=== PATIENT | female | born 1940 | race Caucasian/White ===

== ENCOUNTER → 2016-09-29 | Day surgery (SDC) | payer MEDICARE, BC ==
[2016-09-28 10:39] VITALS: BMI 30.2
[~2016-09-29] MED LIST: SODIUM CHLORIDE 0.9% 1,000 ML IV SCH
[2016-09-29 10:49] VITALS: PULSE 95; TEMP 97.7
[2016-09-29 15:04] VITALS: BP 160/72
--- NOTE | 2016-09-29 16:00 | CE ---
DATE OF SERVICE: PROCEDURE: 1. 12-lead EC-lead ECG shows sinus rhythm with left atrial enlargement and normal MS interval and narrow QRS, normal ST segments. Normal QT interval and no evidence of delta waves, no epsilon waves. 2. Tilt Table Test: Baseline blood pressure was 197/90 mmHg, baseline heart rate 93 beats a minute. The patient was tilted upright at an angle of 70 degrees per protocol. With noninvasive continuous blood pressure monitoring her baseline blood pressure was 169/105 mmHg. With upright position at 70 degrees there was a drop in blood pressure about 20 to 30 mmHg but without any symptoms. Her blood pressure then subsequently remained in the 140s systolic without any symptoms. She was laid supine at the end of the procedure. There was a mild increase in heart rate to 110 beats a minute. IMPRESSION: Possible mild orthostatic hypotension syndrome, but she had no symptoms from change in her blood pressure.
== END ==
LOC: CATHEP 10:00
PROVIDERS: ATTEND Internal Medicine Clinical Cardiac Electrophysiology
DX: R55 Syncope and collapse (principal)
CPT/HCPCS: 93005; 93660

== ENCOUNTER → 2018-11-14 | Outpatient (CLI) | payer MEDICARE, BC ==
--- NOTE | 2018-11-15 08:16 | MM ---
Reason for exam: additional evaluation requested from prior study. History: Patient has history of breast cancer at age 77 and history of other cancer. Lumpectomy of the left breast, 2018. Taking antineoplastic for 1 year beginning at age 77. Physical Findings: Nurse did not find any significant physical abnormalities on exam. MG 3D Diag Mammo W/Cad VEE Bilateral CC and MLO view(s) were taken. Stable benign calcifications. There is chronic nodularity bilaterally. There is no discrete abnormality. No significant new findings when compared with previous films. These results were verbally communicated with the patient and result sheet given to the patient on 11/14/18. ASSESSMENT: Benign, BI-RAD 2 RECOMMENDATION: Follow-up diagnostic mammogram of both breasts in 1 year.
== END | disposition home or self-care (01) ==
LOC: RADMAMWWP 15:09
PROVIDERS: ATTEND Internal Medicine Hematology & Oncology
DX: Z12.31 Encounter for screening mammogram for malignant neoplasm of breast (principal); Z85.3 Personal history of malignant neoplasm of breast
CPT/HCPCS: 77066; G0279; 77062

== ENCOUNTER 2019-07-21 13:23 | Emergency (ER) | payer MEDICARE, BC ==
[2019-07-21 13:47] VITALS: RESP 18
[2019-07-21] MEDS ORDERED: DIPH,PERTUS(ACELL)TETVAC-LF 0.5 ML VIAL IM ONE (14:06)
[2019-07-21] MEDS ORDERED: LIDOCAINE 1% INJ 10MG/ML (20 ML MDV) SQ ONE (14:06)
--- NOTE | 2019-07-21 14:40 | XR ---
EXAMINATION TYPE: XR elbow complete LT DATE OF EXAM: 07/21/2019 COMPARISON: None HISTORY: Pain following fall TECHNIQUE: 2 view left elbow FINDINGS: Radius aligns normally with the humerus. There is mild soft tissue swelling over the radial aspect of the elbow. Anterior fat pad is normal. No elevation of posterior fat pad is evident. No di splaced fractures are evident. Joint space appears preserved. IMPRESSION: 1. No acute osseous abnormality. 2. There may be some soft tissue swelling over the radial aspect of the elbow
--- NOTE | 2019-07-21 15:15 | XR ---
EXAMINATION TYPE: XR knee complete RT DATE OF EXAM: 07/21/2019 COMPARISON: None HISTORY: Pain TECHNIQUE: Three-view right knee FINDINGS: Degenerative changes are present along the medial tibial plateau and distal radial femoral condyle. Medial compartment joint space spurring is present. Some lateral femoral condylar spurring i s present. There is large patellofemoral joint space spurring. No joint effusion is evident. IMPRESSION: 1. Advanced degenerative joint changes right knee. 2. No acute posttraumatic changes
--- NOTE | 2019-07-21 15:21 | ED ---
Upper Extremity HPI - General Chief Complaint: Extremity Injury, Upper Stated Complaint: Fall Time Seen by Provider: 07/21/19 13:50 Source: patient, RN notes reviewed, old records reviewed Mode of arrival: wheelchair Limitations: no limitations - History of Present Illness Initial Comments: Patient is a 79 year old female, presents today for concern for fall yesterday, and hitting left elbow and R knee. She has a laceration over left elbow. She reports full range of motion. Patient reports she had no chest pain or dizziness prior to her fall. She states that she was able to ambulate and reports she is here for evaluation for the laceration. She states that she has no other complaints. - Related Data Home Medications Medication Instructions Recorded Confirmed ARIPiprazole [Abilify] 2 mg PO DAILY 09/28/16 09/28/16 Acetaminophen [Tylenol Arthritis] 650 mg PO BID 09/28/16 09/28/16 Famotidine [Pepcid] 20 mg PO HS 09/28/16 09/29/16 Levothyroxine Sodium [Synthroid] 112 mcg PO DAILY 09/28/16 09/28/16 Lovastatin [Mevacor] 20 mg PO HS 09/28/16 09/28/16 Meclizine [Antivert] 25 mg PO TID PRN 09/28/16 09/29/16 Meloxicam [Mobic] 15 mg PO DAILY PRN 09/28/16 09/29/16 cloZAPine [Clozaril] 200 mg PO 1600 09/28/16 09/28/16 cloZAPine [Clozaril] 350 mg PO HS 09/28/16 09/28/16 levETIRAcetam [Keppra] 200 mg PO TID 09/28/16 09/29/16 Allergies Allergy/AdvReac Type Severity Reaction Status Date / Time No Known Allergies Allergy Verified 07/21/19 13:47 Review of Systems ROS Statement: Those systems with pertinent positive or pertinent negative responses have been documented in the HPI. ROS Other: All systems not noted in ROS Statement are negative. Past Medical History Past Medical History: Cancer, Memory Impairment, Seizure Disorder, Thyroid Disorder Additional Past Medical History / Comment(s): see Dr Hernández H & P, hx. cervical cancer, dizzy spells & falling, breast ca History of Any Multi-Drug Resistant Organisms: None Reported Past Surgical History: Breast Surgery Additional Past Surgical History / Comment(s): surg for breast abscess x2, lum pectomy left Past Anesthesia/Blood Transfusion Reactions: No Reported Reaction Past Psychological History: Anxiety Smoking Status: Never smoker Past Alcohol Use History: None Reported Past Drug Use History: None Reported - Past Family History Mother Family Medical History: No Reported History General Exam - General Exam Comments Initial Comments: 79 year old female, no distress. Limitations: no limitations General appearance: alert, in no apparent distress Head exam: Present: atraumatic, normocephalic, normal inspection Eye exam: Present: normal appearance, PERRL, EOMI. Absent: scleral icterus, conjunctival injection, periorbital swelling ENT exam: Present: normal exam, mucous membranes moist Neck exam: Present: normal inspection. Absent: tenderness, meningismus, lymphadenopathy Respiratory exam: Present: normal lung sounds bilaterally. Absent: respiratory distress, wheezes, rales, rhonchi, stridor Cardiovascular Exam: Present: regular rate, normal rhythm, normal heart sounds. Absent: systolic murmur, diastolic murmur, rubs, gallop, clicks GI/Abdominal exam: Present: soft, normal bowel sounds. Absent: distended, tenderness, guarding, rebound, rigid Extremities exam: Present: full ROM, normal capillary refill. Absent: normal inspection, tenderness, pedal edema, joint swelling, calf tenderness Left Upper Arm exam: Present: normal inspection, full ROM Elbow exam: Present: full ROM, laceration (3cm laceration over olecranon). Absent: normal inspection Forearm Wrist exam: Present: normal inspection, full ROM Hand Wrist exam: Present: normal inspection Neuro motor exam: Present: wrist extension intact, thumb opposition intact, thumb IP flexion intact, thumb adduction intact, fingers 2-5 abduction intact (d) Vascular: Present: normal capillary refill Back exam: Present: normal inspection Neurological exam: Present: alert, oriented X3, CN II-XII intact Psychiatric exam: Present: normal affect, normal mood Skin exam: Present: warm, dry, intact, normal color. Absent: rash Course Vital Signs 07/21/19 07/21/19 13:43 15:10 Temperature 98.7 F 98.5 F Pulse Rate 99 89 Respiratory 18 18 Rate Blood Pressure 132/68 132/80 O2 Sat by Pulse 97 100 Oximetry Procedures - Laceration Laceration #1 Site: upper extremity (elbow) Size (cm): 3 Description: linear Depth: simple, single layer Anesthetic Used: lidocaine 1% Anesthesia Technique: local infiltration Amount (mls): 4 Pre-repair: wound explored, irrigated extensively Type of Sutures: nylon Size of Sutures: 5-0 Number of Sutures: 4 Technique: simple, interrupted Patient Tolerated Procedure: well, no complications Medical Decision Making - Medical Decision Making 79 year old female with knee pain and elbow pain. She had fallen yesterday. She denies chest pain or lightheadedness. Patient has full ROM of knee and elbow. Laceration over elbow was repaired with 4 sutures. TDAP updated. xray of knee and elbow show no fracture. Discussed suture care and close follow up. Discussed return parameters. - Radiology Data Radiology results: report reviewed Advanced degenerative joint changes right knee. No acute post traumatic changes. Elbow X-ray shows no acute osseous abnormality. Soft tissue swelling over radial aspect elbow. Disposition Clinical Impression: Elbow laceration, Fall, Knee contusion Disposition: HOME SELF-CARE Condition: Good Instructions (If sedation given, give patient instructions): Care For Your Stitches (DC), Knee Sprain (DC), Elbow Sprain (ED) Additional Instructions: Please return to the emergency room in 8-10 days to have sutures removed. Please leave wound covered for the first 24-48 hours and then leave open to air after that time. Please use clean soap and water to clean the suture area to prevent scabbing over the top of your sutures. Please watch for any signs of infection which may include but not limited to increased pain, swelling, redness, fever or chills. Please return to the emergency room if any signs of infection do occur. Please return to the emergency room for any other concerns or complications. Is patient prescribed a controlled substance at d/c from ED?: No Referrals: Anthony English MD [Primary Care Provider] - 1-2 days Time of Disposition: 15:20
[2019-07-21 15:34] VITALS: BP 132/80; PULSE 89; TEMP 98.5
== END 2019-07-21 15:29 | disposition home or self-care (01) ==
LOC: EC 13:23
DX: S51.012A Laceration without foreign body of left elbow, initial encounter (principal); S80.01XA Contusion of right knee, initial encounter; Z23 Encounter for immunization; E07.9 Disorder of thyroid, unspecified; G40.909 Epilepsy, unspecified, not intractable, without status epilepticus; Z79.890 Hormone replacement therapy; Z79.899 Other long term (current) drug therapy; Z85.3 Personal history of malignant neoplasm of breast; Z85.41 Personal history of malignant neoplasm of cervix uteri; W18.09XA Striking against other object with subsequent fall, initial encounter
CPT/HCPCS: 73080; 73562; 90715; 99284; 12002; 90471; J2001

== ENCOUNTER → 2020-04-06 | Outpatient (CLI) | payer MEDICARE, BC ==
--- NOTE | 2020-04-06 14:38 | MM ---
Reason for exam: additional evaluation requested from prior study. Last mammogram was performed 1 year and 5 months ago. History: Patient has history of breast cancer at age 77 and history of other cancer. Lumpectomy of the left breast, 2018. Taking antineoplastic for 1 year beginning at age 77. Physical Findings: Nurse did not find any significant physical abnormalities on exam. MG 3D Diag Mammo W/Cad VEE Bilateral CC and MLO view(s) were taken. Prior study comparison: November 14, 2018, bilateral MG 3d diag mammo w/cad VEE. September 21, 2017, mammogram. July 05, 2017, mammogram. December 01, 2016, mammogram. The breast tissue is heterogeneously dense. This may lower the sensitivity of mammography. Previous mammotome biopsy in the left breast. There is chronic nodularity in the right breast subareolar region and anterior medial aspect. Post surgical and post therapy changes left breast. Benign vascular and secretory calcifications on the left. Mole superior left breast. No significant new findings when compared with previous films. These results were verbally communicated with the patient and result sheet given to the patient on 04/06/20. ASSESSMENT: Benign, BI-RAD 2 RECOMMENDATION: Follow-up diagnostic mammogram of both breasts in 1 year.
--- NOTE | 2020-04-06 18:21 | BD ---
EXAMINATION TYPE: Axial Bone Density DATE OF EXAM: 04/06/2020 COMPARISON: NONE CLINICAL HISTORY: Postmenopausal screening Height: 58 Weight: FRAX RISK QUESTIONS: Alcohol (3 or more units per day): no Family History (Parent hip fracture): no Glucocorticoids (More than 3mos): no (Ex: prednisone, prednisolone, methylprednisolone, dexamethasone, and hydrocortisone). History of Fracture in Adulthood: no Secondary Osteoporosis: 1. Type 1 Diabetes: no 2. Hyperthyroidism: no 3. Menopause before 45: yes 4. Malnutrition: no 5. Chronic liver disease: no Rheumatoid Arthritis: no Current Tobacco Use: no RISK FACTORS HISTORY OF: Family History of Osteoporosis: no Active: no Diet low in dairy products/other sources of calcium: no Postmenopausal woman: unsure Lost more than 2 inches in height since high school: yes Frequent falls: pt very unsteady MEDICATIONS: stoke meds, blood pressure meds, cholesterol meds, Thyroid Medications: synthroid How Lon years Additional History: pt has had 2 strokes EXAM MEASUREMENTS: Bone mineral densitometry was performed using the [employer]. Bone mineral density as measured about the Lumbar spine is: ----- L1-L4(G/cm2): 1.462 T Score Values are as follows: ----- L2: 2.7 ----- L3: 3.9 ----- L4: 2.7 ----- L1-L4: 2.4 Bone mineral density : baseline Bone mineral density about the R hip (g/cm2): 0.913 Bone mineral density about the L hip (g/cm2): 0.719 T Score values are as follows: -----R Neck: -0.9 -----L Neck: -2.3 -----R Total: 0.1 -----L Total: -1.1 Bone mineral density : baseline IMPRESSION: Osteopenia (T Score between -2.5 and -1). There is slightly increased risk of fracture and the patient may be considered for treatment. Re-Screen 2-5 years. NOTE: T-SCORE=SD OF THE YOUNG ADULT MEAN.
== END | disposition home or self-care (01) ==
LOC: RADMAMWWP 10:16
PROVIDERS: ATTEND Internal Medicine Hematology & Oncology
DX: Z08 Encounter for follow-up examination after completed treatment for malignant neoplasm (principal); M85.80 Other specified disorders of bone density and structure, unspecified site; Z85.3 Personal history of malignant neoplasm of breast; Z79.890 Hormone replacement therapy
CPT/HCPCS: 77080; 77066; G0279; 77062

== ENCOUNTER 2021-03-16 16:37 | Inpatient (IN) | payer MEDICARE, BC ==
[2021-03-16 17:58] LABS: Basophils % (A) 0 %; Eosinophils % (A) 0 %; HCT 36.8 % (34.0-46.0); HGB 12.4 gm/dL (11.4-16.0); Lymphocytes # (A) 1.1 k/uL (1.0-4.8); Lymphocytes % (A) 24 %; MCH 31.2 pg (25.0-35.0); MCHC 33.8 g/dL (31.0-37.0); MCV 92.3 fL (80.0-100.0); Mean Platelet Volume 9.2; Monocytes # (A) 0.2 k/uL (0-1.0); Monocytes % (A) 4 %; Neutrophils # (A) 3.2 k/uL (1.3-7.7); Neutrophils % (A) 69 %; Platelet Count 141 k/uL (150-450); RBC 3.99 m/uL (3.80-5.40); RDW 13.6 % (11.5-15.5); WBC 4.7 k/uL (3.8-10.6)
--- NOTE | 2021-03-16 18:04 | ED ---
Weakness HPI - General Chief complaint: Weakness Stated complaint: Fluid Retention, Hearing Voices Source: patient, EMS Mode of arrival: EMS - History of Present Illness Initial comments: 81-year-old female past history of seizures, thyroid disorder, schizophrenia who presents emergency room with reported weakness and auditory hallucinations. Family is at bedside and helps provide the history. They state that she is a resident at [facility] where she is independent. She felt extremely weak today and was unable to get up out of bed. She had urinary incontinence. She states she has been hearing voices in her head which are louder than normal. She reports that she has been taking her medications as directed. Has developed some lower extremity edema which is uncommon for her. Family came over and found her lying in bed and called EMS. She does wear life alert however the patient was so forgetful that she forgot to use it. She admits to some mild shortness of breath. No chest pain. Denies headaches or visual changes. No fevers or chills. No abdominal pain. No changes in bowel or bladder habits. No other alleviating, precipitating or modified factors - Related Data Home Medications Medication Instructions Recorded Confirmed ARIPiprazole [Abilify] 2 mg PO DAILY 09/28/16 03/16/21 Levothyroxine Sodium [Synthroid] 112 mcg PO DAILY 09/28/16 03/16/21 Lovastatin [Mevacor] 20 mg PO HS 09/28/16 03/16/21 Meclizine [Antivert] 25 mg PO BID PRN 09/28/16 03/16/21 cloZAPine [Clozaril] 300 mg PO HS 09/28/16 03/16/21 Ascorbic Acid [Vitamin C] 1,000 mg PO DAILY@119903/16/21 03/16/21 Calcium Carbonate [Calcium] 600 mg PO DAILY@119903/16/21 03/16/21 Cholecalciferol [Vitamin D3 (10 20 mcg PO DAILY@119903/16/21 03/16/21 Mcg = 400 Iu)] Fluticasone Nasal [place] [Flonase 1 spray EA NOSTRIL 03/16/21 03/16/21 Nasal [place]] Letrozole 2.5 mg PO 03/16/21 03/16/21 Metoprolol Succinate (ER) [Toprol 25 mg PO DAILY 03/16/21 03/16/21 XL] Multivitamins, Thera [Multivitamin 1 tab PO DAILY 03/16/21 03/16/21 (formulary)] Pantoprazole Sodium [Protonix] 40 mg PO DAILY 03/16/21 03/16/21 Rivastigmine Tartrate 1.5 mg PO BID 03/16/21 03/16/21 [Rivastigmine] Tolterodine ER [Detrol LA] 4 mg PO W/SUPPER 03/16/21 03/16/21 Vitamin E (Dl,Tocopheryl Acet) 400 unit PO DAILY@1200 03/16/21 03/16/21 [Vitamin E (400 Iu = 180 mg)] polyethylene glycoL 3350 [Miralax] 17 gm PO DAILY 03/16/21 03/16/21 rOPINIRole HCL [Requip] 0.25 mg PO W/SUPPER 03/16/21 03/16/21 Allergies Allergy/AdvReac Type Severity Reaction Status Date / Time amoxicillin [From Augmentin] AdvReac Rash/Hives Verified 03/16/21 18:45 capsaicin [From Zostrix] AdvReac Rash/Hives Verified 03/16/21 18:46 clavulanic acid AdvReac Rash/Hives Verified 03/16/21 18:45 [From Augmentin] Review of Systems ROS Statement: Those systems with pertinent positive or pertinent negative responses have been documented in the HPI. ROS Other: All systems not noted in ROS Statement are negative. Past Medical History Past Medical History: Cancer, Memory Impairment, Seizure Disorder, Thyroid Disorder Additional Past Medical History / Comment(s): hx. cervical cancer, dizzy spells & falling, breast ca History of Any Multi-Drug Resistant Organisms: None Reported Past Surgical History: Breast Surgery Additional Past Surgical History / Comment(s): surg for breast abscess x2, lumpectomy left Past Anesthesia/Blood Transfusion Reactions: No Reported Reaction Past Psychological History: Anxiety Smoking Status: Former smoker Past Alcohol Use History: None Reported Past Drug Use History: None Reported - Past Family History Mother Family Medical History: No Reported History General Exam General appearance: alert, in no apparent distress Head exam: Present: atraumatic, normocephalic, normal inspection Eye exam: Present: normal appearance, PERRL, EOMI. Absent: scleral icterus, conjunctival injection, periorbital swelling ENT exam: Present: normal exam, mucous membranes moist Neck exam: Present: normal inspection. Absent: tenderness, meningismus, lymphadenopathy Respiratory exam: Present: normal lung sounds bilaterally. Absent: respiratory distress, wheezes, rales, rhonchi, stridor Cardiovascular Exam: Present: regular rate, normal rhythm, normal heart sounds. Absent: systolic murmur, diastolic murmur, rubs, gallop, clicks GI/Abdominal exam: Present: soft, normal bowel sounds. Absent: distended, tenderness, guarding, rebound, rigid Extremities exam: Present: full ROM, normal capillary refill, pedal edema. Absent: tenderness, joint swelling, calf tenderness Back exam: Present: normal inspection Neurological exam: Present: alert, oriented X3, CN II-XII intact Psychiatric exam: Present: normal affect, normal mood Skin exam: Present: warm, dry, intact, normal color. Absent: rash Course Vital Signs 03/16/21 03/16/21 03/16/21 16:44 17:49 20:22 Temperature 97.8 F Pulse Rate 97 90 97 Respiratory 18 18 20 Rate Blood Pressure 176/98 171/85 174/75 O2 Sat by Pulse 99 98 99 Oximetry 03/16/21 22:14 Temperature Pulse Rate 97 Respiratory 20 Rate Blood Pressure 174/98 O2 Sat by Pulse 99 Oximetry EKG Findings - EKG Comments: EKG Findings:: EKG demonstrates normal sinus rhythm with rate of 89. IA interval 142. QRS is 76. QTC of 462. No acute ST segment elevations or depressions concerning for ischemic changes Medical Decision Making - Medical Decision Making Upon arrival patient's placed into room 11. A thorough history and physical exam was performed. IV is established. Laboratory studies were conducted. Chest x-ray was performed as well as lower extremity Dopplers due to the lower extremity edema. Review of the laboratory studies demonstrate a platelet count of 141. D-dimer 0.7 and troponin is negative. Urinalysis demonstrates 2+ ketones. TSH 2.7. Chest x-ray demonstrates no active cardio pulmonary disease. Venous Doppler of the lower extremity demonstrates no DVT. Patient does have an elevated d-dimer however is 0.7. This would be considered negative when we age-adjusted the patient's d-dimer. Lower extremity Dopplers are negative and the patient's vitals are stable therefore CT will not be performed at this time. I did discuss the results with the patient and her family at bedside. As she is weak and unable to ambulate or care for herself I did recommend admission for physical therapy and occupational therapy evaluation. I will consult psychiatry. I called and spoke with Soraya from [facility] who agreed to admit the patient. She was taken to the floor in stable condition. - Lab Data Result diagrams: 03/17/21 04:35 03/18/21 06:02 Lab Results 03/16/21 03/16/21 03/16/21 Range/Units 17:47 17:47 17:47 WBC 4.7 (3.8-10.6) k/uL RBC 3.99 (3.80-5.40) m/uL Hgb 12.4 (11.4-16.0) gm/dL Hct 36.8 (34.0-46.0) % MCV 92.3 (80.0-100.0) fL MCH 31.2 (25.0-35.0) pg MCHC 33.8 (31.0-37.0) g/dL RDW 13.6 (11.5-15.5) % Plt Count 141 L (150-450) k/uL MPV 9.2 Neutrophils % 69 % Lymphocytes % 24 % Monocytes % 4 % Eosinophils % 0 % Basophils % 0 % Neutrophils # 3.2 (1.3-7.7) k/uL Lymphocytes # 1.1 (1.0-4.8) k/uL Monocytes # 0.2 (0-1.0) k/uL Eosinophils # 0.0 (0-0.7) k/uL Basophils # 0.0 (0-0.2) k/uL PT 9.7 (9.0-12.0) sec INR 0.9 (<1.2) D-Dimer (<0.60) mg/L FEU Sodium 141 (137-145) mmol/L Potassium 3.7 (3.5-5.1) mmol/L Chloride 106 (98-107) mmol/L Carbon Dioxide 23 (22-30) mmol/L Anion Gap 12 mmol/L BUN 11 (7-17) mg/dL Creatinine 0.57 (0.52-1.04) mg/dL Est GFR (CKD-EPI)AfAm >90 (>60 ml/min/1.73 sqM) Est GFR (CKD-EPI)NonAf 87 (>60 ml/min/1.73 sqM) Glucose 88 (74-99) mg/dL Calcium 8.9 (8.4-10.2) mg/dL Total Bilirubin 0.3 (0.2-1.3) mg/dL AST 28 (14-36) U/L ALT 15 (4-34) U/L Alkaline Phosphatase 103 (38-126) U/L Troponin I (0.000-0.034) ng/mL NT-Pro-B Natriuret Pep pg/mL Total Protein 6.5 (6.3-8.2) g/dL Albumin 4.1 (3.5-5.0) g/dL TSH (0.465-4.680) mIU/L Urine Color Urine Appearance (Clear) Urine pH (5.0-8.0) Ur Specific [place] (1.001-1.035) Urine Protein (Negative) Urine Glucose (UA) (Negative) Urine Ketones (Negative) Urine Blood (Negative) Urine Nitrite (Negative) Urine Bilirubin (Negative) Urine Urobilinogen (<2.0) mg/dL Ur Leukocyte Esterase (Negative) Clozapine (200-700) ng/mL Norclozapine (200-700) ng/mL 03/16/21 03/16/21 03/16/21 Range/Units 17:47 17:47 17:47 WBC (3.8-10.6) k/uL RBC (3.80-5.40) m/uL Hgb (11.4-16.0) gm/dL Hct (34.0-46.0) % MCV (80.0-100.0) fL MCH (25.0-35.0) pg MCHC (31.0-37.0) g/dL RDW (11.5-15.5) % Plt Count (150-450) k/uL MPV Neutrophils % % Lymphocytes % % Monocytes % % Eosinophils % % Basophils % % Neutrophils # (1.3-7.7) k/uL Lymphocytes # (1.0-4.8) k/uL Monocytes # (0-1.0) k/uL Eosinophils # (0-0.7) k/uL Basophils # (0-0.2) k/uL PT (9.0-12.0) sec INR (<1.2) D-Dimer (<0.60) mg/L FEU Sodium (137-145) mmol/L Potassium (3.5-5.1) mmol/L Chloride (98-107) mmol/L Carbon Dioxide (22-30) mmol/L Anion Gap mmol/L BUN (7-17) mg/dL Creatinine (0.52-1.04) mg/dL Est GFR (CKD-EPI)AfAm (>60 ml/min/1.73 sqM) Est GFR (CKD-EPI)NonAf (>60 ml/min/1.73 sqM) Glucose (74-99) mg/dL Calcium (8.4-10.2) mg/dL Total Bilirubin (0.2-1.3) mg/dL AST (14-36) U/L ALT (4-34) U/L Alkaline Phosphatase (38-126) U/L Troponin I <0.012 (0.000-0.034) ng/mL NT-Pro-B Natriuret Pep 167 pg/mL Total Protein (6.3-8.2) g/dL Albumin (3.5-5.0) g/dL TSH 2.770 (0.465-4.680) mIU/L Urine Color Urine Appearance (Clear) Urine pH (5.0-8.0) Ur Specific [place] (1.001-1.035) Urine Protein (Negative) Urine Glucose (UA) (Negative) Urine Ketones (Negative) Urine Blood (Negative) Urine Nitrite (Negative) Urine Bilirubin (Negative) Urine Urobilinogen (<2.0) mg/dL Ur Leukocyte Esterase (Negative) Clozapine (200-700) ng/mL Norclozapine (200-700) ng/mL 03/16/21 03/16/21 03/16/21 Range/Units 17:47 18:38 21:54 WBC (3.8-10.6) k/uL RBC (3.80-5.40) m/uL Hgb (11.4-16.0) gm/dL Hct (34.0-46.0) % MCV (80.0-100.0) fL MCH (25.0-35.0) pg MCHC (31.0-37.0) g/dL RDW (11.5-15.5) % Plt Count (150-450) k/uL MPV Neutrophils % % Lymphocytes % % Monocytes % % Eosinophils % % Basophils % % Neutrophils # (1.3-7.7) k/uL Lymphocytes # (1.0-4.8) k/uL Monocytes # (0-1.0) k/uL Eosinophils # (0-0.7) k/uL Basophils # (0-0.2) k/uL PT (9.0-12.0) sec INR (<1.2) D-Dimer 0.70 H (<0.60) mg/L FEU Sodium (137-145) mmol/L Potassium (3.5-5.1) mmol/L Chloride (98-107) mmol/L Carbon Dioxide (22-30) mmol/L Anion Gap mmol/L BUN (7-17) mg/dL Creatinine (0.52-1.04) mg/dL Est GFR (CKD-EPI)AfAm (>60 ml/min/1.73 sqM) Est GFR (CKD-EPI)NonAf (>60 ml/min/1.73 sqM) Glucose (74-99) mg/dL Calcium (8.4-10.2) mg/dL Total Bilirubin (0.2-1.3) mg/dL AST (14-36) U/L ALT (4-34) U/L Alkaline Phosphatase (38-126) U/L Troponin I <0.012 (0.000-0.034) ng/mL NT-Pro-B Natriuret Pep pg/mL Total Protein (6.3-8.2) g/dL Albumin (3.5-5.0) g/dL TSH (0.465-4.680) mIU/L Urine Color Light Yellow Urine Appearance Clear (Clear) Urine pH 7.0 (5.0-8.0) Ur Specific [place] 1.007 (1.001-1.035) Urine Protein Negative (Negative) Urine Glucose (UA) Negative (Negative) Urine Ketones 2+ H (Negative) Urine Blood Negative (Negative) Urine Nitrite Negative (Negative) Urine Bilirubin Negative (Negative) Urine Urobilinogen <2.0 (<2.0) mg/dL Ur Leukocyte Esterase Negative (Negative) Clozapine (200-700) ng/mL Norclozapine (200-700) ng/mL 09/01/21 09/01/21 09/01/21 Range/Units 01:27 04:35 04:35 WBC 5.2 (3.8-10.6) k/uL RBC 3.62 L (3.80-5.40) m/uL Hgb 10.6 L (11.4-16.0) gm/dL Hct 33.4 L (34.0-46.0) % MCV 92.1 (80.0-100.0) fL MCH 29.3 (25.0-35.0) pg MCHC 31.8 (31.0-37.0) g/dL RDW 13.5 (11.5-15.5) % Plt Count 175 (150-450) k/uL MPV 8.8 Neutrophils % 57 % Lymphocytes % 35 % Monocytes % 5 % Eosinophils % 0 % Basophils % 0 % Neutrophils # 3.0 (1.3-7.7) k/uL Lymphocytes # 1.8 (1.0-4.8) k/uL Monocytes # 0.3 (0-1.0) k/uL Eosinophils # 0.0 (0-0.7) k/uL Basophils # 0.0 (0-0.2) k/uL PT (9.0-12.0) sec INR (<1.2) D-Dimer (<0.60) mg/L FEU Sodium 138 (137-145) mmol/L Potassium 3.1 L (3.5-5.1) mmol/L Chloride 104 (98-107) mmol/L Carbon Dioxide 28 (22-30) mmol/L Anion Gap 6 mmol/L BUN 13 (7-17) mg/dL Creatinine 0.78 (0.52-1.04) mg/dL Est GFR (CKD-EPI)AfAm 82 (>60 ml/min/1.73 sqM) Est GFR (CKD-EPI)NonAf 71 (>60 ml/min/1.73 sqM) Glucose 98 (74-99) mg/dL Calcium 8.7 (8.4-10.2) mg/dL Total Bilirubin (0.2-1.3) mg/dL AST (14-36) U/L ALT (4-34) U/L Alkaline Phosphatase (38-126) U/L Troponin I <0.012 (0.000-0.034) ng/mL NT-Pro-B Natriuret Pep pg/mL Total Protein (6.3-8.2) g/dL Albumin (3.5-5.0) g/dL TSH (0.465-4.680) mIU/L Urine Color Urine Appearance (Clear) Urine pH (5.0-8.0) Ur Specific [place] (1.001-1.035) Urine Protein (Negative) Urine Glucose (UA) (Negative) Urine Ketones (Negative) Urine Blood (Negative) Urine Nitrite (Negative) Urine Bilirubin (Negative) Urine Urobilinogen (<2.0) mg/dL Ur Leukocyte Esterase (Negative) Clozapine (200-700) ng/mL Norclozapine (200-700) ng/mL 03/18/21 03/18/21 Range/Units 06:02 06:02 WBC (3.8-10.6) k/uL RBC (3.80-5.40) m/uL Hgb (11.4-16.0) gm/dL Hct (34.0-46.0) % MCV (80.0-100.0) fL MCH (25.0-35.0) pg MCHC (31.0-37.0) g/dL RDW (11.5-15.5) % Plt Count (150-450) k/uL MPV Neutrophils % % Lymphocytes % % Monocytes % % Eosinophils % % Basophils % % Neutrophils # (1.3-7.7) k/uL Lymphocytes # (1.0-4.8) k/uL Monocytes # (0-1.0) k/uL Eosinophils # (0-0.7) k/uL Basophils # (0-0.2) k/uL PT (9.0-12.0) sec INR (<1.2) D-Dimer (<0.60) mg/L FEU Sodium (137-145) mmol/L Potassium 3.9 (3.5-5.1) mmol/L Chloride (98-107) mmol/L Carbon Dioxide (22-30) mmol/L Anion Gap mmol/L BUN (7-17) mg/dL Creatinine (0.52-1.04) mg/dL Est GFR (CKD-EPI)AfAm (>60 ml/min/1.73 sqM) Est GFR (CKD-EPI)NonAf (>60 ml/min/1.73 sqM) Glucose (74-99) mg/dL Calcium (8.4-10.2) mg/dL Total Bilirubin (0.2-1.3) mg/dL AST (14-36) U/L ALT (4-34) U/L Alkaline Phosphatase (38-126) U/L Troponin I (0.000-0.034) ng/mL NT-Pro-B Natriuret Pep pg/mL Total Protein (6.3-8.2) g/dL Albumin (3.5-5.0) g/dL TSH (0.465-4.680) mIU/L Urine Color Urine Appearance (Clear) Urine pH (5.0-8.0) Ur Specific [place] (1.001-1.035) Urine Protein (Negative) Urine Glucose (UA) (Negative) Urine Ketones (Negative) Urine Blood (Negative) Urine Nitrite (Negative) Urine Bilirubin (Negative) Urine Urobilinogen (<2.0) mg/dL Ur Leukocyte Esterase (Negative) Clozapine 676 (200-700) ng/mL Norclozapine 292 (200-700) ng/mL Disposition Clinical Impression: Weakness, Auditory hallucination Disposition: ADMITTED IP TO THIS [facility] Condition: Stable Is patient prescribed a controlled substance at d/c from ED?: No Decision to Admit Reason: Admit from EC Decision Date: 03/16/21 Decision Time: 21:12
[2021-03-16 18:08] LABS: INR 0.9 (<1.2); Prothrombin Time 9.7 sec (9.0-12.0)
[2021-03-16 18:11] LABS: ALT 15 U/L (4-34); AST 28 U/L (14-36); African American GFR (CKD) >90 (>60 ml/min/1.73 sqM); Albumin 4.1 g/dL (3.5-5.0); Alkaline Phosphatase 103 U/L (38-126); Anion Gap 12 mmol/L; Blood Urea Nitrogen 11 mg/dL (7-17); Calcium 8.9 mg/dL (8.4-10.2); Carbon Dioxide 23 mmol/L (22-30); Chloride 106 mmol/L (98-107); Glucose 88 mg/dL (74-99); Non-African American GFR(CKD) 87 (>60 ml/min/1.73 sqM); Potassium 3.7 mmol/L (3.5-5.1); Sodium 141 mmol/L (137-145); Total Bilirubin 0.3 mg/dL (0.2-1.3); Total Protein 6.5 g/dL (6.3-8.2)
[2021-03-16 19:01] LABS: Appearance,Urine Clear (Clear); Bilirubin,Urine Negative (Negative); Blood,Urine Negative (Negative); Color,Urine Light Yellow; Glucose,Urine (UA) Negative (Negative); Ketones,Urine 2+ (Negative); Leukocyte Esterase,Urine Negative (Negative); Nitrite,Urine Negative (Negative); Protein,Urine Negative (Negative); Specific Gravity,Urine 1.007 (1.001-1.035); Urobilinogen,Urine <2.0 mg/dL (<2.0)
--- NOTE | 2021-03-16 19:12 | US ---
EXAMINATION TYPE: US venous doppler duplex LE BI DATE OF EXAM: 03/16/2021 6:04 PM COMPARISON: NONE CLINICAL HISTORY: leg swelling. SIDE PERFORMED: Bilateral TECHNIQUE: The lower extremity deep venous system is examined utilizing real time linear array sonog van with graded compression, doppler sonography and color-flow sonography. VESSELS IMAGED: Common Femoral Vein Deep Femoral Vein Greater Saphenous Vein * Femoral Vein Popliteal Vein Small Saphenous Vein * Proximal Calf Veins (* superficial vessels) Right Leg: Negative for DVT Left Leg: Negative for DVT IMPRESSION: No evidence of deep vein thrombosis in both legs.
--- NOTE | 2021-03-16 19:53 | XR ---
EXAMINATION TYPE: XR chest 2V DATE OF EXAM: 03/16/2021 COMPARISON: NONE HISTORY: Short of breath TECHNIQUE: 2 views FINDINGS: Heart is normal. Lungs are clear of infiltrate. Thoracic aorta is atheromatous. There are n o hilar masses. There are chest leads. Bony thorax is intact. There is minor spurring in the thoracic spine. IMPRESSION: No active cardiopulmonary disease. Normal heart.
[2021-03-16] MEDS ORDERED: NALOXONE 0.4 MG/ML 1 ML VIAL IV PRN (21:12)
[2021-03-17] MEDS: LEVOTHYROXINE 112 MCG TAB PO SCH (05:11)
[2021-03-17 05:18] LABS: Basophils % (A) 0 %; Eosinophils % (A) 0 %; HCT 33.4 % (34.0-46.0); HGB 10.6 gm/dL (11.4-16.0); Lymphocytes # (A) 1.8 k/uL (1.0-4.8); Lymphocytes % (A) 35 %; MCH 29.3 pg (25.0-35.0); MCHC 31.8 g/dL (31.0-37.0); MCV 92.1 fL (80.0-100.0); Mean Platelet Volume 8.8; Monocytes # (A) 0.3 k/uL (0-1.0); Monocytes % (A) 5 %; Neutrophils % (A) 57 %; Platelet Count 175 k/uL (150-450); RBC 3.62 m/uL (3.80-5.40); RDW 13.5 % (11.5-15.5); WBC 5.2 k/uL (3.8-10.6)
[2021-03-17 05:31] LABS: Calcium 8.7 mg/dL (8.4-10.2); Potassium 3.1 mmol/L (3.5-5.1)
[2021-03-17] MEDS ORDERED: Potassium Replacement Protocol 1 EACH MISC MISCELLANE PRN (05:50)
[2021-03-17] MEDS: POTASSIUM CHLORIDE ER 20 MEQ TAB.ER PO SCH ×2 (06:03→09:18)
[2021-03-17] MEDS: METOPROLOL SUCCINATE (ER) 25 MG TAB.ER.24H PO SCH (09:18)
[2021-03-17] MEDS: ARIPiprazole 2 MG TAB PO SCH (09:19)
--- NOTE | 2021-03-17 14:04 | P.CN ---
Psychiatric Consult - . Consult date: 03/17/21 Consult:: 03/17/21 13:01 IDENTIFYING DATA: This patient is a 81-year-old female, currently lives independently in [facility] [place] in an apartment and has 3 kids and is currently retired. REASON FOR REFERRAL: Psychiatry was consulted for "auditory hallucinations and history of schizophrenia". HISTORY OF PRESENT ILLNESS: The patient presented to the hospital on 03/16 for weakness and auditory hallucinations. Patient apparently was unable to get out of bed and had urinary incontinence according to ER report. Patient also was reporting an increase in her auditory hallucinations. Patient's troponins and chest x-ray were negative. Patient's nurse taking care of her states that she is not complaining of auditory hallucinations any longer and has been calm and cooperative. Patient was seen sitting at the bedside on her chair and was alert and able to speak with racebook writer. She states that she was urinating in her bed and didn't want to get the carpet wet. She was denying having any weakness. She claims that she was not able to get up and answer the phone when her children called her. She states that she does have a history of falls at home. She claims that she does have good support from her kids as they come and see her often and claims that her son is her guardian. She came that she has a history of schizophrenia for the past 20 years and has been on clozapine for several years now. She is denying any chest pain or any significant side effects from the medication. She states that she follows up with a nurse practitioner at [facility]. She states that her sleep is fair and her appetite is fair. At this time patient denies any suicidal or homical ideations, intent or plan. Patient denies any auditory, visual hallucinations and denies any paranoia or delusions. Patients admits to using no recreational drugs or cigarettes racebook writer spoke with patient son/godfrey at [phone] who stated his concern about his mother's auditory hallucinations in her medications. She had several questions about the medications and her treatment which were answered. Milieu Technician discussed clozapine and the side effects and risk her azul of the medication and also the need for continued follow up with [facility]. PAST PSYCHIATRIC HISTORY: Patient has a a history of schizophrenia. Patient is currently on Abilify and Clozapine for several years. Patient was following up with a [facility] W[facility]ER at [facility]. She was psychiatrically hospitalized over 20 years ago however does not remember where she was admitted. She claims that she did have 1 overdose suicide attempt on aspirin several years ago. Past Medical History: Cancer, Memory Impairment, Seizure Disorder, Thyroid Disorder Additional Past Medical History / Comment(s): hx. cervical cancer, dizzy spells & falling, breast ca ALLERGIES: as per EMR. CHEMICAL DEPENDENCY HISTORY: as per HPI. FAMILY PSYCHIATRIC/SUBSTANCE USE HISTORY: denies SOCIAL HISTORY: Patient was born and raised in [facility] [facility]. 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 She has 3 kids and currently lives independently and [facility] apartments. MENTAL STATUS EXAM: General Appearance: Patient appears to be elderly, short in stature, stated age is alert, pleasant, and attempts to be cooperative. Patient appears to have fair hygiene and grooming wearing hospital gown with fair eye contact. Behavior: Patient is calmly lying in bed without any agitated behavior. Attempts to be cooperative Speech: Patient's speech is fluent and nonpressured. Mood/Affect: Patient reports their mood is "alright", affect is congruent Suicidality/Homicidality: Patient denies having any suicidal or homicidal ideation intent or plan. Perceptions: Patient denies any visual hallucinations and denies any auditory hallucinations Though content/process: There is no evidence of any delusional thought content and thought process is linear and goal-directed. Memory and concentration: AOX3, grossly intact for the purposes of this session. Can spell "WORLD" backwards Judgment and insight: Fair IMPRESSIONS: Schizophrenia PLAN: -At this time patient DOES NOT meet criteria for inpatient psychiatric admission. -Would recommend the following medication changes/additions: Can continue with current medications including clozapine and Abilify as prescribed. -Patient will need to follow-up with [facility] within 1 week upon discharge. -Communicated plan to patient's nurse -Psychiatry will sign off at this time -Please contact with any questions.
[2021-03-17] MEDS: OXYBUTYNIN XL 5 MG TAB.ER.24 PO SCH (19:02)
[2021-03-17] MEDS: RIVASTIGMINE 1.5 MG PO SCH (21:32)
[2021-03-17] MEDS: polyethylene glycoL 3350 17 GM POWD.PACK PO SCH (21:32)
[2021-03-17] MEDS: ATORVASTATIN 10 MG TAB PO SCH (21:33)
[2021-03-17] MEDS: cloZAPine 100 MG TAB PO SCH (21:33)
[2021-03-17] MEDS: LETROZOLE 2.5 MG TAB PO SCH (21:33)
--- NOTE | 2021-03-17 21:47 | P.HPIM ---
History of Present Illness H&P Date: 03/17/21 Chief Complaint: Auditory hallucinations Patient is a 81-year-old female with a known history of cervical cancer, memory impairment, hypothyroidism, history of breast cancer status post surgery and anxiety and previous history of smoking was sent from [facility] where she is independent, due to complaints of auditory hallucinations. Patient states that she is hearing voices. Otherwise patient is a poor historian. Patient also felt very weak unable to get out of bed. Patient had urinary incontinence. Patient does have history of schizophrenia and has been hearing voices in her head which are louder than normal. Patient also developed bilateral lower extremity edema. Patient has been forgetful. No complaints of chest pain. Patient did have mild shortness of breath. No fever no chills. No nausea vomiting abdominal pain or diarrhea. Denied any recent illnesses. Venous duplex is negative for DVT in both legs. Chest x-ray showed no active cardiopulmonary disease. Normal heart. EKG showed normal sinus rhythm Laboratory data showed sodium 141 potassium 3.7 chloride 106 bicarb is 23 BUN 11 creatinine 0.57 D-dimer 0.7 Blood pressure on admission was elevated at 176/98 pulse 97 respiration 18 and pulse ox 91% on room air. Troponin x3 - proBNP 167 Urinalysis is negative for infection. Review of Systems Complete review of systems could not be obtained from the patient except as per HPI. Past Medical History Past Medical History: Cancer, Memory Impairment, Seizure Disorder, Thyroid Disorder Additional Past Medical History / Comment(s): hx. cervical cancer, dizzy spells & falling, breast ca History of Any Multi-Drug Resistant Organisms: None Reported Past Surgical History: Breast Surgery Additional Past Surgical History / Comment(s): surg for breast abscess x2, lumpectomy left Past Anesthesia/Blood Transfusion Reactions: No Reported Reaction Past Psychological History: Anxiety Smoking Status: Former smoker Past Alcohol Use History: None Reported Past Drug Use History: None Reported - Past Family History Mother Family Medical History: No Reported History Medications and Allergies Home Medications Medication Instructions Recorded Confirmed Type ARIPiprazole [Abilify] 2 mg PO DAILY 09/28/16 03/16/21 History Levothyroxine Sodium [Synthroid] 112 mcg PO DAILY 09/28/16 03/16/21 History Lovastatin [Mevacor] 20 mg PO HS 09/28/16 03/16/21 History Meclizine [Antivert] 25 mg PO BID PRN 09/28/16 03/16/21 History cloZAPine [Clozaril] 300 mg PO HS 09/28/16 03/16/21 History Ascorbic Acid [Vitamin C] 1,000 mg PO DAILY@1200 03/16/21 03/16/21 History Calcium Carbonate [Calcium] 600 mg PO DAILY@1200 03/16/21 03/16/21 History Cholecalciferol [Vitamin D3 (10 20 mcg PO DAILY@119903/16/21 03/16/21 History Mcg = 400 Iu)] Fluticasone Nasal [place] [Flonase 1 spray EA NOSTRIL HS 03/16/21 03/16/21 History Nasal [place]] Letrozole 2.5 mg PO HS 03/16/21 03/16/21 History Metoprolol Succinate (ER) [Toprol 25 mg PO DAILY 03/16/21 03/16/21 History Xl] Multivitamins, Thera [Multivitamin 1 tab PO DAILY 03/16/21 03/16/21 History (formulary)] Pantoprazole Sodium [Protonix] 40 mg PO DAILY 03/16/21 03/16/21 History Rivastigmine Tartrate 1.5 mg PO BID 03/16/21 03/16/21 History [Rivastigmine] Tolterodine ER [Detrol LA] 4 mg PO W/SUPPER 03/16/21 03/16/21 History Vitamin E (Dl,Tocopheryl Acet) 400 unit PO DAILY@119903/16/21 03/16/21 History [Vitamin E (400 Iu = 180 mg)] polyethylene glycoL 3350 [Miralax] 17 gm PO DAILY 03/16/21 03/16/21 History rOPINIRole HCL [Requip] 0.25 mg PO W/SUPPER 03/16/21 03/16/21 History Allergies Allergy/AdvReac Type Severity Reaction Status Date / Time amoxicillin [From Augmentin] AdvReac Rash/Hives Verified 03/16/21 18:45 capsaicin [From Zostrix] AdvReac Rash/Hives Verified 03/16/21 18:46 clavulanic acid AdvReac Rash/Hives Verified 03/16/21 18:45 [From Augmentin] Physical Exam Vitals: Vital Signs Temp Pulse Pulse Resp BP BP Pulse Ox 03/17/21 08:00 83 16 03/17/21 07:00 97.9 F 83 16 125/77 93 L 03/17/21 02:00 98 F 85 16 109/64 96 03/16/21 23:11 92 03/16/21 23:07 97.8 F 92 16 134/57 98 03/16/21 22:14 97 20 174/98 99 03/16/21 20:22 97 20 174/75 99 03/16/21 17:49 90 18 171/85 98 03/16/21 16:44 97.8 F 97 18 176/98 99 Intake and Output 03/16/21 03/17/21 03/17/21 22:59 06:59 14:59 Other: Voiding Method Bedside Commode Bedside Commode Diaper Diaper External Catheter External Catheter # Voids 0 0 Weight 77.111 kg PHYSICAL EXAMINATION: Patient is lying in the bed comfortably, no acute distress, awake alert and oriented x1.. HEENT: Normocephalic. Neck is supple. Pupils reactive. Nostrils clear. Oral cavity is moist. Neck reveals no JVD, carotid bruits, or thyromegaly. CHEST EXAMINATION: Trachea is central. Symmetrical expansion. Lung sewell clear to auscultation and percussion. CARDIAC: Normal S1, S2 with no gallops. No murmurs ABDOMEN: Soft. Bowel sounds normal. No organomegaly. No abdominal bruits. Extremities: 1+ edema. No clubbing or cyanosis Neurologically awake, alert, oriented x1 with well-coordinated movements. No focal deficits noted Skin: No rash or skin lesions. Psychiatric: Coperative. Musculoskeletal: No joint swelling or deformity. Normal range of motion. Results CBC & Chem 7: 03/17/21 04:35 03/17/21 04:35 Labs: Abnormal Lab Results - Last 24 Hours (Table) 03/16/21 03/16/21 03/16/21 Range/Units 17:47 17:47 18:38 RBC (3.80-5.40) m/uL Hgb (11.4-16.0) gm/dL Hct (34.0-46.0) % Plt Count 141 L (150-450) k/uL D-Dimer 0.70 H (<0.60) mg/L FEU Potassium (3.5-5.1) mmol/L Urine Ketones 2+ H (Negative) 03/17/21 03/17/21 Range/Units 04:35 04:35 RBC 3.62 L (3.80-5.40) m/uL Hgb 10.6 L (11.4-16.0) gm/dL Hct 33.4 L (34.0-46.0) % Plt Count (150-450) k/uL D-Dimer (<0.60) mg/L FEU Potassium 3.1 L (3.5-5.1) mmol/L Urine Ketones (Negative) Thrombosis Risk Factor Assmnt - DVT/VTE Prophylaxis DVT/VTE Prophylaxis: Pharmacologic Prophylaxis ordered - Choose All That Apply Each Factor Represents 1 point: Obesity (BMI >25) Each Risk Factor Represents 3 Points: Age 75 years or older Thrombosis Risk Factor Assessment Total Risk Factor Score: 4 Thrombosis Risk Factor Assessment Level: Moderate Risk Assessment and Plan Assessment: Auditory hallucinations Schizophrenia Hypertension Hypothyroidism History of cervical cancer and breast cancer Anxiety Previous history of smoking Obesity BMI 35.5 DVT prophylaxis with heparin subcu Plan: Patient is being continued on clozapine and Abilify as per psychiatry recommendations. Continue with levothyroxine and her home medications and follow-up closely. Family at bedside. Discussed with her family at bedside in detail. Time with Patient: Greater than 30
[2021-03-18] MEDS: HEPARIN SODIUM,PORCINE/PF 5,000 UNIT/0.5 ML SYRINGE SQ SCH ×3 (00:17→17:17)
[2021-03-18] MEDS: LEVOTHYROXINE 112 MCG TAB PO SCH (05:37)
[2021-03-18] MEDS: RIVASTIGMINE 1.5 MG PO SCH ×2 (09:29→17:19)
[2021-03-18] MEDS: METOPROLOL SUCCINATE (ER) 25 MG TAB.ER.24H PO SCH (09:30)
[2021-03-18] MEDS: ARIPiprazole 2 MG TAB PO SCH (09:31)
[2021-03-18] MEDS: polyethylene glycoL 3350 17 GM POWD.PACK PO SCH (09:32)
--- NOTE | 2021-03-18 12:56 | P.DS ---
Providers Date of admission: 03/16/21 21:17 Expected date of discharge: 03/18/21 Attending physician: Ciaran Centeno Consults: 03/16/21 21:16 Consult Physician Urgent Consulting Provider: Charlie Torres Consult Reason/Comments: auditory hallucinations, hx schizophrenia Do you want consulting provider notified?: Already Contacted Primary care physician: Anthony Garcia Amador [facility] Course: Final diagnosis Auditory hallucinations Schizophrenia Hypertension Hypothyroidism History of cervical cancer and breast cancer Anxiety Previous history of smoking Obesity BMI 35.5 DVT prophylaxis Full code Discharge disposition Patient is being discharged in a stable condition with guarded prognosis to [facility] for continued PT/OT therapy. Patient will follow-up with Dr. Yi in the outpatient setting upon discharge. Patient to follow[facility] with [facility] . Total time taken is greater than 35 minutes. Hospital course Patient is a 81-year-old female with a known history of cervical cancer, memory impairment, hypothyroidism, history of breast cancer status post surgery and anxiety and previous history of smoking was sent from [facility] where she is independent, due to complaints of auditory hallucinations. Patient states that she is hearing voices. Otherwise patient is a poor historian. Patient also felt very weak unable to get out of bed. Patient had urinary incontinence. Patient does have history of schizophrenia and has been hearing voices in her head which are louder than normal. Patient also developed bilateral lower extr emity edema. Patient has been forgetful. No complaints of chest pain. Patient did have mild shortness of breath. No fever no chills. No nausea vomiting abdominal pain or diarrhea. Denied any recent illnesses. Venous duplex is negative for DVT in both legs. Chest x-ray showed no active cardiopulmonary disease. Normal heart. EKG showed normal sinus rhythm Laboratory data showed sodium 141 potassium 3.7 chloride 106 bicarb is 23 BUN 11 creatinine 0.57 D-dimer 0.7 Blood pressure on admission was elevated at 176/98 pulse 97 respiration 18 and pulse ox 91% on room air. Troponin x3 - proBNP 167 Urinalysis is negative for infection. 03/18/2021 Patient is seen and evaluated and follow-up with no acute overnight issues noted. Patient had potassium replacement and repeat potassium today is 3.9. Was seen and evaluated by psychiatry recommending continuing current medications and close outpatient follow-up with [facility]. Patient is going to [facility] for continued PT/OT therapy. Patient to continue with vegetarian diet. Currently no reports of chest pain, shortness of breath, or palpitations. Patient is afebrile. No reports of nausea or vomiting and patie nt is tolerating diet. Patient will be going to [facility] on the [facility] today . Guarded prognosis. On exam vital signs are stable. Cardio S1, S2 are muffled. Respiratory system shows diminished breath sounds at the bases with no wheezing or rhonchi noted. Abdomen is soft and nontender. Nervous system shows diffuse weakness. Please refer to medication reconciliation sheet for a list of medications. Patient Condition at Discharge: Stable Plan - Discharge Summary Discharge Rx Participant: No New Discharge Prescriptions: Continue cloZAPine [Clozaril] 300 mg PO HS Levothyroxine Sodium [Synthroid] 112 mcg PO DAILY Meclizine [Antivert] 25 mg PO BID PRN PRN Reason: DIZZINESS Lovastatin [Mevacor] 20 mg PO HS ARIPiprazole [Abilify] 2 mg PO DAILY Vitamin E (Dl,Tocopheryl Acet) [Vitamin E (400 Iu = 180 mg)] 400 unit PO DAILY@1200 Cholecalciferol [Vitamin D3 (10 Mcg = 400 Iu)] 20 mcg PO DAILY@1200 polyethylene glycoL 3350 [Miralax] 17 gm PO DAILY Letrozole 2.5 mg PO HS Ascorbic Acid [Vitamin C] 1,000 mg PO DAILY@1200 rOPINIRole HCL [Requip] 0.25 mg PO W/SUPPER Tolterodine ER [Detrol LA] 4 mg PO W/SUPPER Pantoprazole Sodium [Protonix] 40 mg PO DAILY Multivitamins, Thera [Multivitamin (formulary)] 1 tab PO DAILY Metoprolol Succinate (ER) [Toprol XL] 25 mg PO DAILY Fluticasone Nasal [place] [Flonase Nasal [place]] 1 spray EA NOSTRIL HS Calcium Carbonate [Calcium] 600 mg PO DAILY@1200 Rivastigmine Tartrate [Rivastigmine] 1.5 mg PO BID Discharge Medication List ARIPiprazole [Abilify] 2 mg PO DAILY 09/28/16 [History] Levothyroxine Sodium [Synthroid] 112 mcg PO DAILY 09/28/16 [History] Lovastatin [Mevacor] 20 mg PO HS 09/28/16 [History] Meclizine [Antivert] 25 mg PO BID PRN 09/28/16 [History] cloZAPine [Clozaril] 300 mg PO HS 09/28/16 [History] Ascorbic Acid [Vitamin C] 1,000 mg PO DAILY@1200 03/16/21 [History] Calcium Carbonate [Calcium] 600 mg PO DAILY@1200 03/16/21 [History] Cholecalciferol [Vitamin D3 (10 Mcg = 400 Iu)] 20 mcg PO DAILY@1200 03/16/21 [History] Fluticasone Nasal [place] [Flonase Nasal [place]] 1 spray EA NOSTRIL HS 03/16/21 [History] Letrozole 2.5 mg PO HS 03/16/21 [History] Metoprolol Succinate (ER) [Toprol XL] 25 mg PO DAILY 03/16/21 [History] Multivitamins, Thera [Multivitamin (formulary)] 1 tab PO DAILY 03/16/21 [History] Pantoprazole Sodium [Protonix] 40 mg PO DAILY 03/16/21 [History] Rivastigmine Tartrate [Rivastigmine] 1.5 mg PO BID 03/16/21 [History] Tolterodine ER [Detrol LA] 4 mg PO W/SUPPER 03/16/21 [History] Vitamin E (Dl,Tocopheryl Acet) [Vitamin E (400 Iu = 180 mg)] 400 unit PO DAILY@119903/16/21 [History] polyethylene glycoL 3350 [Miralax] 17 gm PO DAILY 03/16/21 [History] rOPINIRole HCL [Requip] 0.25 mg PO W/SUPPER 03/16/21 [History] Follow up Appointment(s)/Referral(s): Lino Yi MD [STAFF PHYSICIAN] - 1-2 Days [facility], [NON-STAFF] - 1-2 Days Anthony English MD [Primary Care Provider] - 1-2 days Ambulatory/Diagnostic Orders: Basic Metabolic Panel [LAB.AMB] Time Frame: 3 Days, Location: None Selected Activity/Diet/Wound Care/Special Instructions: Patient is going to [facility] activity as tolerated Continue current medications Continue vegetarian diet patient to follow-up outpatient with primary care provider and [facility] Repeat labs in 2-3 days to monitor electrolytes Discharge Disposition: TRANSFER TO SNF/ECF
[2021-03-18] MEDS: OXYBUTYNIN XL 5 MG TAB.ER.24 PO SCH (17:18)
[2021-03-18] MEDS: cloZAPine 100 MG TAB PO SCH (20:13)
[2021-03-18] MEDS: LETROZOLE 2.5 MG TAB PO SCH (20:13)
[2021-03-18] MEDS: ATORVASTATIN 10 MG TAB PO SCH (20:13)
[2021-03-19] MEDS: HEPARIN SODIUM,PORCINE/PF 5,000 UNIT/0.5 ML SYRINGE SQ SCH ×3 (00:46→17:53)
[2021-03-19] MEDS: LEVOTHYROXINE 112 MCG TAB PO SCH (05:47)
[2021-03-19] MEDS: METOPROLOL SUCCINATE (ER) 25 MG TAB.ER.24H PO SCH (08:15)
[2021-03-19] MEDS: polyethylene glycoL 3350 17 GM POWD.PACK PO SCH (08:15)
[2021-03-19] MEDS: ARIPiprazole 2 MG TAB PO SCH (08:16)
[2021-03-19] MEDS: RIVASTIGMINE 1.5 MG PO SCH (08:16)
[2021-03-19 08:51] LABS: Clozapine (Clozaril) 676 ng/mL (200-700); Norclozapine 292 ng/mL (200-700)
[2021-03-19 15:32] VITALS: BP 129/81; PULSE 95; RESP 16; TEMP 96.5
--- NOTE | 2021-03-19 15:53 | P.PN ---
Subjective Progress Note Date: 03/19/21 Patient is a 81-year-old female with a known history of cervical cancer, memory impairment, hypothyroidism, history of breast cancer status post surgery and anxiety and previous history of smoking was sent from [facility] where she is independent, due to complaints of auditory hallucinations. Patient states that she is hearing voices. Otherwise patient is a poor historian. Patient also felt very weak unable to get out of bed. Patient had urinary incontinence. Patient does have history of schizophrenia and has been hearing voices in her head which are louder than normal. Patient also developed bilateral lower extremity edema. Patient has been forgetful. No complaints of chest pain. Gregory presley did have mild shortness of breath. No fever no chills. No nausea vomiting abdominal pain or diarrhea. Denied any recent illnesses. Venous duplex is negative for DVT in both legs. Chest x-ray showed no active cardiopulmonary disease. Normal heart. EKG showed normal sinus rhythm Laboratory data showed sodium 141 potassium 3.7 chloride 106 bicarb is 23 BUN 11 creatinine 0.57 D-dimer 0.7 Blood pressure on admission was elevated at 176/98 pulse 97 respiration 18 and pulse ox 91% on room air. Troponin x3 - proBNP 167 Urinalysis is negative for infection. 03/18/2021 Patient is seen and evaluated and follow-up with no acute overnight issues noted. Patient had potassium replacement and repeat potassium today is 3.9. Was seen and evaluated by psychiatry recommending continuing current medications and close outpatient follow-up with [facility]. Patient is going to [facility] for continued PT/OT therapy. Patient to continue with vegetarian diet. Currently no reports of chest pain, shortness of breath, or palpitations. Patient is afebrile. No reports of nausea or vomiting and patient is tolerating diet. Patient will be going to [facility] today . Guarded prognosis. 03/19/2021 Patient is seen and evaluated in follow-up this morning currently sitting up in the chair after working with physical therapy. Patient continues to state she is weak and was up multiple times requiring assistance to the bedside commode for urination. Patient denies any difficulty in urination or pain with urination. Patient was seen and evaluated by psychiatry and will continue to follow as needed. Social work and case management also following and working on a safe discharge plan as she is unable to return home and care for herself she continues to be weak and is at an increased risk for falls. Review of systems: Constitutional: Reports generalized fatigue, no reports of fever, or chills Cardiovascular: No reports of chest pain or palpitations Respiratory: No reports of shortness of breath or cough GI: No reports of nausea, vomiting, or diarrhea : No reports of dysuria or retention, reports increased urination and frequency Neurovascular: rePorts generalized weakness All medications have been reviewed Active Medications Aripiprazole (Aripiprazole 2 Mg Tab) 2 mg PO DAILY [facility] Last Admin: 03/19/21 08:16 Dose: 2 mg Documented by: Atorvastatin Calcium (Atorvastatin 10 Mg Tab) 10 mg PO [facility] Last Admin: 03/18/21 20:13 Dose: 10 mg Documented by: Clozapine (Clozapine 100 Mg Tab) 300 mg PO [facility] Stop: 03/24/21 23:00 Last Admin: 03/18/21 20:13 Dose: 300 mg Documented by: Heparin Sodium (Porcine) (Heparin Sodium,Porcine/Pf 5,000 Unit/0.5 Ml Syringe) 5,000 unit SQ Q8HR [facility] Last Admin: 03/19/21 08:15 Dose: 5,000 unit Documented by: Letrozole (Letrozole 2.5 Mg Tab) 2.5 mg PO [facility] Last Admin: 03/18/21 20:13 Dose: Not Given Documented by: Levothyroxine Sodium (Levothyroxine 112 Mcg Tab) 112 mcg PO DAILY@0630 [facility] Last Admin: 03/19/21 05:47 Dose: 112 mcg Documented by: Metoprolol Succinate (Metoprolol Succinate (Er) 25 Mg Tab.Er.24h) 25 mg PO DAILY [facility] Last Admin: 03/19/21 08:15 Dose: 25 mg Documented by: Miscellaneous Information (Potassium Replacement Protocol 1 Each Misc) 1 each MISCELLANE DAILY PRN; Protocol PRN Reason: Per Protocol Naloxone HCl (Naloxone 0.4 Mg/Ml 1 Ml Vial) 0.2 mg IV Q2M PRN PRN Reason: Opioid Reversal Rivastigmine 1.5 Mg (Capsule) 1.5 mg PO BID [facility] Last Admin: 03/19/21 08:16 Dose: 1.5 mg Documented by: Oxybutynin Chloride (Oxybutynin Xl 5 Mg Tab.Er.24) 5 mg PO W/SUPPER [facility] Last Admin: 03/18/21 17:18 Dose: 5 mg Documented by: Polyethylene Glycol (Polyethylene Glycol 3350 17 Gm Powd.Pack) 17 gm PO DAILY [facility] Last Admin: 03/19/21 08:15 Dose: 17 gm Documented by: Ropinirole HCl (Ropinirole Hcl 0.25 Mg Tab) 0.25 mg PO W/SUPPER [facility] Last Admin: 03/18/21 17:18 Dose: 0.25 mg Documented by: Objective - Vital Signs Vital signs: Vital Signs Temp 98.4 F 03/19/21 07:00 Pulse 105 H 03/19/21 08:00 Resp 18 03/19/21 14:00 BP 175/92 03/19/21 07:00 Pulse Ox 97 03/19/21 07:00 Intake & Output 03/18/21 03/19/21 03/19/21 18:59 06:59 18:59 Intake Total 120 600 400 Balance 120 600 400 Intake: Oral 120 600 400 Other: Voiding Method Bedside Commode Bedside Commode Bedside Commode Diaper Diaper Diaper Incontinent Incontinent # Voids 1 7 1 - Exam Patient is sitting up in the chair comfortably, no acute distress, awake alert and oriented x1.. HEENT: Normocephalic. Neck is supple. Pupils reactive. Nostrils clear. Oral cavity is moist. Neck reveals no JVD, carotid bruits, or thyromegaly. CHEST EXAMINATION: Trachea is central. Symmetrical expansion. Lung sewell clear to auscultation and percussion. CARDIAC: Normal S1, S2 with no gallops. No murmurs ABDOMEN: Soft. Bowel sounds normal. No organomegaly. No abdominal bruits. Extremities: 1+ edema. No clubbing or cyanosis Neurologically awake, alert, oriented x1 with well-coordinated movements. No focal deficits noted, diffusely weak Skin: No rash or skin lesions. Psychiatric: Cooperative. Musculoskeletal: No joint swelling or deformity. Normal range of motion. - Labs CBC & Chem 7: 03/17/21 04:35 03/18/21 06:02 Assessment and Plan Assessment: Auditory hallucinations Schizophrenia Hypertension Hypothyroidism History of cervical cancer and breast cancer Anxiety Previous history of smoking Obesity BMI 35.5 DVT prophylaxis Full code Plan: Recommend continue with current medications. Case management and social work following closely working on safe discharge plan as she is unable to return home by herself she continues to be weak requiring assistance along with mental health issues. Patient is being closely monitored and working with physical therapy. Patient had urinalysis done on admission which showed 2+ ketones otherwise negative and continues to report frequency but no reports of dysuria noted. Patient states she was up at least 4-5 times throughout the night and unable to sleep secondary to frequent urination. Will repeat labs today. Will repeat labs in continue to monitor closely. Patient will require more than a two night hospitalization stay given her weakness and current unsafe discharge plan. Social work working on a safe discharge plan with possibility of ECF placement. Multiple complex medical issues, prognosis is guarded. Further recommendations to follow on the clinical course of the patient.
[2021-03-19] MEDS: OXYBUTYNIN XL 5 MG TAB.ER.24 PO SCH (17:51)
== END 2021-03-19 18:40 | DRG 885 ==
LOC: EC 16:37 → EEVIPCON 16:37 → 6NMEDSUR 21:17 → OBSVTOIN 03-19 10:59
PROVIDERS: ADMIT Hospitalist; ATTEND Hospitalist
DX: F20.9 Schizophrenia, unspecified (principal); E03.9 Hypothyroidism, unspecified; E66.9 Obesity, unspecified; F41.9 Anxiety disorder, unspecified; G40.909 Epilepsy, unspecified, not intractable, without status epilepticus; I10 Essential (primary) hypertension; E87.6 Hypokalemia; R32 Unspecified urinary incontinence; Z68.35 Body mass index [BMI] 35.0-35.9, adult; Z79.890 Hormone replacement therapy; Z79.899 Other long term (current) drug therapy; Z85.3 Personal history of malignant neoplasm of breast; Z85.41 Personal history of malignant neoplasm of cervix uteri; Z87.891 Personal history of nicotine dependence; Z91.5 Personal history of self-harm; Z98.890 Other specified postprocedural states; Z91.81 History of falling; Z88.1 Allergy status to other antibiotic agents; Z88.0 Allergy status to penicillin
CPT/HCPCS: 36415; 71046; 80048; 80053; 80159; 81003; 83880; 84132; 84443; 84484; 85025; 85379; 85610; 93005; 93970; 99285

== ENCOUNTER 2021-03-31 18:15 | Inpatient (IN) | payer MEDICARE, BC ==
--- NOTE | 2021-03-31 19:06 | ED ---
General Adult HPI - General Chief complaint: Psychiatric Symptoms Stated complaint: Mental Health Time Seen by Provider: 03/31/21 18:20 Source: patient, RN notes reviewed, old records reviewed Mode of arrival: wheelchair Limitations: no limitations - History of Present Illness Initial comments: This is an 81-year-old female presents emergency Department with family family states that she has not been taking her medications for her mental health for about a week. Patient's family states she was still not taking it because she believed God. She didn't need them. Patient also is having increasing hearing voices though they never tell her to do anything violent they are telling her not to take her medications as well. She is not suicidal or homicidal. Patient was recently [facility] the jail and was brought home earlier today and and while she was here she was not doing anything rehabilitation that they had wanted her to. When patient comes home she most of the time refuses to get up and move around and the family thinks that she needs to be back on her medications so she can start walking around the house and taking care of herself like she did recently. Patient denies any chest pain palpitations difficulty breathing or shortness of breath. Patient denies abdominal pain patient denies nausea vomiting diarrhea. Patient denies any recent fever chills or cough. Patient denies any injury or trauma. - Related Data Home Medications Medication Instructions Recorded Confirmed ARIPiprazole [Abilify] 2 mg PO DAILY 09/28/16 03/16/21 Levothyroxine Sodium [Synthroid] 112 mcg PO DAILY 09/28/16 03/16/21 Lovastatin [Mevacor] 20 mg PO HS 09/28/16 03/16/21 Meclizine [Antivert] 25 mg PO BID PRN 09/28/16 03/16/21 cloZAPine [Clozaril] 300 mg PO HS 09/28/16 03/16/21 Ascorbic Acid [Vitamin C] 1,000 mg PO DAILY@119903/16/21 03/16/21 Calcium Carbonate [Calcium] 600 mg PO DAILY@119903/16/21 03/16/21 Cholecalciferol [Vitamin D3 (10 20 mcg PO DAILY@119903/16/21 03/16/21 Mcg = 400 Iu)] Fluticasone Nasal [place] [Flonase 1 spray EA NOSTRIL 03/16/21 03/16/21 Nasal [place]] Letrozole 2.5 mg PO HS 03/16/21 03/16/21 Metoprolol Succinate (ER) [Toprol 25 mg PO DAILY 03/16/21 03/16/21 XL] Multivitamins, Thera [Multivitamin 1 tab PO DAILY 03/16/21 03/16/21 (formulary)] Pantoprazole Sodium [Protonix] 40 mg PO DAILY 03/16/21 03/16/21 Rivastigmine Tartrate 1.5 mg PO BID 03/16/21 03/16/21 [Rivastigmine] Tolterodine ER [Detrol LA] 4 mg PO W/SUPPER 03/16/21 03/16/21 Vitamin E (Dl,Tocopheryl Acet) 400 unit PO DAILY@1200 03/16/21 03/16/21 [Vitamin E (400 Iu = 180 mg)] polyethylene glycoL 3350 [Miralax] 17 gm PO DAILY 03/16/21 03/16/21 rOPINIRole HCL [Requip] 0.25 mg PO W/SUPPER 03/16/21 03/16/21 Allergies Allergy/AdvReac Type Severity Reaction Status Date / Time amoxicillin [From Augmentin] AdvReac Rash/Hives Verified 03/31/21 18:19 capsaicin [From Zostrix] AdvReac Rash/Hives Verified 03/31/21 18:19 clavulanic acid AdvReac Rash/Hives Verified 03/31/21 18:19 [From Augmentin] Review of Systems ROS Statement: Those systems with pertinent positive or pertinent negative responses have been documented in the HPI. ROS Other: All systems not noted in ROS Statement are negative. Past Medical History Past Medical History: Cancer, Memory Impairment, Seizure Disorder, Thyroid Disorder Additional Past Medical History / Comment(s): hx. cervical cancer, dizzy spells & falling, breast ca History of Any Multi-Drug Resistant Organisms: None Reported Past Surgical History: Breast Surgery Additional Past Surgical History / Comment(s): surg for breast abscess x2, lumpectomy left Past Anesthesia/Blood Transfusion Reactions: No Reported Reaction Past Psychological History: Anxiety Smoking Status: Former smoker Past Alcohol Use History: None Reported Past Drug Use History: None Reported - Past Family History Mother Family Medical History: No Reported History General Exam - General Exam Comments Initial Comments: GENERAL: Patient is well-developed and well-nourished. Patient is nontoxic and well- hydrated and is in no acute distress. ENT: Neck is soft and supple. No significant lymphadenopathy is noted. Oropharynx is clear. Moist mucous membranes. Neck has full range of motion without eliciting any pain. EYES: The sclera were anicteric and conjunctiva were pink and moist. Extraocular movements were intact and pupils were equal round and reactive to light. Eyelids were unremarkable. PULMONARY: Unlabored respirations. Good breath sounds bilaterally. No audible rales rhonchi or wheezing was noted. CARDIOVASCULAR: There is a regular rate and rhythm without any murmurs gallops or rubs. ABDOMEN: Soft and nontender with normal bowel sounds. SKIN: Skin is clear with no lesions or rashes and otherwise unremarkable. NEUROLOGIC: Patient is alert and oriented x3. Cranial nerves II through XII are grossly intact. Motor and sensory are also intact. Normal speech, volume and content. Symmetrical smile. MUSCULOSKELETAL: Normal extremities with adequate strength and full range of motion. LYMPHATICS: No significant lymphadenopathy is noted PSYCHIATRIC: Normal psychiatric evaluation. Patient admits that she stopped taking her medications. Patient admits that she's having quite a few voices. Patient does agree that she is not suicidal or homicidal. Patient cannot explain why she does not make an effort to take care of herself or walk around. Limitations: no limitations Course Vital Signs 03/31/21 18:20 Temperature 98.0 F Pulse Rate 104 H Respiratory 20 Rate Blood Pressure 147/74 O2 Sat by Pulse 99 Oximetry Medical Decision Making - Medical Decision Making EKG shows normal sinus rhythm at 100 bpm SC interval 242 QRS is 86 QT interval 362 QTC is 466. No ST segment elevation. Chest x-ray shows no acute abnormality. I spoke with Dr. lopez he agreed to admit the patient to the patient consulted psychiatry Disposition Clinical Impression: Psychosis, Auditory hallucinations, Noncompliance with medication regimen Disposition: ADMITTED IP TO THIS HOSP Referrals: Anthony English MD [Primary Care Provider] - 1-2 days Time of Disposition: 20:27
--- NOTE | 2021-03-31 19:36 | XR ---
EXAMINATION TYPE: XR chest 2V DATE OF EXAM: 03/31/2021 COMPARISON: 03/16/2021 HISTORY: Short of breath altered mental status TECHNIQUE: 2 views FINDINGS: Heart is normal. Lungs are clear of infiltrate. There is no heart failure. There are no hil ar masses. Bony thorax is intact. Thoracic aorta is atheromatous. Costophrenic angles are clear. IMPRESSION: No active cardiopulmonary disease. No change.
[2021-03-31] MEDS ORDERED: SODIUM CHLORIDE 0.9% 1,000 ML IV ONE (20:27)
[2021-03-31 20:28] LABS: Basophils % (A) 0 %; Eosinophils % (A) 1 %; HCT 31.9 % (34.0-46.0); HGB 11.3 gm/dL (11.4-16.0); Lymphocytes # (A) 1.4 k/uL (1.0-4.8); Lymphocytes % (A) 28 %; MCHC 35.4 g/dL (31.0-37.0); MCV 87.7 fL (80.0-100.0); Mean Platelet Volume 8.8; Monocytes # (A) 0.3 k/uL (0-1.0); Monocytes % (A) 6 %; Neutrophils # (A) 3.2 k/uL (1.3-7.7); Neutrophils % (A) 64 %; Platelet Count 174 k/uL (150-450); RBC 3.63 m/uL (3.80-5.40); RDW 13.4 % (11.5-15.5)
[2021-03-31 20:32] LABS: Albumin 3.9 g/dL (3.5-5.0); Calcium 9.5 mg/dL (8.4-10.2); Potassium 3.6 mmol/L (3.5-5.1); Total Bilirubin 0.6 mg/dL (0.2-1.3); Total Protein 6.3 g/dL (6.3-8.2)
[2021-04-01 00:38] LABS: Appearance,Urine Cloudy (Clear); Bacteria,Urine Occasional /hpf; Bilirubin,Urine Negative (Negative); Blood,Urine Negative (Negative); Color,Urine Yellow; Glucose,Urine (UA) Negative (Negative); Ketones,Urine 3+ (Negative); Leukocyte Esterase,Urine Large (Negative); Nitrite,Urine Negative (Negative); PH, Urine 5.5 (5.0-8.0); Protein,Urine Trace (Negative); RBC,Urine 4 /hpf (0-5); Specific Gravity,Urine 1.013 (1.001-1.035); Squamous Epithelial Cell,Urine 1 /hpf (0-4); Urobilinogen,Urine <2.0 mg/dL (<2.0); WBC,Urine 133 /hpf (0-5)
[2021-04-01] MEDS ORDERED: FLUTICASONE 50MCG/SPRAY NASAL 16GM EA NOSTRIL PRN (13:59)
--- NOTE | 2021-04-01 14:06 | P.CN ---
Psychiatric Consult - . Consult date: 04/01/21 Consult:: 04/01/21 14:01 IDENTIFYING DATA: This patient is a , retired, 81-year-old female with significant history of schizophrenia who presents to the hospital with psychosis and noncompliance with her medications. HISTORY OF PRESENT ILLNESS: The patient presented to the hospital on 03/31/2021, brought to the emergency department by her family due to nonadherence with her mental health medications for 1 week and subsequent worsening of her psychiatric symptoms. The patient was recently in this hospital and was evaluated on 03/17/2021 by psychiatry for the auditory hallucinations. At that time, the patient was continued on her psychotropic medications) and Abilify. She was discharged with the recommendation to follow-up with [facility]. Present at the patient's bedside as the patient's son and [id number] Payal. The patient is agreeable to having her family present in the room during the psychiatric interview and to provide collateral information. The patient's family report that the patient has been dealing with mental health issues ever since 1957. They report that the patient has had intermittent episodes of worsening of her psychiatric disorder. In 1997, the patient's second causing her an exacerbation of her mental health symptoms. In 1998, the patient was placed on Clozaril and displayed a significant improvement in symptoms and was well controlled for the past 20 years. The patient's family reports that between March 01 and March 14, the patient stopped taking her medications. They report that initially, the patient was tapered off some of her Clozaril due to elevated clozapine levels. At first, the patient did well but then had a sudden worsening of symptoms. The patient began expressing auditory hallucinations which she believes were from God. She reports that these auditory hallucinations have told her that she was cured and that she no longer needed take any medications. Furthermore, she believes that her hands have caused her to do bad things and that she has a desire to cut off her hands. The patient also endorses visual hallucinations that she describes as quite disturbances. The patient displays significant symptoms of paranoia, believing that staff and others, especially at [facility] were attempting to hurt her and poison her. In regards to mood symptoms, the patient is not endorsing any suicidal or homicidal ideation, intention, and/or plan. She is not reporting any manic symptoms. She denies any grandiosity, pressured speech, racing thoughts, or increased goal-directed behavior. She denies any periods of excessive energy. The patient does endorse some depressive symptoms in the form of excessive guilt and suicidal thoughts but is currently denying any anhedonia, appetite loss, low motivation, low energy, or decreased ability to address her ADLs. She attributes her suicidal ideation to the voices that she has been hearing. PAST PSYCHIATRIC HISTORY: Patient has a history of schizophrenia. The patient is currently on a regimen of clozapine 300 mg at bedtime and Abilify 2 mg in the morning. Patient has not required any psychiatric hospitalization in over 20 years. She is currently open with [facility] and sees Terrie Saldivar. The patient reports one prior attempt at suicide in the past. PAST MEDICAL HISTORY: Past Medical History: Cancer, Memory Impairment, Seizure Disorder, Thyroid Disorder Additional Past Medical History / Comment(s): hx. cervical cancer, dizzy spells & falling, breast ca History of Any Multi-Drug Resistant Organisms: None Reported Past Surgical History: Breast Surgery Additional Past Surgical History / Comment(s): surg for breast abscess x2, lumpectomy left Past Anesthesia/Blood Transfusion Reactions: No Reported Reaction Past Psychological History: Anxiety Smoking Status: Former smoker Past Alcohol Use History: None Reported Past Drug Use History: None Reported ALLERGIES: amoxicillin, capsaicin, clavulanic acid. CHEMICAL DEPENDENCY HISTORY: Patient denies any tobacco, marijuana, alcohol, or illicit drug use. FAMILY PSYCHIATRIC/SUBSTANCE USE HISTORY: Patient does not report any significant family history of mental illness. SOCIAL HISTORY: Patient was born and raised in [place], [place]. The patient is currently . She was twice before, with her first marriage lasting 11 years in her second marriage lasting 20 years. She has 3 children and 5 grandchildren. She previously worked as a stenographer. She currently lives independently in [place] with her family close by. Her son is her guardian. MENTAL STATUS EXAM: General Appearance: Patient appears to be stated age is alert, pleasant, and cooperative. Patient appears to have fair hygiene and grooming wearing hospital gown with fair eye contact. Behavior: Patient is seated upright in her chair with normal psychomotor activity and good eye contact. Speech: Patient's speech is fluent and nonpressured. Spontaneous, with normal rate, tone, and volume. Mood/Affect: Patient reports their mood is "overwhelmed", affect is congruent and tearful at times Suicidality/Homicidality: Patient endorses suicidal ideation but no homicidal ideation, intention, and/or plan. Perceptions: Patient endorses both auditory and visual hallucinations. Though content/process: Delusional thought content is evident. The patient is religiously preoccupied. She also has bizarre delusions that her hands have committed crimes in that she needs to cut them off. Memory and concentration: AOX3, grossly intact for the purposes of this session. Can spell "WORLD" backwards Judgment and insight: Poor Vital Signs Temp 98.1 F 04/01/21 12:34 Pulse 102 H 04/01/21 12:34 Resp 17 04/01/21 12:34 BP 148/73 04/01/21 12:34 Pulse Ox 95 04/01/21 12:34 Intake & Output 03/31/21 04/01/21 04/01/21 18:59 06:59 18:59 Intake Total 1100 Balance 1100 Weight 73.482 kg 73.482 kg Intake: Intake, IV Titration 800 Amount Sodium Chloride 0.9% 1, 800 000 ml @ 75 mls/hr IV . [id number] ONE Rx#:[id number] Oral 300 Other: Voiding Method Bedside Commode Bedside Commode Diaper Diaper # Voids 1 Laboratory Results - Last 24 Hours 03/31/21 03/31/21 03/31/21 20:08 20:08 20:08 WBC 5.0 RBC 3.63 L Hgb 11.3 L Hct 31.9 L MCV 87.7 MCH 31.0 MCHC 35.4 RDW 13.4 Plt Count 174 MPV 8.8 Neutrophils % 64 Lymphocytes % 28 Monocytes % 6 Eosinophils % 1 Basophils % 0 Neutrophils # 3.2 Lymphocytes # 1.4 Monocytes # 0.3 Eosinophils # 0.0 Basophils # 0.0 Sodium 138 Potassium 3.6 Chloride 103 Carbon Dioxide 20 L Anion Gap 15 BUN 20 H Creatinine 0.86 Est GFR (CKD-EPI)AfAm 73 Est GFR (CKD-EPI)NonAf 64 Glucose 72 L Calcium 9.5 Total Bilirubin 0.6 AST 36 ALT 26 Alkaline Phosphatase 106 NT-Pro-B Natriuret Pep 204 Total Protein 6.3 Albumin 3.9 Urine Color Urine Appearance Urine pH Ur Specific [place] Urine Protein Urine Glucose (UA) Urine Ketones Urine Blood Urine Nitrite Urine Bilirubin Urine Urobilinogen Ur Leukocyte Esterase Urine RBC Urine WBC Ur Squamous Epith Cells Urine Bacteria Coronavirus (PCR) 03/31/21 04/01/21 20:59 00:12 WBC RBC Hgb Hct MCV MCH MCHC RDW Plt Count MPV Neutrophils % Lymphocytes % Monocytes % Eosinophils % Basophils % Neutrophils # Lymphocytes # Monocytes # Eosinophils # Basophils # Sodium Potassium Chloride Carbon Dioxide Anion Gap BUN Creatinine Est GFR (CKD-EPI)AfAm Est GFR (CKD-EPI)NonAf Glucose Calcium Total Bilirubin AST ALT Alkaline Phosphatase NT-Pro-B Natriuret Pep Total Protein Albumin Urine Color Yellow Urine Appearance Cloudy H Urine pH 5.5 Ur Specific [place] 1.013 Urine Protein Trace H Urine Glucose (UA) Negative Urine Ketones 3+ H Urine Blood Negative Urine Nitrite Negative Urine Bilirubin Negative Urine Urobilinogen <2.0 Ur Leukocyte Esterase Large H Urine RBC 4 Urine WBC 133 H Ur Squamous Epith Cells 1 Urine Bacteria Occasional H Coronavirus (PCR) Not Detected IMPRESSIONS: Schizophrenia PLAN: -At this time patient DOES meet criteria for inpatient geriatric psychiatric admission. At this time, the patient is endorsing suicidal ideation that is ego dystonic and secondary to her hallucinations and paranoid symptoms. Furthermore, the patient is endorsing denominational preoccupation and religiously themed delusions that are discouraging her from taking her medications and causing noncompliance. The patient also expresses a desire to cut off her hands. -Delirium precautions recommended with patient including - avoiding use of narcotics and [employer] sedatives, limit anticholinergic medications when possible, frequent re-orientation, minimize use of restraints, open window shades during the day and close them at night -We will order B12, folate, syphilis testing -Recommend your medical management for UTI. -Would recommend the following medication changes/additions: We will restart Clozaril 300 mg at bedtime for psychosis and mood stabilization. Recommend gradual titration of this medication. Consider increase to 325 mg tomorrow night for management of psychosis. We will restart Abilify 2 mg daily for psychosis. -EKG reviewed - QTc 466 ms. NSR. -Clozaril levels from 03/24/2021: Clozapine 413 (WNL), Norclozapine 212 (WNL) -The patient will require much direction and encouragement for medication adherence. She is currently agreeable at this time. This provider discussed with the patient that medicine, treatment, and psychiatric evaluation are part of God's answer to prayers and the patient is agreeable to take medications in this context. -Cannot leave AMA at this time. Patient will need a petition and certification if attempting to leave AMA. -Will continue to follow along. -When medically stable, patient is eligible for transfer to a geriatric psych bed when available. 04/01/21 14:04
--- NOTE | 2021-04-01 17:00 | P.HPIM ---
History of Present Illness This is a pleasant 81 years old female with past medical history of Memory Impairment, Seizure Disorder, hypothyroidism Patient is somewhat poor historian and information were obtained with the help of the son and daughter at bedside. Family states that on March 16 was found in her bed with urine all over the place, she was taken to the hospital and on 03/19 she was discharged to [facility] for subacute rehab however there she was progressively getting more confused, agitated and paranoid thinking that they want to get her out and they doesn't wanted her and they were causing her so she stopped taking medication except vitamins. Yesterday she stopped eating and drinking so finally decided to bring her to the emergency room. Currently patient awake and appropriate but somewhat confused. On admission vitals are stable and patient is afebrile. No leukocytosis and dressed of CBC, BMP, liver enzymes are unremarkable. Urine analysis is suspicious for infection EKG showing normal sinus rhythm at 100 bpm with no significant ST changes Chest x-ray: No acute process. In the emergency room she was started on normal sinus at 75 mL/h. Review of Systems CONSTITUTIONAL: No fever, no malaise, no fatigue. HEENT: No recent visual problems or hearing problems. Denied any sore throat. CARDIOVASCULAR: No orthopnea, PND, no palpitations, no syncope. PULMONARY: No shortness of breath, no cough, no hemoptysis. GASTROINTESTINAL: No diarrhea, no nausea, no vomiting, no abdominal pain. Normoactive bowel sounds. NEUROLOGICAL: No headaches, no weakness, no numbness. HEMATOLOGICAL: Denies any bleeding or petechiae. GENITOURINARY: Denies any burning micturition, frequency, or urgency. MUSCULOSKELETAL/RHEUMATOLOGICAL: Denies any joint pain, swelling, or any muscle pain. ENDOCRINE: Denies any polyuria or polydipsia. Past Medical History Past Medical History: Cancer, Memory Impairment, Seizure Disorder, Thyroid Disorder Additional Past Medical History / Comment(s): hx. cervical cancer, dizzy spells & falling, breast ca History of Any Multi-Drug Resistant Organisms: None Reported Past Surgical History: Breast Surgery Additional Past Surgical History / Comment(s): surg for breast abscess x2, lumpectomy left Past Anesthesia/Blood Transfusion Reactions: No Reported Reaction Past Psychological History: Anxiety, Schizophrenia Additional Psychological History / Comment(s): very confused Smoking Status: Never smoker Past Alcohol Use History: None Reported Past Drug Use History: None Reported - Past Family History Mother Family Medical History: No Reported History Medications and Allergies Home Medications Medication Instructions Recorded Confirmed Type ARIPiprazole [Abilify] 2 mg PO DAILY 09/28/16 03/31/21 History Levothyroxine Sodium [Synthroid] 112 mcg PO DAILY 09/28/16 03/31/21 History Lovastatin [Mevacor] 20 mg PO DAILY 09/28/16 03/31/21 History Meclizine [Antivert] 25 mg PO BID PRN 09/28/16 03/31/21 History cloZAPine [Clozaril] 300 mg PO HS 09/28/16 03/31/21 History Ascorbic Acid [Vitamin C] 1,000 mg PO DAILY 03/16/21 03/31/21 History Calcium Carbonate [Calcium] 600 mg PO DAILY 03/16/21 03/31/21 History Cholecalciferol [Vitamin D3 (10 20 mcg PO DAILY 03/16/21 03/31/21 History Mcg = 400 Iu)] Fluticasone Nasal [place] [Flonase 1 spray EA NOSTRIL HS PRN 03/16/21 03/31/21 History Nasal [place]] Letrozole 2.5 mg PO HS 03/16/21 03/31/21 History Metoprolol Succinate (ER) [Toprol 25 mg PO DAILY 03/16/21 03/31/21 History XL] Multivitamins, Thera [Multivitamin 1 tab PO DAILY 03/16/21 03/31/21 History (formulary)] Pantoprazole Sodium [Protonix] 40 mg PO DAILY 03/16/21 03/31/21 History Rivastigmine Tartrate 1.5 mg PO BID-W/MEALS 03/16/21 03/31/21 History [Rivastigmine] Tolterodine ER [Detrol LA] 4 mg PO HS 03/16/21 03/31/21 History Vitamin E (Dl,Tocopheryl Acet) 400 unit PO DAILY 03/16/21 03/31/21 History [Vitamin E (400 Iu = 180 mg)] polyethylene glycoL 3350 [Miralax] 17 gm PO DAILY 03/16/21 03/31/21 History rOPINIRole HCL [Requip] 0.25 mg PO DAILY 03/16/21 03/31/21 History Allergies Allergy/AdvReac Type Severity Reaction Status Date / Time amoxicillin [From Augmentin] AdvReac Rash/Hives Verified 03/31/21 21:01 capsaicin [From Zostrix] AdvReac Rash/Hives Verified 03/31/21 21:01 clavulanic acid AdvReac Rash/Hives Verified 03/31/21 21:01 [From Augmentin] Physical Exam Vitals: Vital Signs Temp Pulse Pulse Resp BP BP Pulse Ox 04/01/21 08:00 98 16 04/01/21 04:55 97.6 F 98 16 138/72 96 03/31/21 22:30 16 03/31/21 22:02 97.3 F L 83 16 136/78 98 03/31/21 18:20 98.0 F 104 H 20 147/74 99 Intake and Output 03/31/21 04/01/21 04/01/21 22:59 06:59 14:59 Intake Total 1100 Balance 1100 Intake: Intake, IV Titration 800 Amount Sodium Chloride 0.9% 1, 800 000 ml @ 75 mls/hr IV . [id number] ONE Rx#:[id number] Oral 300 Other: Voiding Method Bedside Commode Bedside Commode Diaper Diaper # Voids 1 Weight 73.482 kg -GENERAL: The patient is alert and somewhat confused, not in any acute distress. Well developed, well nourished. HEENT: Pupils are round and equally reacting to light. EOMI. No scleral icterus. No conjunctival pallor. Normocephalic, atraumatic. No pharyngeal erythema. No thyromegaly. CARDIOVASCULAR: S1 and S2 present. No murmurs, rubs, or gallops. PULMONARY: Chest is clear to auscultation, no wheezing or crackles. ABDOMEN: Soft, nontender, nondistended, normoactive bowel sounds. No palpable organomegaly. MUSCULOSKELETAL: No joint swelling or deformity. EXTREMITIES: No cyanosis, clubbing, or pedal edema. NEUROLOGICAL: Gross neurological examination did not reveal any focal deficits. SKIN: No rashes. No petechiae Results CBC & Chem 7: 03/31/21 20:08 03/31/21 20:08 Labs: Abnormal Lab Results - Last 24 Hours (Table) 03/31/21 03/31/21 04/01/21 Range/Units 20:08 20:08 00:12 RBC 3.63 L (3.80-5.40) m/uL Hgb 11.3 L (11.4-16.0) gm/dL Hct 31.9 L (34.0-46.0) % Carbon Dioxide 20 L (22-30) mmol/L BUN 20 H (7-17) mg/dL Glucose 72 L (74-99) mg/dL Urine Appearance Cloudy H (Clear) Urine Protein Trace H (Negative) Urine Ketones 3+ H (Negative) Ur Leukocyte Esterase Large H (Negative) Urine WBC 133 H (0-5) /hpf Urine Bacteria Occasional H (None) /hpf Thrombosis Risk Factor Assmnt - Choose All That Apply Any of the Below Risk Factors Present?: Yes Each Factor Represents 1 point: Medical pt on bed rest, Obesity (BMI >25) Other Risk Factors: Yes Each Risk Factor Represents 2 Points: Malignancy Each Risk Factor Represents 3 Points: Age 75 years or older Other congenital or acquired thrombophilia - If yes, enter type in comment: No Thrombosis Risk Factor Assessment Total Risk Factor Score: 7 Thrombosis Risk Factor Assessment Level: High Risk Assessment and Plan Assessment: acute urinary tract infection Metabolic encephalopathy secondary to above Acute psychosis, nonspecified Refusal to take medication History of memory impairment History of seizure disorder Hyperthyroidism Plan: This is a pleasant 81 years old female who presents with psychotic symptoms, and confusion and UTI. Tracts on an follow-up urine culture Psychiatrist to address her illnesses, auditory hallucinations she has an management with psych medication Labs and medication were reviewed.. Continue same treatment. Continue with symptomatic treatment. Resume home medication. Monitor lytes and vitals. DVT and GI prophylaxis. Further recommendationsas per clinical course of the patient DVT prophylaxis: Subcutaneous heparin GI Prophylaxis: Ppi Prognosis is guarded
[2021-04-01] MEDS: OXYBUTYNIN 10 MG TAB.ER.24 PO SCH (20:45)
[2021-04-01] MEDS: cloZAPine 100 MG TAB PO SCH (20:45)
[2021-04-01] MEDS: HEPARIN SODIUM,PORCINE/PF 5,000 UNIT/0.5 ML SYRINGE SQ SCH (20:46)
[2021-04-02] MEDS: LEVOTHYROXINE 112 MCG TAB PO SCH (05:46)
[2021-04-02] MEDS: ASCORBIC ACID 500 MG TAB PO SCH (09:20)
[2021-04-02] MEDS: ARIPiprazole 2 MG TAB PO SCH (09:20)
[2021-04-02] MEDS: CALCIUM CARBONATE 500 MG CHEWABLE PO SCH (09:22)
[2021-04-02] MEDS: ATORVASTATIN 10 MG TAB PO SCH (09:22)
[2021-04-02] MEDS: CHOLECALCIFEROL 10 MCG (400 IU) TABLET PO SCH (09:26)
[2021-04-02] MEDS: HEPARIN SODIUM,PORCINE/PF 5,000 UNIT/0.5 ML SYRINGE SQ SCH ×2 (09:28→20:42)
[2021-04-02] MEDS: METOPROLOL SUCCINATE (ER) 25 MG TAB.ER.24H PO SCH (09:30)
[2021-04-02] MEDS: MULTIVITAMINS, THERA 1 EACH TAB PO SCH (09:31)
[2021-04-02] MEDS: PANTOPRAZOLE 40 MG TABLET PO SCH (09:32)
[2021-04-02] MEDS: polyethylene glycoL 3350 17 GM POWD.PACK PO SCH (09:32)
--- NOTE | 2021-04-02 13:23 | P.PN ---
Progress Note - Text Progress Note Date: 04/02/21 Interval History: Patient was seen today for psychiatric follow up. Patient's nurse claimed that patient has been fairly paranoid and refused to take her medications this morning. Patient was seen sitting in her chair beside her bed and was agreeable to speak with commercial insurance underwriter. She claims that she is feeling paranoid about her care in the hospital and claims that she is feeling "weaker" today compared to yesterday. She states that it may be related to her not eating as she does not trust the food. She claims that she also does not trust the nurses giving her medications and states that "I'd rather take it at another facility". She asked commercial insurance underwriter for a "ride" to go to another hospital. She appears to have fairly poor insight into her need for treatment today. She also endorsed auditory hallucinations however did not explain what they're saying to her. At this time patient denies any suicidal or homical ideations, intent or plan. Patient denies any visual hallucinations. She claims that she slept fairly last night. she is denying any depression today. Mental Status Exam: General Appearance: [Patient appears to be short in stature, suspicious, stated age is alert, directable at times.] Behavior: [Patient is calmly seated without any agitated behavior.] Suspicious and paranoid. Speech: Patient's speech is fluent and nonpressured. Has attended Mood/Affect: Mood is "fine", affect is congruent and constricted. Suicidality/Homicidality: Patient denies having any suicidal or homicidal ideation intent or plan. Perceptions: Patient denies any visual hallucinations and does admit to auditory hallucinations. Though content/process: Patient is endorsing paranoia towards nurses and being poisoned in her food and medications. Focused on going to another hospital. Illogical. Memory and concentration: AOX3, grossly intact for the purposes of this session Judgment and insight: Poor Assessment/Plan: -continue with current assessment -At this time patient DOES meet criteria for inpatient geriatric psychiatric admission. -Delirium precautions recommended with patient including - avoiding use of narcotics and PIPELINE DISPATCH OPERATOR sedatives, limit anticholinergic medications when possible, frequent re-orientation, minimize use of restraints, open window shades during the day and close them at night -your medical management for UTI. -Would recommend the following medication changes/additions: Continue with Clozaril 300 mg at bedtime for psychosis and mood stabilization. Recommend gradual titration of this medication as needed over the weekend if patient is willing to take her meds. continue with Abilify 2 mg daily for psychosis. -The patient will require much direction and encouragement for medication adherence. -Cannot leave AMA at this time. Patient will need a petition and certification if attempting to leave AMA. -Will continue to follow along. -When medically stable, patient is eligible for transfer to a geriatric psych bed when available.
[2021-04-02] MEDS: OXYBUTYNIN 10 MG TAB.ER.24 PO SCH (20:45)
[2021-04-02] MEDS: cloZAPine 100 MG TAB PO SCH (20:45)
[2021-04-03] MEDS: LEVOTHYROXINE 112 MCG TAB PO SCH ×2 (05:33→06:24)
[2021-04-03] MEDS: ARIPiprazole 2 MG TAB PO SCH ×2 (09:41→13:05)
[2021-04-03] MEDS: ASCORBIC ACID 500 MG TAB PO SCH ×2 (09:42→13:07)
[2021-04-03] MEDS: CALCIUM CARBONATE 500 MG CHEWABLE PO SCH ×2 (09:42→13:07)
[2021-04-03] MEDS: ATORVASTATIN 10 MG TAB PO SCH ×2 (09:42→13:07)
[2021-04-03] MEDS: CHOLECALCIFEROL 10 MCG (400 IU) TABLET PO SCH ×2 (09:43→13:07)
[2021-04-03] MEDS: METOPROLOL SUCCINATE (ER) 25 MG TAB.ER.24H PO SCH ×2 (09:44→13:07)
[2021-04-03] MEDS: polyethylene glycoL 3350 17 GM POWD.PACK PO SCH (09:45)
[2021-04-03] MEDS: PANTOPRAZOLE 40 MG TABLET PO SCH ×2 (09:45→13:08)
[2021-04-03] MEDS: MULTIVITAMINS, THERA 1 EACH TAB PO SCH ×2 (09:45→13:08)
[2021-04-03] MEDS: HEPARIN SODIUM,PORCINE/PF 5,000 UNIT/0.5 ML SYRINGE SQ SCH ×2 (09:55→21:02)
[2021-04-03] MEDS: OXYBUTYNIN 10 MG TAB.ER.24 PO SCH ×2 (20:57→21:03)
[2021-04-03] MEDS: cloZAPine 100 MG TAB PO SCH ×2 (20:57→21:03)
--- NOTE | 2021-04-04 00:07 | P.PN ---
Progress Note - Text Progress Note Date: 04/03/21 Follow up psychiatric consult. Patient was evaluated today for f/up. Patient was alert and oriented to place and time. She reports feeling "blessing" but also she states "always thinking I want to ". Pt reports hearing voices talking about her and these voices are bothering her "I don't like anybody talk about me". She couldn't explain more about these voices but denies commands. She denies feeling angry, agitated or other mood swings. Denies any sleep or appetite problems. Pt denies any visual hallucinations. According to nursing staff, the patient is still confused and disorganized and to some degree paranoid. Mental Status Exam: General Appearance: Patient appears to be short in stature, stated age is alert, responding to redirection. Behavior: Patient is calmly seated without any agitated behavior. Suspicious and paranoid. Speech: Patient's speech is fluent and nonpressured. Mood/Affect: Mood is "fine", affect is congruent and constricted. Suicidality/Homicidality: Patient denies having any homicidal ideation intent or plan. She reports "I always thinking I want to " Perceptions: Patient denies any visual hallucinations and does admit to auditory hallucinations. Though content/process: Patient is endorsing paranoia. disorganized Memory and concentration: AOX3, grossly intact for the purposes of this session Judgment and insight: Poor Assessment/Plan: -continue with current assessment -At this time patient DOES meet criteria for inpatient geriatric psychiatric admission. -Delirium precautions recommended with patient including - avoiding use of narcotics and SIGN HANGER SUPERVISOR sedatives, limit anticholinergic medications when possible, frequent re-orientation, minimize use of restraints, open window shades during the day and close them at night -your medical management for UTI. -1:1 observation for safety and suicidal risk. -Continue the following medications: Clozaril 300 mg at bedtime for psychosis and mood stabilization. continue with Abilify 2 mg daily for psychosis. -The patient will require much direction and encouragement for medication adherence. -Cannot leave AMA at this time. Patient will need a petition and certification if attempting to leave AMA. -Will continue to follow along. -When medically stable, patient is eligible for transfer to a geriatric psych bed when available.
[2021-04-04] MEDS: LEVOTHYROXINE 112 MCG TAB PO SCH (05:25)
--- NOTE | 2021-04-04 10:42 | P.PN ---
Subjective Progress Note Date: 04/02/21 81 years old female with past medical history of Memory Impairment, Seizure Disorder, hypothyroidism Patient is somewhat poor historian and information were obtained with the help of the son and daughter at bedside. Family states that on March 16 was found in her bed with urine all over the place, she was taken to the hospital and on 03/19 she was discharged to [facility] for subacute rehab however there she was progressively getting more confused, agitated and paranoid thinking that they want to get her out and they doesn't wanted her and they were causing her so she stopped taking medication except vitamins. Yesterday she stopped eating and drinking so finally decided to bring her to the emergency room. Currently patient awake and appropriate but somewhat confused. Objective - Vital Signs Vital signs: Vital Signs Temp 99 F 04/02/21 13:05 Pulse 116 H 04/02/21 13:05 Resp 14 04/02/21 13:05 BP 157/79 04/02/21 13:05 Pulse Ox 98 04/02/21 13:05 Intake & Output 04/01/21 04/02/21 04/02/21 18:59 06:59 18:59 Intake Total 1300 Balance 1300 Intake: Intake, IV Titration 900 Amount Sodium Chloride 0.9% 1, 900 000 ml @ 75 mls/hr IV . [id number] ONE Rx#:[id number] Oral 400 Other: Voiding Method Bedside Commode Bedside Commode Toilet Diaper Diaper # Voids 5 4 2 - Exam -GENERAL: The patient is alert and somewhat confused, not in any acute distress. Well developed, well nourished. HEENT: Pupils are round and equally reacting to light. EOMI. No scleral icterus. No conjunctival pallor. Normocephalic, atraumatic. No pharyngeal erythema. No thyromegaly. CARDIOVASCULAR: S1 and S2 present. No murmurs, rubs, or gallops. PULMONARY: Chest is clear to auscultation, no wheezing or crackles. ABDOMEN: Soft, nontender, nondistended, normoactive bowel sounds. No palpable organomegaly. MUSCULOSKELETAL: No joint swelling or deformity. EXTREMITIES: No cyanosis, clubbing, or pedal edema. NEUROLOGICAL: Gross neurological examination did not reveal any focal deficits. SKIN: No rashes. No petechiae - Labs CBC & Chem 7: 03/31/21 20:08 03/31/21 20:08 Labs: Microbiology - Last 24 Hours (Table) 04/01/21 00:12 Urine Culture - Preliminary Urine,Voided Group D Enterococcus Assessment and Plan Assessment: acute urinary tract infection Metabolic encephalopathy secondary to above Acute psychosis, nonspecified Refusal to take medication History of memory impairment History of seizure disorder Hyperthyroidism Plan: This is a pleasant 81 years old female who presents with psychotic symptoms, and confusion and UTI. Tracts on an follow-up urine culture Psychiatrist to address her illnesses, auditory hallucinations she has an management with psych medication Labs and medication were reviewed.. Continue same treatment. Continue with symptomatic treatment. Resume home medication. Monitor lytes and vitals. DVT and GI prophylaxis. Further recommendationsas per clinical course of the patient DVT prophylaxis: Subcutaneous heparin GI Prophylaxis: Ppi Prognosis is guarded
--- NOTE | 2021-04-04 10:47 | P.PN ---
Subjective Progress Note Date: 04/03/21 Principal diagnosis: Acute urinary tract infection Metabolic encephalopathy Acute psychosis/schizophrenia 81 years old female with past medical history of Memory Impairment, Seizure Disorder, hypothyroidism Patient is somewhat poor historian and information were obtained with the help of the son and daughter at bedside. Family states that on March 16 was found in her bed with urine all over the place, she was taken to the hospital and on 03/19 she was discharged to [facility] for subacute rehab however there she was progressively getting more confused, agitated and paranoid thinking that they want to get her out and they doesn't wanted her and they were causing her so she stopped taking medication except vitamins. Yesterday she stopped eating and drinking so finally decided to bring her to the emergency room. Currently patient awake and appropriate but somewhat confused. 04/03/2021 Patient is seen and evaluated with family members at bedside; continues to refuse to take medications; vital signs remained stable Final urine culture reveals Enterococcus faecalis 10-49,000 colony count which is pansensitive; patient is currently on IV Rocephin; patient remains afebrile; we will plan to monitor CBC and pro-calcitonin with CRP; repeat urine culture Patient is being followed by psych and is recommended inpatient treatment; await [facility] psych placement Objective - Vital Signs Vital signs: Vital Signs Temp 97.6 F 04/03/21 12:46 Pulse 100 04/03/21 12:46 Resp 18 04/03/21 12:46 BP 127/75 04/03/21 12:46 Pulse Ox 100 04/03/21 12:46 Intake & Output 04/02/21 04/03/21 04/03/21 18:59 06:59 18:59 Intake Total 100 600 Balance 100 600 Intake: Intake, IV Titration 100 Amount cefTRIAXone 1 gm In 100 Sodium Chloride 0.9% 50 ml @ 100 mls/hr IVPB Q24HR [facility] Rx#:[id number] Oral 600 Other: Voiding Method Toilet Toilet Bedside Commode # Voids 2 3 - Exam -GENERAL: The patient is alert and somewhat confused, not in any acute distress. Well developed, well nourished. HEENT: Pupils are round and equally reacting to light. EOMI. No scleral icterus. No conjunctival pallor. Normocephalic, atraumatic. No pharyngeal erythema. No thyromegaly. CARDIOVASCULAR: S1 and S2 present. No murmurs, rubs, or gallops. PULMONARY: Chest is clear to auscultation, no wheezing or crackles. ABDOMEN: Soft, nontender, nondistended, normoactive bowel sounds. No palpable organomegaly. MUSCULOSKELETAL: No joint swelling or deformity. EXTREMITIES: No cyanosis, clubbing, or pedal edema. NEUROLOGICAL: Gross neurological examination did not reveal any focal deficits. SKIN: No rashes. No petechiae - Labs CBC & Chem 7: 03/31/21 20:08 03/31/21 20:08 Labs: Microbiology - Last 24 Hours (Table) 04/01/21 00:12 Urine Culture - Preliminary Urine,Voided Group D Enterococcus Assessment and Plan Assessment: acute urinary tract infection Metabolic encephalopathy secondary to above Acute psychosis, nonspecified Refusal to take medication History of memory impairment History of seizure disorder Hyperthyroidism Plan: This is a pleasant 81 years old female who presents with psychotic symptoms, and confusion and UTI. Tracts on an follow-up urine culture Psychiatrist to address her illnesses, auditory hallucinations she has an management with psych medication Labs and medication were reviewed.. Continue same treatment. Continue with symptomatic treatment. Resume home medication. Monitor lytes and vitals. DVT and GI prophylaxis. Further recommendationsas per clinical course of the patient DVT prophylaxis: Subcutaneous heparin GI Prophylaxis: Ppi Prognosis is guarded
[2021-04-04] MEDS: ARIPiprazole 2 MG TAB PO SCH (12:29)
[2021-04-04] MEDS: ASCORBIC ACID 500 MG TAB PO SCH (12:30)
[2021-04-04] MEDS: METOPROLOL SUCCINATE (ER) 25 MG TAB.ER.24H PO SCH (12:30)
[2021-04-04] MEDS: ATORVASTATIN 10 MG TAB PO SCH (12:30)
[2021-04-04] MEDS: HEPARIN SODIUM,PORCINE/PF 5,000 UNIT/0.5 ML SYRINGE SQ SCH ×2 (12:30→20:03)
[2021-04-04] MEDS: CHOLECALCIFEROL 10 MCG (400 IU) TABLET PO SCH (12:30)
[2021-04-04] MEDS: CALCIUM CARBONATE 500 MG CHEWABLE PO SCH (12:30)
[2021-04-04] MEDS: polyethylene glycoL 3350 17 GM POWD.PACK PO SCH (12:31)
[2021-04-04] MEDS: MULTIVITAMINS, THERA 1 EACH TAB PO SCH (12:31)
[2021-04-04] MEDS: PANTOPRAZOLE 40 MG TABLET PO SCH (12:31)
[2021-04-04] MEDS: cloZAPine 100 MG TAB PO SCH (20:03)
[2021-04-04] MEDS: OXYBUTYNIN 10 MG TAB.ER.24 PO SCH (20:03)
--- NOTE | 2021-04-04 20:23 | P.PN ---
Subjective Progress Note Date: 03/28/21 Principal diagnosis: Acute urinary tract infection Metabolic encephalopathy Acute psychosis/schizophrenia 81 years old female with past medical history of Memory Impairment, Seizure Disorder, hypothyroidism Patient is somewhat poor historian and information were obtained with the help of the son and daughter at bedside. Family states that on March 16 was found in her bed with urine all over the place, she was taken to the hospital and on 03/19 she was discharged to [facility] for subacute rehab however there she was progressively getting more confused, agitated and paranoid thinking that they want to get her out and they doesn't wanted her and they were causing her so she stopped taking medication except vitamins. Yesterday she stopped eating and drinking so finally decided to bring her to the emergency room. Currently patient awake and appropriate but somewhat confused. 04/03/2021 Patient is seen and evaluated with family members at bedside; continues to refuse to take medications; vital signs remained stable Final urine culture reveals Enterococcus faecalis 10-49,000 colony count which is pansensitive; patient is currently on IV Rocephin; patient remains afebrile; we will plan to monitor CBC and pro-calcitonin with CRP; repeat urine culture Patient is being followed by psych and is recommended inpatient treatment; await [facility] psych placement 04/04/2021 Patient is seen and evaluated in room at bedside and discussed with nursing staff; still refusing to take on oral medications Vital signs are reviewed and stable We will continue with current management and await placement to [facility] Objective - Vital Signs Vital signs: Vital Signs Temp 98.2 F 04/04/21 05:00 Pulse 107 H 04/04/21 07:55 Resp 18 04/04/21 05:00 BP 133/83 04/04/21 07:55 Pulse Ox 98 04/04/21 05:00 Intake & Output 04/03/21 04/04/21 04/04/21 18:59 06:59 18:59 Intake Total 640 600 Balance 640 600 Intake: Intake, IV Titration 240 Amount cefTRIAXone 1 gm In 240 Sodium Chloride 0.9% 50 ml @ 100 mls/hr IVPB Q24HR [facility] Rx#:[id number] Oral 400 600 Other: Voiding Method Toilet Toilet Toilet Bedside Commode Bedside Commode Bedside Commode # Voids 2 3 - Exam -GENERAL: The patient is alert and somewhat confused, not in any acute distress. Well developed, well nourished. HEENT: Pupils are round and equally reacting to light. EOMI. No scleral icterus. No conjunctival pallor. Normocephalic, atraumatic. No pharyngeal erythema. No thyromegaly. CARDIOVASCULAR: S1 and S2 present. No murmurs, rubs, or gallops. PULMONARY: Chest is clear to auscultation, no wheezing or crackles. ABDOMEN: Soft, nontender, nondistended, normoactive bowel sounds. No palpable organomegaly. MUSCULOSKELETAL: No joint swelling or deformity. EXTREMITIES: No cyanosis, clubbing, or pedal edema. NEUROLOGICAL: Gross neurological examination did not reveal any focal deficits. SKIN: No rashes. No petechiae - Labs CBC & Chem 7: 03/31/21 20:08 03/31/21 20:08 Labs: Microbiology - Last 24 Hours (Table) 04/01/21 00:12 Urine Culture - Final Urine,Voided Enterococcus faecalis Assessment and Plan Assessment: acute urinary tract infection Metabolic encephalopathy secondary to above Acute psychosis, nonspecified Refusal to take medication History of memory impairment History of seizure disorder Hyperthyroidism Plan: This is a pleasant 81 years old female who presents with psychotic symptoms, and confusion and UTI. Tracts on an follow-up urine culture Psychiatrist to address her illnesses, auditory hallucinations she has an management with psych medication Labs and medication were reviewed.. Continue same treatment. Continue with symptomatic treatment. Resume home medication. Monitor lytes and vitals. DVT and GI prophylaxis. Further recommendationsas per clinical course of the patient DVT prophylaxis: Subcutaneous heparin GI Prophylaxis: Ppi Prognosis is guarded
[2021-04-05] MEDS: LEVOTHYROXINE 112 MCG TAB PO SCH (08:15)
[2021-04-05] MEDS: PANTOPRAZOLE 40 MG TABLET PO SCH (09:44)
[2021-04-05] MEDS: HEPARIN SODIUM,PORCINE/PF 5,000 UNIT/0.5 ML SYRINGE SQ SCH ×2 (09:44→20:54)
[2021-04-05] MEDS: MULTIVITAMINS, THERA 1 EACH TAB PO SCH (09:44)
[2021-04-05] MEDS: CHOLECALCIFEROL 10 MCG (400 IU) TABLET PO SCH (09:44)
[2021-04-05] MEDS: polyethylene glycoL 3350 17 GM POWD.PACK PO SCH (09:44)
[2021-04-05] MEDS: ATORVASTATIN 10 MG TAB PO SCH (09:44)
[2021-04-05] MEDS: ARIPiprazole 2 MG TAB PO SCH (09:44)
[2021-04-05] MEDS: CALCIUM CARBONATE 500 MG CHEWABLE PO SCH (09:44)
[2021-04-05] MEDS: ASCORBIC ACID 500 MG TAB PO SCH (09:44)
[2021-04-05] MEDS: METOPROLOL SUCCINATE (ER) 25 MG TAB.ER.24H PO SCH (09:44)
[2021-04-05 11:34] VITALS: BMI 33.8
--- NOTE | 2021-04-05 14:19 | P.PN ---
Progress Note - Text Progress Note Date: 04/05/21 Interval History: Patient was seen sitting comfortably in her chair about the lunch. Currently, the patient continues to endorse significant psychotic symptoms. She currently believes that her hands are causing others pain. Despite being told otherwise, the patient firmly believes this. She continues to endorse auditory hallucinations which she attributes to messages from "God." The patient states that God is telling her to remain clean in order to be cured. She also informs this provider that this got that is telling her not to take her medications. This provider spent a significant amount of time encouraging medication adherence. She is currently not endorsing any suicidal or homicidal ideation, intention, and/or plan. She is not endorsing any visual hallucinations. Mental Status Exam: General Appearance: Patient appears to be stated age is alert, directable, and cooperative. Behavior: Patient is calmly seated without any agitated behavior. Speech: Patient's speech is fluent and nonpressured. Mood/Affect: Mood is "feeling okay." Affect is calm and slightly anxious. Suicidality/Homicidality: Patient denies having any suicidal or homicidal ideation intent or plan. Perceptions: Patient denies any visual hallucinations but endorses auditory h allucinations. Though content/process: Patient is endorsing significant delusional thought content. Thought process is religiously preoccupied. Memory and concentration: AOX3, grossly intact for the purposes of this session Judgment and insight: Very poor Vital Signs Temp 97.9 F 04/05/21 13:00 Pulse 105 H 04/05/21 13:00 Resp 14 04/05/21 13:00 BP 120/78 04/05/21 13:00 Pulse Ox 97 04/05/21 13:00 Intake & Output 04/04/21 04/05/21 04/05/21 18:59 06:59 18:59 Intake Total 600 Balance 600 Weight 73.482 kg Intake: Oral 600 Other: Voiding Method Toilet Toilet Toilet Bedside Commode Bedside Commode Bedside Commode Diaper Diaper # Voids 3 3 Assessment Schizophrenia Plan: -At this time patient DOES meet criteria for inpatient geriatric psychiatric admission. The patient is actively psychotic and is endorsing significant psychotic symptoms that are detrimental to her health causing her to be nonadherent with her psychotropic medications as well as some of her medical medications. -Delirium precautions recommended with patient including - avoiding use of narcotics and DIESEL BUS MECHANIC sedatives, limit anticholinergic medications when possible, frequent re-orientation, minimize use of restraints, open window shades during the day and close them at night -Recommend your medical management for UTI. -Would recommend the following medication changes/additions: Continue Clozaril 200 mg by mouth at bedtime for psychosis. We will continue to encourage medication adherence. Continue Abilify 2 mg by mouth daily for psychosis. We will continue to encourage medication adherence. -EKG reviewed - QTc 466 ms. NSR. -Clozaril levels from 03/24/2021: Clozapine 413 (WNL), Norclozapine 212 (WNL) -The patient will require much direction and encouragement for medication adherence. She is currently agreeable at this time. -Cannot leave AMA at this time. Patient will need a petition and certification if attempting to leave AMA. -Will continue to follow along. -Discontinue one-to-one sitter. Maintain q15 min wellness checks. Patient does not appear an imminent risk for self harm and has been calm and cooperative on the floor. We will maintain checks to ensure patient safety. -When medically stable, patient is eligible for transfer to a geriatric psych bed when available.
[2021-04-05] MEDS: OXYBUTYNIN 10 MG TAB.ER.24 PO SCH (20:54)
[2021-04-05] MEDS: cloZAPine 100 MG TAB PO SCH (20:54)
[2021-04-06] MEDS: LEVOTHYROXINE 112 MCG TAB PO SCH (05:29)
--- NOTE | 2021-04-06 06:19 | P.PN ---
Subjective Progress Note Date: 04/05/21 Acute urinary tract infection Metabolic encephalopathy Acute psychosis/schizophrenia 81 years old female with past medical history of Memory Impairment, Seizure Disorder, hypothyroidism Patient is somewhat poor historian and information were obtained with the help of the son and daughter at bedside. Family states that on March 16 was found in her bed with urine all over the place, she was taken to the hospital and on 03/19 she was discharged to [facility] for subacute rehab however there she was progressively getting more confused, agitated and paranoid thinking that they want to get her out and they doesn't wanted her and they were causing her so she stopped taking medication except vitamins. Yesterday she stopped eating and drinking so finally decided to bring her to the emergency room. Currently patient awake and appropriate but somewhat confused. 04/03/2021 Patient is seen and evaluated with family members at bedside; continues to refuse to take medications; vital signs remained stable Final urine culture reveals Enterococcus faecalis 10-49,000 colony count which is pansensitive; patient is currently on IV Rocephin; patient remains afebrile; we will plan to monitor CBC and pro-calcitonin with CRP; repeat urine culture Patient is being followed by psych and is recommended inpatient treatment; await [facility] placement 04/04/2021 Patient is seen and evaluated in room at bedside and discussed with nursing staff; still refusing to take on oral medications Vital signs are reviewed and stable We will continue with current management and await placement to [facility] 04/05/2021 Patient is seen in follow up and continues to endorse state of psychosis. Patient has been treated with IV antibiotics for UTI with cultures showing enterococcus faecalis. Will continue for now. Patient continues to be selective with oral medications and refusing medications. Patient has been on abx since admission and denies any pain or burning with urination. Patient continues to no want to eat as well. Psych following the patient recommending inpatient [facility] and social work following and has submitted referrals and awaiting accepting facility. Med cert done and awaiting placement. No reports of chest pain or shortness of breath. Patient is afebrile. Review of systems: Unable to obtain as patient is confused All medications have been reviewed Physical exam: GENERAL: The patient is alert and somewhat confused, not in any acute distress. Well developed, well nourished. HEENT: Pupils are round and equally reacting to light. EOMI. No scleral icterus. No conjunctival pallor. Normocephalic, atraumatic. No pharyngeal erythema. No thyromegaly. CARDIOVASCULAR: S1 and S2 present. No murmurs, rubs, or gallops. PULMONARY: Chest is clear to auscultation, no wheezing or crackles. ABDOMEN: Soft, nontender, nondistended, normoactive bowel sounds. No palpable organomegaly. MUSCULOSKELETAL: No joint swelling or deformity. EXTREMITIES: No cyanosis, clubbing, or pedal edema. NEUROLOGICAL: Gross neurological examination did not reveal any focal deficits. SKIN: No rashes. No petechiae Assessment: acute urinary tract infection Metabolic encephalopathy secondary to above Acute psychosis, nonspecified Refusal to take medication History of memory impairment History of seizure disorder Hyperthyroidism dvt prophylaxis gi prophylaxis Plan: This is a pleasant 81 years old female who presents with psychotic symptoms, and confusion and UTI. urine culture shows enterococcus faecalis and has received abx since admission and will discontinue and continue short course of oral on discharge. Patient continues with hallucinations and is calm and cooperative. Awaiting accepting [facility] for placement. Medical cert done and social work working on accepting facilities. Objective - Vital Signs Vital signs: Vital Signs Temp 97.7 F 04/05/21 04:39 Pulse 101 H 04/05/21 04:39 Resp 18 04/05/21 04:39 BP 114/71 04/05/21 04:39 Pulse Ox 97 04/05/21 04:39 Intake & Output 04/04/21 04/05/21 04/05/21 18:59 06:59 18:59 Intake Total 600 Balance 600 Intake: Oral 600 Other: Voiding Method Toilet Toilet Bedside Commode Bedside Commode Diaper # Voids 3 3 - Labs CBC & Chem 7: 03/31/21 20:08 03/31/21 20:08
[2021-04-06] MEDS: HEPARIN SODIUM,PORCINE/PF 5,000 UNIT/0.5 ML SYRINGE SQ SCH (07:20)
[2021-04-06] MEDS: METOPROLOL SUCCINATE (ER) 25 MG TAB.ER.24H PO SCH (08:13)
[2021-04-06] MEDS: polyethylene glycoL 3350 17 GM POWD.PACK PO SCH (08:14)
[2021-04-06] MEDS: PANTOPRAZOLE 40 MG TABLET PO SCH (08:14)
[2021-04-06] MEDS: CHOLECALCIFEROL 10 MCG (400 IU) TABLET PO SCH (08:14)
[2021-04-06] MEDS: MULTIVITAMINS, THERA 1 EACH TAB PO SCH (08:14)
[2021-04-06] MEDS: ASCORBIC ACID 500 MG TAB PO SCH (08:14)
[2021-04-06] MEDS: CALCIUM CARBONATE 500 MG CHEWABLE PO SCH (08:14)
[2021-04-06] MEDS: ATORVASTATIN 10 MG TAB PO SCH (08:14)
[2021-04-06] MEDS: ARIPiprazole 2 MG TAB PO SCH (08:15)
[2021-04-06 11:11] VITALS: BP 134/80; PULSE 96; RESP 18; TEMP 97.9
--- NOTE | 2021-04-06 13:43 | P.DS ---
Providers Date of admission: 04/01/21 14:34 Expected date of discharge: 04/06/21 Attending physician: Bashir Martinez MD Consults: 03/31/21 20:27 Consult Physician Urgent Consulting Provider: Jose Sanchez Consult Reason/Comments: Noncompliant psychiatric medications, auditory hallucinations, psychosis Do you want consulting provider notified?: Yes Primary care physician: Anthony Garcia Amador [facility] Course: Final diagnosis acute urinary tract infection, present on admission Metabolic encephalopathy secondary to above Acute psychosis, nonspecified Refusal to take medication History of memory impairment History of seizure disorder Hyperthyroidism dvt prophylaxis gi prophylaxis Discharge disposition Patient is being discharged in a stable condition with guarded prognosis to [facility] inpatient geriatric psychiatric unit for further evaluation. Patient will follow-up with Dr. Nolasco in the outpatient setting upon discharge. Patient is to continue with hemodialysis as scheduled. Total time taken is greater than 35 minutes. Hospital course Acute urinary tract infection Metabolic encephalopathy Acute psychosis/schizophrenia 81 years old female with past medical history of Memory Impairment, Seizure Disorder, hypothyroidism Patient is somewhat poor historian and information were obtained with the help of the son and daughter at bedside. Family states that on March 16 was found in her bed with urine all over the place, she was taken to the hospital and on 03/19 she was discharged to [facility] for subacute rehab however there she was progressively getting more confused, agitated and paranoid thinking that they want to get her out and they doesn't wanted her and they were causing her so she stopped taking medication except vitamins. Yesterday she stopped eating and drinking so finally decided to bring her to the emergency room. Currently patient awake and appropriate but somewhat confused. 04/03/2021 Patient is seen and evaluated with family members at bedside; continues to refuse to take medications; vital signs remained stable Final urine culture reveals Enterococcus faecalis 10-49,000 colony count which is pansensitive; patient is currently on IV Rocephin; patient remains afebrile; we will plan to monitor CBC and pro-calcitonin with CRP; repeat urine culture Patient is being followed by psych and is recommended inpatient treatment; await [facility] placement 04/04/2021 Patient is seen and evaluated in room at bedside and discussed with nursing staff; still refusing to take on oral medications Vital signs are reviewed and stable We will continue with current management and await placement to [facility] 04/05/2021 Patient is seen in follow up and continues to endorse state of psychosis. Patient has been treated with IV antibiotics for UTI with cultures showing enterococcus faecalis. Will continue for now. Patient continues to be selective with oral medications and refusing medications. Patient has been on abx since admission and denies any pain or burning with urination. Patient continues to no want to eat as well. Psych following the patient recommending inpatient [facility] and social work following and has submitted referrals and awaiting accepting facility. Med cert done and awaiting placement. No reports of chest pain or shortness of breath. Patient is afebrile. 04/06/2021 Patient is seen and evaluated in follow-up this morning up and using the bathroom with no difficulties. Patient denies any pain or burning with urination denies any urinary frequency. Patient was maintained on IV antibiotics for 5 days and will discontinue antibiotic therapy. Urine culture finalized showing enteroccoccus faecalis and has received 5 days of antibiotic therapy through the IV. Patient has been accepted to [facility] in [place] at the inpatient geriatric psychiatric unit for further evaluation. Psychiatry here following closely recommending continuing with current medications as listed below. Currently no reports of chest pain, shortness of breath, or palpitations. Patient is afebrile. No reports of nausea or vomiting and patient is tolerating diet. Patient will be transferred to [facility] today. Guarded prognosis. GENERAL: The patient is alert and somewhat confused, not in any acute distress. Well developed, well nourished. HEENT: Pupils are round and equally reacting to light. EOMI. No scleral icterus. No conjunctival pallor. Normocephalic, atraumatic. No pharyngeal erythema. No thyromegaly. CARDIOVASCULAR: S1 and S2 present. No murmurs, rubs, or gallops. PULMONARY: Chest is clear to auscultation, no wheezing or crackles. ABDOMEN: Soft, nontender, nondistended, normoactive bowel sounds. No palpable organomegaly. MUSCULOSKELETAL: No joint swelling or deformity. EXTREMITIES: No cyanosis, clubbing, or pedal edema. NEUROLOGICAL: Gross neurological examination did not reveal any focal deficits. SKIN: No rashes. No petechiae Please refer to medication reconciliation sheet for a list of medications. Patient Condition at Discharge: Stable Plan - Discharge Summary Discharge Rx Participant: No New Discharge Prescriptions: Continue cloZAPine [Clozaril] 300 mg PO HS Levothyroxine Sodium [Synthroid] 112 mcg PO DAILY Meclizine [Antivert] 25 mg PO BID PRN PRN Reason: DIZZINESS Lovastatin [Mevacor] 20 mg PO DAILY ARIPiprazole [Abilify] 2 mg PO DAILY Vitamin E (Dl,Tocopheryl Acet) [Vitamin E (400 Iu = 180 mg)] 400 unit PO DAILY Cholecalciferol [Vitamin D3 (10 Mcg = 400 Iu)] 20 mcg PO DAILY polyethylene glycoL 3350 [Miralax] 17 gm PO DAILY Ascorbic Acid [Vitamin C] 1,000 mg PO DAILY rOPINIRole HCL [Requip] 0.25 mg PO DAILY Tolterodine ER [Detrol LA] 4 mg PO HS Pantoprazole Sodium [Protonix] 40 mg PO DAILY Multivitamins, Thera [Multivitamin (formulary)] 1 tab PO DAILY Metoprolol Succinate (ER) [Toprol XL] 25 mg PO DAILY Fluticasone Nasal [place] [Flonase Nasal [place]] 1 spray EA NOSTRIL HS PRN PRN Reason: Allergy Symptoms Calcium Carbonate [Calcium] 600 mg PO DAILY Discontinued Letrozole 2.5 mg PO HS Rivastigmine Tartrate [Rivastigmine] 1.5 mg PO BID-W/MEALS Discharge Medication List ARIPiprazole [Abilify] 2 mg PO DAILY 09/28/16 [History] Levothyroxine Sodium [Synthroid] 112 mcg PO DAILY 09/28/16 [History] Lovastatin [Mevacor] 20 mg PO DAILY 09/28/16 [History] Meclizine [Antivert] 25 mg PO BID PRN 09/28/16 [History] cloZAPine [Clozaril] 300 mg PO HS 09/28/16 [History] Ascorbic Acid [Vitamin C] 1,000 mg PO DAILY 03/16/21 [History] Calcium Carbonate [Calcium] 600 mg PO DAILY 03/16/21 [History] Cholecalciferol [Vitamin D3 (10 Mcg = 400 Iu)] 20 mcg PO DAILY 03/16/21 [History] Fluticasone Nasal [place] [Flonase Nasal [place]] 1 spray EA NOSTRIL HS PRN 03/16/21 [History] Metoprolol Succinate (ER) [Toprol XL] 25 mg PO DAILY 03/16/21 [History] Multivitamins, Thera [Multivitamin (formulary)] 1 tab PO DAILY 03/16/21 [History] Pantoprazole Sodium [Protonix] 40 mg PO DAILY 03/16/21 [History] Tolterodine ER [Detrol LA] 4 mg PO HS 03/16/21 [History] Vitamin E (Dl,Tocopheryl Acet) [Vitamin E (400 Iu = 180 mg)] 400 unit PO DAILY 03/16/21 [History] polyethylene glycoL 3350 [Miralax] 17 gm PO DAILY 03/16/21 [History] rOPINIRole HCL [Requip] 0.25 mg PO DAILY 03/16/21 [History] Follow up Appointment(s)/Referral(s): Anthony English MD [Primary Care Provider] - 1-2 days Ambulatory/Diagnostic Orders: Complete Blood Count w/diff [LAB.AMB] Time Frame: 2 Days, Location: [facility] [place] [facility] le[facility] Activity/Diet/Wound Care/Special Instructions: Patient is going to [facility] in [place] inpatient geriatric psych facility Activity as tolerated Continue regular diet Repeat CBC and BMP in 1-2 days for Clazuril monitoring Continue with ensure compact 3 times a day with meals supplements Follow-up primary care provider on discharge
--- NOTE | 2021-04-06 13:53 | P.PN ---
Progress Note - Text Progress Note Date: 04/06/21 Interval History: Patient was seen sitting comfortably in her chair about the lunch. Patient re ports she is feeling better. She states she took her morning medications. She continues to endorse auditory hallucinations which she describes are commanding in nature. They tell her to "be clean." She also reports she has had suicidal thoughts this morning. She denies any intention or plan. She reports a strong desire to live. She continues to have a bizarre belief that her hands are causing problems for others and expresses a desire to get rid of them but denies any intention to do so. Mental Status Exam: General Appearance: Patient appears to be stated age is alert, directable, and cooperative. Behavior: Patient is calmly seated without any agitated behavior. Speech: Patient's speech is fluent and nonpressured. Mood/Affect: Mood is "Doing better." Affect is calm and bright. Suicidality/Homicidality: Reports suicidal ideation but no homicidal ideation. Perceptions: Patient denies any visual hallucinations but endorses auditory hallucinations. Though content/process: Patient is endorsing significant delusional thought content. Thought process is religiously preoccupied. Memory and concentration: AOX3, grossly intact for the purposes of this session Judgment and insight: Very poor Assessment Schizophrenia Plan: -At this time patient DOES meet criteria for inpatient geriatric psychiatric admission. The patient is actively psychotic and is endorsing significant psychotic symptoms that are detrimental to her health causing her to be nonadherent with her psychotropic medications as well as some of her medical medications. -Clozaril levels from 03/24/2021: Clozapine 413 (WNL), Norclozapine 212 (WNL) -The patient will require much direction and encouragement for medication adherence. She is currently agreeable at this time. -Cannot leave AMA at this time. Patient will need a petition and certification if attempting to leave AMA. -Psychiatry will sign off at this time. Patient to be transferred today.
== END 2021-04-06 18:21 | DRG 689 ==
LOC: EC 18:15 → 5NMEDONC 20:28 → OBSVTOIN 04-01 14:34
PROVIDERS: ADMIT Internal Medicine; ATTEND Internal Medicine
DX: N39.0 Urinary tract infection, site not specified (principal); G93.41 Metabolic encephalopathy; B95.2 Enterococcus as the cause of diseases classified elsewhere; Z20.822 Contact with and (suspected) exposure to COVID-19; E03.9 Hypothyroidism, unspecified; E05.90 Thyrotoxicosis, unspecified without thyrotoxic crisis or storm; F20.9 Schizophrenia, unspecified; F41.9 Anxiety disorder, unspecified; G40.909 Epilepsy, unspecified, not intractable, without status epilepticus; R45.1 Restlessness and agitation; Z53.29 Procedure and treatment not carried out because of patient's decision for other reasons; E66.9 Obesity, unspecified; Z68.33 Body mass index [BMI] 33.0-33.9, adult; Z79.890 Hormone replacement therapy; Z79.899 Other long term (current) drug therapy; Z85.3 Personal history of malignant neoplasm of breast; Z85.41 Personal history of malignant neoplasm of cervix uteri; Z87.891 Personal history of nicotine dependence; Z91.14 Patient's other noncompliance with medication regimen; Z91.19 Patient's noncompliance with other medical treatment and regimen; Z91.5 Personal history of self-harm; Z88.1 Allergy status to other antibiotic agents; Z88.0 Allergy status to penicillin; Z88.8 Allergy status to other drugs, medicaments and biological substances
CPT/HCPCS: 36415; 71046; 80053; 81001; 82075; 82607; 82747; 83880; 85025; 86780; 87077; 87086; 87186; 87635; 93005; 99285

== ENCOUNTER 2021-08-02 05:52 | Emergency (ER) | payer MEDICARE, BC ==
--- NOTE | 2021-08-02 06:27 | XR ---
EXAMINATION TYPE: XR chest 1V portable DATE OF EXAM: 08/02/2021 COMPARISON: 03/31/2021 HISTORY: Chest pain TECHNIQUE: FINDINGS: There is no heart failure no confluent pneumonic infiltrate. Costophrenic angles are clear. There are no hilar masses. There are chest leads. Thoracic aorta is atheromatous. There is no pleura l effusion. IMPRESSION: No active cardiopulmonary disease. No change.
--- NOTE | 2021-08-02 06:29 | XR ---
EXAMINATION TYPE: XR pelvis AP view DATE OF EXAM: 08/02/2021 COMPARISON: NONE HISTORY: Pain Trauma TECHNIQUE: Single view FINDINGS: Pelvic ring is intact. Proximal femurs and hip joints are intact. There is no sign of a fra cture. Sacroiliac joints are intact. IMPRESSION: Negative exam. No fracture seen.
[2021-08-02 06:32] LABS: Basophils % (A) 1 %; Eosinophils % (A) 0 %; HCT 28.3 % (34.0-46.0); HGB 9.2 gm/dL (11.4-16.0); Lymphocytes # (A) 1.6 k/uL (1.0-4.8); Lymphocytes % (A) 33 %; MCH 31.2 pg (25.0-35.0); MCHC 32.4 g/dL (31.0-37.0); MCV 96.3 fL (80.0-100.0); Mean Platelet Volume 9.4; Monocytes # (A) 0.3 k/uL (0-1.0); Monocytes % (A) 6 %; Neutrophils # (A) 2.8 k/uL (1.3-7.7); Neutrophils % (A) 57 %; Platelet Count 154 k/uL (150-450); RBC 2.94 m/uL (3.80-5.40); RDW 15.2 % (11.5-15.5); WBC 4.8 k/uL (3.8-10.6)
[2021-08-02 06:47] LABS: INR 0.9 (<1.2); Partial Thromboplastin Time 22.7 sec (22.0-30.0); Prothrombin Time 9.6 sec (9.0-12.0)
[2021-08-02 06:49] LABS: Albumin 2.7 g/dL (3.5-5.0); Calcium 7.9 mg/dL (8.4-10.2); Magnesium 2.3 mg/dL (1.6-2.3); Total Bilirubin 0.3 mg/dL (0.2-1.3)
--- NOTE | 2021-08-02 06:56 | ED ---
Fall HPI - General Chief Complaint: Fall Stated Complaint: Fall, Dizziness Time Seen by Provider: 08/02/21 06:05 Source: patient, EMS, RN notes reviewed Mode of arrival: EMS - History of Present Illness Initial Comments: This is a pleasant 81-year-old female who arrives via EMS from [facility]. Patient lives in an independent apartment at that facility. Patient to go to [facility] bathroom and was walking back to her room this morning and fell in between her dresser in the bed. Patient was unable to get up. Patient states she was out for about 10-15 minutes. Patient denies any pain or injury. However, she was unable get back up on her own. Patient also fell yesterday. She struck the occipital region of her head. Again there was no loss of consciousness. Patient does not believe she is on any blood thinners. She is denying any confusion. Patient states she has had a stuffy nose for the past few days. She's also had a very mild cough. She denies any fevers. Patient has had no shortness of breath or chest pain. She denies any changes in vision or hearing. No neck pain. No abdominal pain. No nausea or vomiting. No changes in bowel movements or urination. No extremity pain. No rashes or lesions. She denies any preceding symptomology. There were no preceding symptoms of syncope. MD Complaint: fall - Related Data Home Medications Medication Instructions Recorded Confirmed Levothyroxine Sodium [Synthroid] 112 mcg PO DAILY 09/28/16 08/02/21 cloZAPine [Clozaril] 200 mg PO HS@199909/28/16 08/02/21 Metoprolol Succinate (ER) [Toprol 25 mg PO DAILY 03/16/21 08/02/21 XL] Multivitamins, Thera [Multivitamin 1 tab PO DAILY 03/16/21 08/02/21 (formulary)] polyethylene glycoL 3350 [Miralax] 17 gm PO DAILY 03/16/21 08/02/21 rOPINIRole HCL [Requip] 0.25 mg PO DAILY 03/16/21 08/02/21 Acetaminophen Tab [Tylenol] 325 mg PO AC-BID@1200,1800 08/02/21 08/02/21 Docusate [Colace] 100 mg PO DAILY PRN 08/02/21 08/02/21 Omeprazole 20 mg PO DAILY 08/02/21 08/02/21 Oxybutynin Chloride [Ditropan] 10 mg PO HS 08/02/21 08/02/21 Potassium Chloride ER [K-Dur 20] 20 meq PO DAILY@1200 08/02/21 08/02/21 cloZAPine [Clozaril] 100 mg PO DAILY 08/02/21 08/02/21 cloZAPine [Clozaril] 150 mg PO DAILY@1600 08/02/21 08/02/21 Previous Rx's Medication Instructions Recorded Acetaminophen [Tylenol] 500 mg PO Q6H PRN #24 tab 08/02/21 Allergies Allergy/AdvReac Type Severity Reaction Status Date / Time amoxicillin [From Augmentin] Allergy Rash/Hives Verified 08/02/21 09:01 capsaicin [From Zostrix] Allergy Rash/Hives Verified 08/02/21 09:01 clavulanic acid Allergy Rash/Hives Verified 08/02/21 09:01 [From Augmentin] Review of Systems ROS Statement: Those systems with pertinent positive or pertinent negative responses have been documented in the HPI. ROS Other: All systems not noted in ROS Statement are negative. Past Medical History Past Medical History: Cancer, Memory Impairment, Seizure Disorder, Thyroid Disorder Additional Past Medical History / Comment(s): hx. cervical cancer, dizzy spells & falling, breast ca History of Any Multi-Drug Resistant Organisms: None Reported Past Surgical History: Breast Surgery Additional Past Surgical History / Comment(s): surg for breast abscess x2, lumpectomy left Past Anesthesia/Blood Transfusion Reactions: No Reported Reaction Past Psychological History: Anxiety, Schizophrenia Smoking Status: Never smoker Past Alcohol Use History: None Reported Past Drug Use History: None Reported - Past Family History Mother Family Medical History: No Reported History General Exam - General Exam Comments Initial Comments: Deconditioned appearing 82-year-old female in no acute distress. Cranial nerves II through XII are intact. Patient does not appear to be ill or toxic. Capillary refill is 3-4 seconds. Limitations: no limitations General appearance: alert, in no apparent distress Head exam: Present: normocephalic, normal inspection, other (Slight contusion noted to the right occipital area. No break in skin integrity. No step-off. No crepitus. Normocephalic atraumatic otherwise.) Eye exam: Present: normal appearance, PERRL, EOMI. Absent: scleral icterus, conjunctival injection, periorbital swelling Pupils: Present: normal accommodation ENT exam: Present: normal exam, mucous membranes moist Neck exam: Present: normal inspection. Absent: tenderness, meningismus, lymphadenopathy Respiratory exam: Present: normal lung sounds bilaterally. Absent: respiratory distress, wheezes, rales, rhonchi, stridor Cardiovascular Exam: Present: regular rate, normal rhythm, normal heart sounds. Absent: systolic murmur, diastolic murmur, rubs, gallop, clicks GI/Abdominal exam: Present: soft, normal bowel sounds. Absent: distended, tend erness, guarding, rebound, rigid Rectal exam: Present: normal rectal tone, hemorrhoids, other (Brown stool on examination, no gross blood). Absent: bloody stool, fecal impaction, mass, tenderness Extremities exam: Present: normal inspection, full ROM, tenderness, normal capillary refill, other (Patient does have some tenderness to the right anterior knee. There is no break in skin integrity. No crepitus. Range of motion essentially full with some pain. Distal proximal injury. Pedal pulses are intact). Absent: pedal edema, joint swelling, calf tenderness Back exam: Present: normal inspection. Absent: tenderness, CVA tenderness (R), CVA tenderness (L), muscle spasm, paraspinal tenderness, vertebral tenderness Neurological exam: Present: alert, oriented X3, CN II-XII intact. Absent: motor sensory deficit Expanded Patient oriented to: Present: person, place, time Speech: Present: fluid speech Cerebellar function: Finger to Nose: Normal, Heel to [place]: Normal Eye Response: (4) open spontaneously Motor Response: (6) obeys commands Verbal Response: (5) oriented Psychiatric exam: Present: normal affect, normal mood Skin exam: Present: warm, dry, intact, normal color. Absent: rash Course Vital Signs 08/02/21 08/02/21 05:55 07:53 Temperature 97.9 F 97.7 F Pulse Rate 83 85 Respiratory 16 14 Rate Blood Pressure 144/77 162/84 O2 Sat by Pulse 95 97 Oximetry - Reevaluation(s) Reevaluation #1: 08/02/21 07:35 Patient reevaluated and is essentially unchanged. Still complaining of right knee pain. X-rays were negative. Computed tomography scan did not show any acute pathology. In fact, the right knee x-ray did show advanced osteoarthritis with some mild effusion. No fracture. We'll order acetaminophen. Reevaluation #2: 08/02/21 08:17 Patient reevaluated is resting in bed. Rectal examination was performed with female RN supervisor graphite. Medical Decision Making - Medical Decision Making Patient had a mechanical fall 2 days in a row. There were no preceding symptoms. Patient did bump the back of her head. She is not on blood thinners. We'll obtain a computed tomography scan based on [place] CT rules. Patient had a drop in hemoglobin of 2 over the past few months. Current hemoglobin 9.2. Rectal examination performed. - Lab Data Result diagrams: 08/02/21 06:18 08/02/21 06:18 Lab Results 08/02/21 08/02/21 08/02/21 Range/Units 06:15 06:18 06:18 WBC 4.8 (3.8-10.6) k/uL RBC 2.94 L (3.80-5.40) m/uL Hgb 9.2 L (11.4-16.0) gm/dL Hct 28.3 L (34.0-46.0) % MCV 96.3 (80.0-100.0) fL MCH 31.2 (25.0-35.0) pg MCHC 32.4 (31.0-37.0) g/dL RDW 15.2 (11.5-15.5) % Plt Count 154 (150-450) k/uL MPV 9.4 Neutrophils % 57 % Lymphocytes % 33 % Monocytes % 6 % Eosinophils % 0 % Basophils % 1 % Neutrophils # 2.8 (1.3-7.7) k/uL Lymphocytes # 1.6 (1.0-4.8) k/uL Monocytes # 0.3 (0-1.0) k/uL Eosinophils # 0.0 (0-0.7) k/uL Basophils # 0.0 (0-0.2) k/uL PT 9.6 (9.0-12.0) sec INR 0.9 (<1.2) APTT 22.7 (22.0-30.0) sec Sodium (137-145) mmol/L Potassium (3.5-5.1) mmol/L Chloride (98-107) mmol/L Carbon Dioxide (22-30) mmol/L Anion Gap mmol/L BUN (7-17) mg/dL Creatinine (0.52-1.04) mg/dL Est GFR (CKD-EPI)AfAm (>60 ml/min/1.73 sqM) Est GFR (CKD-EPI)NonAf (>60 ml/min/1.73 sqM) Glucose (74-99) mg/dL Calcium (8.4-10.2) mg/dL Magnesium (1.6-2.3) mg/dL Total Bilirubin (0.2-1.3) mg/dL AST (14-36) U/L ALT (4-34) U/L Alkaline Phosphatase (38-126) U/L Troponin I (0.000-0.034) ng/mL Total Protein (6.3-8.2) g/dL Albumin (3.5-5.0) g/dL Urine Color Urine Appearance (Clear) Urine pH (5.0-8.0) Ur Specific [place] (1.001-1.035) Urine Protein (Negative) Urine Glucose (UA) (Negative) Urine Ketones (Negative) Urine Blood (Negative) Urine Nitrite (Negative) Urine Bilirubin (Negative) Urine Urobilinogen (<2.0) mg/dL Ur Leukocyte Esterase (Negative) Stool Occult Blood (Negative) Influenza Type A (PCR) Not Detected (Not Detectd) Influenza Type B (PCR) Not Detected (Not Detectd) RSV (PCR) Not Detected (Not Detectd) SARS-CoV-2 (PCR) Not Detected (Not Detectd) 08/02/21 08/02/21 08/02/21 Range/Units 06:18 06:18 07:53 WBC (3.8-10.6) k/uL RBC (3.80-5.40) m/uL Hgb (11.4-16.0) gm/dL Hct (34.0-46.0) % MCV (80.0-100.0) fL MCH (25.0-35.0) pg MCHC (31.0-37.0) g/dL RDW (11.5-15.5) % Plt Count (150-450) k/uL MPV Neutrophils % % Lymphocytes % % Monocytes % % Eosinophils % % Basophils % % Neutrophils # (1.3-7.7) k/uL Lymphocytes # (1.0-4.8) k/uL Monocytes # (0-1.0) k/uL Eosinophils # (0-0.7) k/uL Basophils # (0-0.2) k/uL PT (9.0-12.0) sec INR (<1.2) APTT (22.0-30.0) sec Sodium 138 (137-145) mmol/L Potassium 4.0 (3.5-5.1) mmol/L Chloride 111 H (98-107) mmol/L Carbon Dioxide 25 (22-30) mmol/L Anion Gap 2 mmol/L BUN 18 H (7-17) mg/dL Creatinine 1.05 H (0.52-1.04) mg/dL Est GFR (CKD-EPI)AfAm 57 (>60 ml/min/1.73 sqM) Est GFR (CKD-EPI)NonAf 50 (>60 ml/min/1.73 sqM) Glucose 88 (74-99) mg/dL Calcium 7.9 L (8.4-10.2) mg/dL Magnesium 2.3 (1.6-2.3) mg/dL Total Bilirubin 0.3 (0.2-1.3) mg/dL AST 18 (14-36) U/L ALT 12 (4-34) U/L Alkaline Phosphatase 68 (38-126) U/L Troponin I <0.012 (0.000-0.034) ng/mL Total Protein 5.0 L (6.3-8.2) g/dL Albumin 2.7 L (3.5-5.0) g/dL Urine Color Light Yellow Urine Appearance Clear (Clear) Urine pH 7.0 (5.0-8.0) Ur Specific [place] 1.008 (1.001-1.035) Urine Protein Negative (Negative) Urine Glucose (UA) Negative (Negative) Urine Ketones Negative (Negative) Urine Blood Negative (Negative) Urine Nitrite Negative (Negative) Urine Bilirubin Negative (Negative) Urine Urobilinogen <2.0 (<2.0) mg/dL Ur Leukocyte Esterase Negative (Negative) Stool Occult Blood (Negative) Influenza Type A (PCR) (Not Detectd) Influenza Type B (PCR) (Not Detectd) RSV (PCR) (Not Detectd) SARS-CoV-2 (PCR) (Not Detectd) 08/02/21 Range/Units 08:22 WBC (3.8-10.6) k/uL RBC (3.80-5.40) m/uL Hgb (11.4-16.0) gm/dL Hct (34.0-46.0) % MCV (80.0-100.0) fL MCH (25.0-35.0) pg MCHC (31.0-37.0) g/dL RDW (11.5-15.5) % Plt Count (150-450) k/uL MPV Neutrophils % % Lymphocytes % % Monocytes % % Eosinophils % % Basophils % % Neutrophils # (1.3-7.7) k/uL Lymphocytes # (1.0-4.8) k/uL Monocytes # (0-1.0) k/uL Eosinophils # (0-0.7) k/uL Basophils # (0-0.2) k/uL PT (9.0-12.0) sec INR (<1.2) APTT (22.0-30.0) sec Sodium (137-145) mmol/L Potassium (3.5-5.1) mmol/L Chloride (98-107) mmol/L Carbon Dioxide (22-30) mmol/L Anion Gap mmol/L BUN (7-17) mg/dL Creatinine (0.52-1.04) mg/dL Est GFR (CKD-EPI)AfAm (>60 ml/min/1.73 sqM) Est GFR (CKD-EPI)NonAf (>60 ml/min/1.73 sqM) Glucose (74-99) mg/dL Calcium (8.4-10.2) mg/dL Magnesium (1.6-2.3) mg/dL Total Bilirubin (0.2-1.3) mg/dL AST (14-36) U/L ALT (4-34) U/L Alkaline Phosphatase (38-126) U/L Troponin I (0.000-0.034) ng/mL Total Protein (6.3-8.2) g/dL Albumin (3.5-5.0) g/dL Urine Color Urine Appearance (Clear) Urine pH (5.0-8.0) Ur Specific [place] (1.001-1.035) Urine Protein (Negative) Urine Glucose (UA) (Negative) Urine Ketones (Negative) Urine Blood (Negative) Urine Nitrite (Negative) Urine Bilirubin (Negative) Urine Urobilinogen (<2.0) mg/dL Ur Leukocyte Esterase (Negative) Stool Occult Blood Negative (Negative) Influenza Type A (PCR) (Not Detectd) Influenza Type B (PCR) (Not Detectd) RSV (PCR) (Not Detectd) SARS-CoV-2 (PCR) (Not Detectd) - EKG Data EKG Comments: EKG done at 6:02 AM and read by the ED attending physician reveals normal sinus rhythm with a rate of 83. Normal intervals. Normal axis. No evidence of acute ST or T-wave changes. Possible left atrial enlargement. Disposition Clinical Impression: Closed head injury, Contusion of right knee, Contusion of occipital region of scalp, Fall, Normocytic anemia Disposition: HOME SELF-CARE Instructions (If sedation given, give patient instructions): Fall Prevention for Older Adults (ED), Head Injury (ED), Anemia (ED), Knee Pain (ED) Additional Instructions: Coronary with the mobility architect manager at [facility] to get the patient into the full care side. Return to the ER anytime if symptoms worsen in the prompt arise. Call and make a follow-up appointment with the regular physician. Hemoglobin will need be monitored. Patient may need further testing as an outpatient. Follow-up with your regular physician as directed. Return to the ER immediately if any symptoms worsen, new symptoms arise, or any other problems develop. The case was discussed in detail with ED attending physician. Presentation, findings, treatment plan discussed in detail. Follow-up with your regular physician as directed. Return to the ER immediately if any symptoms worsen, new symptoms arise, or any other problems develop. Prescriptions: Acetaminophen [Tylenol] 500 mg PO Q6H PRN #24 tab PRN Reason: Pain Is patient prescribed a controlled substance at d/c from ED?: No Referrals: Anthony English MD [Primary Care Provider] - 1-2 days Time of Disposition: 09:23
--- NOTE | 2021-08-02 07:23 | CT ---
EXAMINATION TYPE: CT brain kal acevedo con DATE OF EXAM: 08/02/2021 COMPARISON: NONE HISTORY: Fall, Head Injury with headache and neck pain CT DLP: 1292.8 mGycm. Automated Exposure Control for Dose Reduction was Utilized. TECHNIQUE: CT scan of the head and cervical spine are performed without contrast. FINDINGS: There is no acute intracranial hemorrhage or midline shift identified. Mild/moderate vent ricular and sulcal prominence. Mild low attenuation in the periventricular white matter. The globes a re intact and the visualized sinuses are clear. Patchy soft tissue density consistent with cerumen in the bilateral external auditory canals. There is small to moderate sized high right parietal occipit al lobe acute scalp hematoma. Cervical spine is visualized in its entirety from C1 through upper thoracic levels and demonstrates s atisfactory alignment without evidence of acute fracture or dislocation. Prevertebral soft tissue ap pears within normal limits. The C1-C2 articulation is within normal limits on the coronal images. V ertebral body heights are maintained. Moderate disc space narrowing with moderate to severe spurring C5-C6 level. Moderate disc space narrowing and spurring C6-C7 level. Mild disc space narrowing with m oderate anterior spurring C7-T1 level. Posterior spur disc complexes efface the anterior thecal sac C 4-C5 through C6-C7 levels on sagittal and axial images. Review of axial images shows multilevel facet degenerative changes contributing to multilevel bilateral neural foraminal narrowing for reference i s the C3-C4 level axial image 38. The thyroid gland appears within normal limits. Lung apices show no pneumothorax. Mild calcified change right carotid bulb. IMPRESSION: 1. There is no acute fracture or dislocation evident in the cervical spine. 2. No acute intracranial hemorrhage or midline shift is seen. Small to moderate-size high right parie emma occipital acute scalp hematoma.
--- NOTE | 2021-08-02 07:34 | XR ---
EXAMINATION TYPE: XR knee 4V RT DATE OF EXAM: 08/02/2021 COMPARISON: 07/21/2019 HISTORY: Knee pain after falling TECHNIQUE: 4 view right knee FINDINGS: There is loss of the medial compartment joint space. Medial femoral condylar and tibial dyan teau spurring is present. Mild lateral tibial plateau spurring is present. Deformity is noted along t he medial tibial plateau from advanced degenerative changes. Patellofemoral joint space narrowing is present. Joint effusion is not evident. Superficial soft tissue swelling appears to be present. Follow up exams can be performed 7-10 days from acute trauma for continued pain. IMPRESSION: 1. Advanced degenerative changes right knee especially noted through the medial compartment and davies llofemoral joint space. 2. Soft tissue swelling medial knee. 3. Exam appears stable from comparison.
[2021-08-02] MEDS ORDERED: ACETAMINOPHEN TAB 500 MG TAB PO STA (07:35)
[2021-08-02 08:23] LABS: Appearance,Urine Clear (Clear); Bilirubin,Urine Negative (Negative); Blood,Urine Negative (Negative); Color,Urine Light Yellow; Glucose,Urine (UA) Negative (Negative); Ketones,Urine Negative (Negative); Leukocyte Esterase,Urine Negative (Negative); Nitrite,Urine Negative (Negative); Protein,Urine Negative (Negative); Specific Gravity,Urine 1.008 (1.001-1.035); Urobilinogen,Urine <2.0 mg/dL (<2.0)
[2021-08-02 10:15] VITALS: BP 142/71; PULSE 79; RESP 16; TEMP 97.8
== END 2021-08-02 10:24 | disposition home or self-care (01) ==
LOC: EC 05:52
DX: S09.90XA Unspecified injury of head, initial encounter (principal); S80.01XA Contusion of right knee, initial encounter; S00.03XA Contusion of scalp, initial encounter; D64.9 Anemia, unspecified; E07.9 Disorder of thyroid, unspecified; F41.9 Anxiety disorder, unspecified; F25.9 Schizoaffective disorder, unspecified; Z88.1 Allergy status to other antibiotic agents; Z85.41 Personal history of malignant neoplasm of cervix uteri; Z85.3 Personal history of malignant neoplasm of breast; Z20.822 Contact with and (suspected) exposure to COVID-19; W01.0XXA Fall on same level from slipping, tripping and stumbling without subsequent striking against object, initial encounter
CPT/HCPCS: 36415; 70450; 71045; 72125; 72170; 80053; 81003; 82272; 83735; 84484; 85025; 85610; 85730; 87636; 93005; 99285

== ENCOUNTER 2021-08-07 09:46 | Observation (INO) | payer MEDICARE, BC ==
--- NOTE | 2021-08-07 10:24 | ED ---
General Adult HPI - General Chief complaint: Chest Pain Stated complaint: Chest Pain Time Seen by Provider: 08/07/21 09:49 Source: patient Mode of arrival: ambulatory Limitations: no limitations - History of Present Illness Initial comments: 81-year-old female with past nuchal history of breast cancer, thyroid disorder presents emergency Department with chest pain. States that she was at home and awoke this morning to go to the bathroom. She had sudden onset of chest pain it's band across her chest wall. States it is sharp in nature and only lasted for 30 seconds. She denies any provocative factors. Does not take any medications for her symptoms. Denies associated shortness of breath, nausea or diaphoresis. Denies previous history of cardiac disease. Patient called and EMS for herself. Denies any chest pain upon arrival. No calf pain or swelling. No history of DVT or PE. No recent fevers, chills or cough. No other alleviating, precipitating or modifying factors - Related Data Home Medications Medication Instructions Recorded Confirmed Levothyroxine Sodium [Synthroid] 112 mcg PO DAILY 09/28/16 08/07/21 cloZAPine [Clozaril] 200 mg PO HS@199909/28/16 08/07/21 Metoprolol Succinate (ER) [Toprol 25 mg PO DAILY 03/16/21 08/07/21 XL] Multivitamins, Thera [Multivitamin 1 tab PO DAILY 03/16/21 08/07/21 (formulary)] polyethylene glycoL 3350 [Miralax] 17 gm PO DAILY 03/16/21 08/07/21 rOPINIRole HCL [Requip] 0.25 mg PO DAILY 03/16/21 08/07/21 Acetaminophen Tab [Tylenol] 325 mg PO AC-BID@1200,1800 08/02/21 08/07/21 Docusate [Colace] 100 mg PO DAILY PRN 08/02/21 08/07/21 Omeprazole 20 mg PO DAILY 08/02/21 08/07/21 Oxybutynin Chloride [Ditropan] 10 mg PO HS 08/02/21 08/07/21 Potassium Chloride ER [K-Dur 20] 20 meq PO DAILY@1200 08/02/21 08/07/21 cloZAPine [Clozaril] 100 mg PO AC-BID@1200,1600 08/02/21 08/07/21 Ascorbic Acid [Vitamin C] 1,000 mg PO DAILY 08/07/21 08/07/21 Azithromycin [Zithromax Z-pack (6 See Taper PO DAILY 08/07/21 08/07/21 tabs)] Fexofenadine HCl [Kacie Allergy] 180 mg PO DAILY 08/07/21 08/07/21 Zinc 50 mg PO DAILY 08/07/21 08/07/21 Previous Rx's Medication Instructions Recorded Acetaminophen [Tylenol] 500 mg PO Q6H PRN #24 tab 08/02/21 Allergies Allergy/AdvReac Type Severity Reaction Status Date / Time amoxicillin [From Augmentin] Allergy Rash/Hives Verified 08/07/21 11:58 capsaicin [From Zostrix] Allergy Rash/Hives Verified 08/07/21 11:58 clavulanic acid Allergy Rash/Hives Verified 08/07/21 11:58 [From Augmentin] Review of Systems ROS Statement: Those systems with pertinent positive or pertinent negative responses have been documented in the HPI. ROS Other: All systems not noted in ROS Statement are negative. Past Medical History Past Medical History: Cancer, Memory Impairment, Seizure Disorder, Thyroid Disorder Additional Past Medical History / Comment(s): hx. cervical cancer, dizzy spells & falling, breast ca History of Any Multi-Drug Resistant Organisms: None Reported Past Surgical History: Breast Surgery Additional Past Surgical History / Comment(s): surg for breast abscess x2, lumpectomy left Past Anesthesia/Blood Transfusion Reactions: No Reported Reaction Past Psychological History: Anxiety, Schizophrenia Smoking Status: Never smoker Past Alcohol Use History: None Reported Past Drug Use History: None Reported - Past Family History Mother Family Medical History: No Reported History General Exam Limitations: no limitations Course Vital Signs 08/07/21 08/07/21 08/07/21 09:58 09:59 10:00 Temperature 98 F Pulse Rate 80 89 90 Respiratory 18 Rate Blood Pressure 143/80 153/80 153/80 O2 Sat by Pulse 99 97 97 Oximetry 08/07/21 08/07/21 08/07/21 10:30 11:00 11:30 Temperature Pulse Rate 86 88 Respiratory Rate Blood Pressure 146/79 145/69 162/90 O2 Sat by Pulse 97 99 Oximetry 08/07/21 08/07/21 08/07/21 12:30 13:00 13:30 Temperature Pulse Rate 86 85 83 Respiratory Rate Blood Pressure 154/80 154/79 154/82 O2 Sat by Pulse 97 97 99 Oximetry 08/07/21 14:00 Temperature Pulse Rate 84 Respiratory Rate Blood Pressure 150/79 O2 Sat by Pulse 96 Oximetry EKG Findings - EKG Comments: EKG Findings:: EKG demonstrates normal sinus rhythm with a ventricular rate of 90. DE interval 138. QRS 82. QTC 442. No acute ST segment elevations or depressions concerning for ischemic changes Medical Decision Making - Medical Decision Making Upon arrival patient was placed into room 2. She is pain-free at this time. She is placed on continuous pulse ox and cardiac monitoring. 12-lead EKG was obtained which demonstrates no acute ST segment elevations. Laboratory studies are conducted and the patient went for a chest x-ray. Laboratory studies are reviewed. Hemoglobin 8.9. Troponin is negative. Covid not detected. Chest x- ray demonstrates no acute cardio opponent disease. Patient does have obvious facial ecchymosis for which she states she sustained during a fall 3 days ago. She denies losing consciousness. Because of this identifiable injury she is sent over for a CT of her brain and cervical spine which demonstrates no acute cranial process. Right posterior scalp hematoma. No evidence of cervical spine fracture. I did recommend admission to the hospital in order to trend the lennie ent's troponins reports patient did agree to. Spoke with Dr. davis who agree to admit the patient. She is currently awaiting a bed on the floor - Lab Data Result diagrams: 08/07/21 10:09 08/07/21 10:09 Lab Results 08/07/21 08/07/21 08/07/21 Range/Units 10:09 10:09 10:09 WBC 3.9 (3.8-10.6) k/uL RBC 2.92 L (3.80-5.40) m/uL Hgb 8.9 L (11.4-16.0) gm/dL Hct 27.8 L (34.0-46.0) % MCV 95.0 (80.0-100.0) fL MCH 30.5 (25.0-35.0) pg MCHC 32.0 (31.0-37.0) g/dL RDW 14.6 (11.5-15.5) % Plt Count 143 L (150-450) k/uL MPV 9.5 Neutrophils % 58 % Lymphocytes % 34 % Monocytes % 6 % Eosinophils % 0 % Basophils % 0 % Neutrophils # 2.2 (1.3-7.7) k/uL Lymphocytes # 1.3 (1.0-4.8) k/uL Monocytes # 0.2 (0-1.0) k/uL Eosinophils # 0.0 (0-0.7) k/uL Basophils # 0.0 (0-0.2) k/uL PT 10.0 (9.0-12.0) sec INR 0.9 (<1.2) APTT 24.7 (22.0-30.0) sec Sodium 140 (137-145) mmol/L Potassium 4.1 (3.5-5.1) mmol/L Chloride 110 H (98-107) mmol/L Carbon Dioxide 28 (22-30) mmol/L Anion Gap 2 mmol/L BUN 14 (7-17) mg/dL Creatinine 0.83 (0.52-1.04) mg/dL Est GFR (CKD-EPI)AfAm 76 (>60 ml/min/1.73 sqM) Est GFR (CKD-EPI)NonAf 66 (>60 ml/min/1.73 sqM) Glucose 79 (74-99) mg/dL Calcium 8.4 (8.4-10.2) mg/dL Magnesium 2.2 (1.6-2.3) mg/dL Total Bilirubin 0.4 (0.2-1.3) mg/dL AST 26 (14-36) U/L ALT 17 (4-34) U/L Alkaline Phosphatase 65 (38-126) U/L Troponin I (0.000-0.034) ng/mL NT-Pro-B Natriuret Pep pg/mL Total Protein 5.2 L (6.3-8.2) g/dL Albumin 2.8 L (3.5-5.0) g/dL Lipase 26 (23-300) U/L 08/07/21 08/07/21 Range/Units 10:09 10:09 WBC (3.8-10.6) k/uL RBC (3.80-5.40) m/uL Hgb (11.4-16.0) gm/dL Hct (34.0-46.0) % MCV (80.0-100.0) fL MCH (25.0-35.0) pg MCHC (31.0-37.0) g/dL RDW (11.5-15.5) % Plt Count (150-450) k/uL MPV Neutrophils % % Lymphocytes % % Monocytes % % Eosinophils % % Basophils % % Neutrophils # (1.3-7.7) k/uL Lymphocytes # (1.0-4.8) k/uL Monocytes # (0-1.0) k/uL Eosinophils # (0-0.7) k/uL Basophils # (0-0.2) k/uL PT (9.0-12.0) sec INR (<1.2) APTT (22.0-30.0) sec Sodium (137-145) mmol/L Potassium (3.5-5.1) mmol/L Chloride (98-107) mmol/L Carbon Dioxide (22-30) mmol/L Anion Gap mmol/L BUN (7-17) mg/dL Creatinine (0.52-1.04) mg/dL Est GFR (CKD-EPI)AfAm (>60 ml/min/1.73 sqM) Est GFR (CKD-EPI)NonAf (>60 ml/min/1.73 sqM) Glucose (74-99) mg/dL Calcium (8.4-10.2) mg/dL Magnesium (1.6-2.3) mg/dL Total Bilirubin (0.2-1.3) mg/dL AST (14-36) U/L ALT (4-34) U/L Alkaline Phosphatase (38-126) U/L Troponin I <0.012 (0.000-0.034) ng/mL NT-Pro-B Natriuret Pep 339 pg/mL Total Protein (6.3-8.2) g/dL Albumin (3.5-5.0) g/dL Lipase (23-300) U/L Disposition Clinical Impression: Chest pain Disposition: ADMITTED IP TO THIS [facility] Condition: Stable Is patient prescribed a controlled substance at d/c from ED?: No Decision to Admit Reason: Admit from EC Decision Date: 08/07/21 Decision Time: 13:04
[2021-08-07 10:25] LABS: Basophils % (A) 0 %; Eosinophils % (A) 0 %; HCT 27.8 % (34.0-46.0); HGB 8.9 gm/dL (11.4-16.0); Lymphocytes # (A) 1.3 k/uL (1.0-4.8); Lymphocytes % (A) 34 %; MCH 30.5 pg (25.0-35.0); Mean Platelet Volume 9.5; Monocytes # (A) 0.2 k/uL (0-1.0); Monocytes % (A) 6 %; Neutrophils # (A) 2.2 k/uL (1.3-7.7); Neutrophils % (A) 58 %; Platelet Count 143 k/uL (150-450); RBC 2.92 m/uL (3.80-5.40); RDW 14.6 % (11.5-15.5); WBC 3.9 k/uL (3.8-10.6)
--- NOTE | 2021-08-07 10:28 | XR ---
EXAMINATION TYPE: XR chest 2V DATE OF EXAM: 08/07/2021 10:23 AM COMPARISON:Multiple radiographs, with the most recent on 2021 TECHNIQUE: Frontal and lateral views of the chest. CLINICAL INDICATION:Female, 81 years old with history of Chest Pain; FINDINGS: Lungs/Pleura: There is no evidence of pleural effusion, focal consolidation, or pneumothorax. Pulmonary vascularity: Unremarkable. Heart/mediastinum: Cardiomediastinal silhouette is unremarkable. Musculoskeletal: No acute osseous pathology. IMPRESSION: No acute cardiopulmonary disease/process. Stable exam.
[2021-08-07 10:37] LABS: Albumin 2.8 g/dL (3.5-5.0); Calcium 8.4 mg/dL (8.4-10.2); Magnesium 2.2 mg/dL (1.6-2.3); Potassium 4.1 mmol/L (3.5-5.1); Total Bilirubin 0.4 mg/dL (0.2-1.3); Total Protein 5.2 g/dL (6.3-8.2)
[2021-08-07 10:46] LABS: INR 0.9 (<1.2); Partial Thromboplastin Time 24.7 sec (22.0-30.0)
--- NOTE | 2021-08-07 12:32 | CT ---
EXAMINATION TYPE: CT brain cspine wo con CT DLP: 1278.5 mGycm, Automated exposure control for dose reduction was used. DATE OF EXAM: 08/07/2021 12:05 PM COMPARISON: CT brain 08/02/2021. CLINICAL INDICATION:Female, 81 years old with history of fall, facial range; FALL, FACIAL CONTUSIONS- LEFT SIDE TECHNIQUE: Brain: Multiple axial CT images of the brain were obtained without IV contrast. Cspine: Axial CT images from the skull base to the inferior aspect of T2 we obtained without intraven ous contrast. Coronal and sagittal reformatted images were also reviewed. FINDINGS: Brain: Extra-axial spaces: No abnormal extra-axial fluid collections. Ventricular system: Within normal limits Cerebral parenchyma: No acute intraparenchymal hemorrhage or mass effect. The cho-white junction is well differentiated. Cerebellum: Unremarkable. Mass effect: No evidence of midline shift. Intracranial vasculature: unremarkable Soft tissues: A posterior scalp hematoma measuring up to 7.8 cm x 1.9 cm. Calvarium/osseous structures: No depressed skull fracture. Paranasal sinuses and mastoid air cells: Clear. Visualized orbits: Bilateral aphakia Cervical spine: Fracture: None. Osseous structures: Multilevel degenerative disc disease changes with endplate spurring and disc oste ophyte complex's. Vertebral alignment: Within normal limits. Spinal canal/Neural Foramina: No evidence of significant spinal canal narrowing. No evidence of signi ficant neural foramina narrowing. Neck soft tissues: Prevertebral soft tissues are within normal limits. Other: The airway is patent. The lung apices are clear. IMPRESSION: 1. No acute intracranial process. 2. Right posterior scalp hematoma 3. No evidence of cervical spine fracture. 4. Moderate multilevel degenerative disc disease.
[2021-08-07] MEDS ORDERED: NALOXONE 0.4 MG/ML 1 ML VIAL IV PRN (13:04)
--- NOTE | 2021-08-07 14:34 | P.CRDCN ---
History of Present Illness Consult date: 08/07/21 Consult reason: chest pain History of present illness: 81-year-old lady with history of hypertension comes to Hospital complaining of chest pain. She states that she had a discomfort that went across her chest mild to moderate intensity and at rest. It happened last night. She thought somebody was in her home got up and walked around and saw that there was no one. Some of her symptoms seem to be related to anxiety. At the time of my evaluation she is pain-free. EKG does not reveal ischemic changes 1 set of troponin is negative There is no prior history of coronary artery disease or congestive heart failure Constitutional: Denies chills. Denies fever. Patient had anxiety Eyes: Denies blurred vision. Denies pain. Ears, nose, mouth and throat: Denies headache. Denies sore throat. Cardiovascular: Patient had chest pain Denies shortness of breath. Respiratory: Denies cough. Gastrointestinal: Denies abdominal pain. Denies diarrhea. Denies nausea. Denies vomiting. Musculoskeletal: Denies myalgias. Integumentary: Denies pruritus. Denies rash. Neurological: Denies numbness. Denies weakness. Psychiatric: . Denies depression. Endocrine: Denies fatigue. Denies weight change. Genitourinary: Denies burning, hematuria, frequency of urination. Hematological: No anemia or excess bleeding. General: The patient is awake and alert, in no distress, and does not appear acutely ill. Skin: Skin is warm and dry and no rashes or lesions are noted. Eye: Pupils are equal, round and reactive to light, extra-ocular movements are intact; there is normal conjunctiva bilaterally. Ears, nose, mouth and throat: There are moist mucous membranes and no oral lesions. Neck: The neck is supple, there is no tenderness or JVD. Cardiovascular: There is a regular rate and rhythm. Ejection systolic murmur in the aortic area, rub or gallop is appreciated. Respiratory: Lungs are clear to auscultation, respirations are non-labored, br eath sounds are equal. Gastrointestinal: Soft, non-distended, non-tender abdomen without masses or organomegaly noted. There is no rebound or guarding present. Bowel sounds are unremarkable. Back: There is no tenderness to palpation in the midline. There is no obvious deformity. Musculoskeletal: Normal ROM, no tenderness, There is no pedal edema. There is no calf tenderness or swelling. Extremities: No edema. Vascular: Femoral pulse is normal. Posterior tibial pulses are normal .Dorsalis pedis is palpable. Neurological: CN II-XII intact. There are no obvious motor or sensory deficits. Speech is normal. Psychiatric: Cooperative, appropriate mood & affect, normal judgment. Assessment and plan: Precordial chest pain New-onset atypical probably related to anxiety and musculoskeletal EKG doesn't reveal ischemic changes We will obtain cardiac enzymes and if they are negative discharge her home and arrange for an outpatient echo and stress test Past Medical History Past Medical History: Cancer, Memory Impairment, Seizure Disorder, Thyroid Disorder Additional Past Medical History / Comment(s): hx. cervical cancer, dizzy spells & falling, breast ca History of Any Multi-Drug Resistant Organisms: None Reported Past Surgical History: Breast Surgery Additional Past Surgical History / Comment(s): surg for breast abscess x2, lumpectomy left Past Anesthesia/Blood Transfusion Reactions: No Reported Reaction Past Psychological History: Anxiety, Schizophrenia Smoking Status: Never smoker Past Alcohol Use History: None Reported Past Drug Use History: None Reported - Past Family History Mother Family Medical History: No Reported History Medications and Allergies Home Medications Medication Instructions Recorded Confirmed Type Levothyroxine Sodium [Synthroid] 112 mcg PO DAILY 09/28/16 08/07/21 History cloZAPine [Clozaril] 200 mg PO HS@199909/28/16 08/07/21 History Metoprolol Succinate (ER) [Toprol 25 mg PO DAILY 03/16/21 08/07/21 History XL] Multivitamins, Thera [Multivitamin 1 tab PO DAILY 03/16/21 08/07/21 History (formulary)] polyethylene glycoL 3350 [Miralax] 17 gm PO DAILY 03/16/21 08/07/21 History rOPINIRole HCL [Requip] 0.25 mg PO DAILY 03/16/21 08/07/21 History Acetaminophen Tab [Tylenol] 325 mg PO AC-BID@1200,1800 08/02/21 08/07/21 History Acetaminophen [Tylenol] 500 mg PO Q6H PRN #24 tab 08/02/21 08/07/21 Rx Docusate [Colace] 100 mg PO DAILY PRN 08/02/21 08/07/21 History Omeprazole 20 mg PO DAILY 08/02/21 08/07/21 History Oxybutynin Chloride [Ditropan] 10 mg PO HS 08/02/21 08/07/21 History Potassium Chloride ER [K-Dur 20] 20 meq PO DAILY@1200 08/02/21 08/07/21 History cloZAPine [Clozaril] 100 mg PO AC-BID@1200,1600 08/02/21 08/07/21 History Ascorbic Acid [Vitamin C] 1,000 mg PO DAILY 08/07/21 08/07/21 History Azithromycin [Zithromax Z-pack (6 See Taper PO DAILY 08/07/21 08/07/21 History tabs)] Fexofenadine HCl [Kacie Allergy] 180 mg PO DAILY 08/07/21 08/07/21 History Zinc 50 mg PO DAILY 08/07/21 08/07/21 History Allergies Allergy/AdvReac Type Severity Reaction Status Date / Time amoxicillin [From Augmentin] Allergy Rash/Hives Verified 08/07/21 11:58 capsaicin [From Zostrix] Allergy Rash/Hives Verified 08/07/21 11:58 clavulanic acid Allergy Rash/Hives Verified 08/07/21 11:58 [From Augmentin] Physical Exam Vitals: Vital Signs Temp Pulse Resp BP Pulse Ox 08/07/21 14:00 84 150/79 96 08/07/21 13:30 83 154/82 99 08/07/21 13:00 85 154/79 97 08/07/21 12:30 86 154/80 97 08/07/21 11:30 162/90 08/07/21 11:00 88 145/69 99 08/07/21 10:30 86 146/79 97 08/07/21 10:00 90 153/80 97 08/07/21 09:59 89 153/80 97 08/07/21 09:58 98 F 80 18 143/80 99 Intake and Output 08/06/21 08/07/21 08/07/21 22:59 06:59 14:59 Other: Weight 61.235 kg Results 08/07/21 10:09 08/07/21 10:09 Cardiac Enzymes 08/07/21 08/07/21 Range/Units 10:09 10:09 AST 26 (14-36) U/L Troponin I <0.012 (0.000-0.034) ng/mL Coagulation 08/07/21 Range/Units 10:09 PT 10.0 (9.0-12.0) sec APTT 24.7 (22.0-30.0) sec CBC 08/07/21 Range/Units 10:09 WBC 3.9 (3.8-10.6) k/uL RBC 2.92 L (3.80-5.40) m/uL Hgb 8.9 L (11.4-16.0) gm/dL Hct 27.8 L (34.0-46.0) % Plt Count 143 L (150-450) k/uL Comprehensive Metabolic Panel 08/07/21 Range/Units 10:09 Sodium 140 (137-145) mmol/L Potassium 4.1 (3.5-5.1) mmol/L Chloride 110 H (98-107) mmol/L Carbon Dioxide 28 (22-30) mmol/L BUN 14 (7-17) mg/dL Creatinine 0.83 (0.52-1.04) mg/dL Glucose 79 (74-99) mg/dL Calcium 8.4 (8.4-10.2) mg/dL AST 26 (14-36) U/L ALT 17 (4-34) U/L Alkaline Phosphatase 65 (38-126) U/L Total Protein 5.2 L (6.3-8.2) g/dL Albumin 2.8 L (3.5-5.0) g/dL Current Medications Generic Name Dose Route Start Last Admin Trade Name Freq PRN Reason Stop Dose Admin Naloxone HCl 0.2 mg 08/07/21 13:04 Naloxone 0.4 Mg/Ml 1 Ml Vial IV Q2M PRN Opioid Reversal Intake and Output 08/06/21 08/07/21 08/07/21 22:59 06:59 14:59 Other: Weight 61.235 kg Patient Weight 08/08/21 06:59 Weight 61.235 kg 08/07/21 10:09 08/07/21 10:09
[2021-08-07] MEDS ORDERED: DOCUSATE 100 MG CAP PO PRN (14:51)
[2021-08-07] MEDS: cloZAPine 100 MG TAB PO SCH (16:11)
[2021-08-07] MEDS ORDERED: ONDANSETRON 4 MG/2 ML VIAL IVP PRN (17:52)
[2021-08-07] MEDS ORDERED: LACTULOSE 20 GM/30 ML CUP PO PRN (17:52)
[2021-08-07] MEDS ORDERED: CALCIUM CARBONATE 500 MG CHEWABLE PO PRN (17:52)
[2021-08-07] MEDS ORDERED: MELATONIN 3 MG TABLET PO PRN (17:52)
--- NOTE | 2021-08-07 17:53 | P.HPIM ---
History of Present Illness H&P Date: 08/07/21 Chief Complaint: Chest pain This is a very pleasant 81-year-old patient, follows with visiting physicians Dr. Ferrara. Chronic stable medical conditions include seizure disorder, hypothyroid, anxiety disorder, cognitive impairment. Patient's baseline uses a walker. Lives at [facility]. Patient today after breakfast noticed a pain that went across below both the rib cages. She thinks it may have lasted about 30 seconds. Did not radiate anywhere. No nausea vomiting. No dizziness, lightheadedness no perspiration or shortness of breath. It did not recur. She was concerned about this being cardiac and decided to come in. No precipitating aggravating or relieving factor. Review of systems: GEN.: None EYES: None HEENT: None NECK: None RESPIRATORY: None CARDIOVASCULAR: None GASTROINTESTINAL: None GENITOURINARY: None MUSCULOSKELETAL: None LYMPHATICS: None HEMATOLOGICAL: None PSYCHIATRY: Forgetful NEUROLOGICAL: Does use a walker Past medical history to include: Cognitive impairment, seizure disorder, hypothyroid, cervical cancer, breast cancer anxiety, Social history: Lives at [facility] at [facility]. Does use a walker. No history of smoking and alcohol. Family history: Reviewed, noncontributory to presentation Physical examination: VITAL SIGNS: 98, 80, 18, 143/80, 99% room air GENERAL: BMI 28.2, reclining in bed, awake, comfortable. EYES: Pupils equal. Conjunctiva normal. HEENT: External appearance of nose and ears normal, oral cavity grossly normal. NECK: JVD not raised; masses not palpable. HEART: First and second heart sounds are normal; no edema. LUNGS: Respiratory rate normal; clear to auscultation. ABDOMEN: Soft, nontender, liver spleen not palpable, no masses palpable. PSYCH: Alert and oriented x3; mood and affect normal. Able tonsil simple questions MUSCULOSKELETAL:No Clubbing/cyanosis;muscles-grossly intact. Evidence of OA NEUROLOGICAL: Cranial nerves grossly intact; no facial asymmetry, power and sensation grossly intact. LYMPHATICS: No lymph nodes palpable in the axilla and neck INVESTIGATIONS, reviewed in the clinical context: White count 3.9 hemoglobin 8.9 platelets 143 sodium 140 potassium 4.1 BUN 14 creatinine 0.83 Troponin I less than 0.0122 Coronavirus [PCR]: Not detected EKG tracing personally reviewed by me-normal sinus rhythm. Rate 90 Chest x-ray film personally reviewed by me-some chronic prominent interstitium Assessment and plan: -Patient had pain lasting less than a minute below both the rib cage. This could be musculoskeletal/spasmodic. Doubt cardiac. Patient does consent for the same. We'll do serial cardiac enzymes telemetry. Activity as tolerated. -Mild cognitive impairment -Restless leg syndrome Recur 0.25 mg daily -Chronic urinary stress incontinence Ditropan 10 mg daily at bedtime -GERD Omeprazole 20 mg daily -Essential hypertension Toprol-XL 25 mg a day -Hypothyroid Synthroid) and 12 g daily -Primary osteoarthritis multiple joints bilaterally Tylenol as needed -Chronic schizophrenia Clozaril Patient placed on telemetry. Serial cardiac enzymes. Cardiac consultation. Home medications resumed. Care was discussed with the patient. Past Medical History Past Medical History: Cancer, Memory Impairment, Seizure Disorder, Thyroid Disorder Additional Past Medical History / Comment(s): hx. cervical cancer, dizzy spells & falling, breast ca History of Any Multi-Drug Resistant Organisms: None Reported Past Surgical History: Breast Surgery Additional Past Surgical History / Comment(s): surg for breast abscess x2, lumpectomy left Past Anesthesia/Blood Transfusion Reactions: No Reported Reaction Past Psychological History: Anxiety, Schizophrenia Smoking Status: Never smoker Past Alcohol Use History: None Reported Past Drug Use History: None Reported - Past Family History Mother Family Medical History: No Reported History Medications and Allergies Home Medications Medication Instructions Recorded Confirmed Type Levothyroxine Sodium [Synthroid] 112 mcg PO DAILY 09/28/16 08/07/21 History cloZAPine [Clozaril] 200 mg PO HS@199909/28/16 08/07/21 History Metoprolol Succinate (ER) [Toprol 25 mg PO DAILY 03/16/21 08/07/21 History XL] Multivitamins, Thera [Multivitamin 1 tab PO DAILY 03/16/21 08/07/21 History (formulary)] polyethylene glycoL 3350 [Miralax] 17 gm PO DAILY 03/16/21 08/07/21 History rOPINIRole HCL [Requip] 0.25 mg PO DAILY 03/16/21 08/07/21 History Acetaminophen Tab [Tylenol] 325 mg PO AC-BID@1200,1800 08/02/21 08/07/21 History Acetaminophen [Tylenol] 500 mg PO Q6H PRN #24 tab 08/02/21 08/07/21 Rx Docusate [Colace] 100 mg PO DAILY PRN 08/02/21 08/07/21 History Omeprazole 20 mg PO DAILY 08/02/21 08/07/21 History Oxybutynin Chloride [Ditropan] 10 mg PO HS 08/02/21 08/07/21 History Potassium Chloride ER [K-Dur 20] 20 meq PO DAILY@1200 08/02/21 08/07/21 History cloZAPine [Clozaril] 100 mg PO AC-BID@1200,1600 08/02/21 08/07/21 History Ascorbic Acid [Vitamin C] 1,000 mg PO DAILY 08/07/21 08/07/21 History Azithromycin [Zithromax Z-pack (6 See Taper PO DAILY 08/07/21 08/07/21 History tabs)] Fexofenadine HCl [Kacie Allergy] 180 mg PO DAILY 08/07/21 08/07/21 History Zinc 50 mg PO DAILY 08/07/21 08/07/21 History Allergies Allergy/AdvReac Type Severity Reaction Status Date / Time amoxicillin [From Augmentin] Allergy Rash/Hives Verified 08/07/21 11:58 capsaicin [From Zostrix] Allergy Rash/Hives Verified 08/07/21 11:58 clavulanic acid Allergy Rash/Hives Verified 08/07/21 11:58 [From Augmentin] Physical Exam Vitals: Vital Signs Temp Pulse Pulse Resp BP BP Pulse Ox 08/07/21 15:47 82 18 08/07/21 14:48 97.3 F L 82 18 159/82 99 08/07/21 14:00 84 150/79 96 08/07/21 13:30 83 154/82 99 08/07/21 13:00 85 154/79 97 08/07/21 12:30 86 154/80 97 08/07/21 11:30 162/90 08/07/21 11:00 88 145/69 99 08/07/21 10:30 86 146/79 97 08/07/21 10:00 90 153/80 97 08/07/21 09:59 89 153/80 97 08/07/21 09:58 98 F 80 18 143/80 99 Intake and Output 08/07/21 08/07/21 08/07/21 06:59 14:59 22:59 Other: Voiding Method Toilet Weight 61.235 kg Results CBC & Chem 7: 08/07/21 10:09 08/07/21 10:09 Labs: Abnormal Lab Results - Last 24 Hours (Table) 08/07/21 08/07/21 Range/Units 10:09 10:09 RBC 2.92 L (3.80-5.40) m/uL Hgb 8.9 L (11.4-16.0) gm/dL Hct 27.8 L (34.0-46.0) % Plt Count 143 L (150-450) k/uL Chloride 110 H (98-107) mmol/L Total Protein 5.2 L (6.3-8.2) g/dL Albumin 2.8 L (3.5-5.0) g/dL Thrombosis Risk Factor Assmnt - Choose All That Apply Any of the Below Risk Factors Present?: Yes Each Factor Represents 1 point: Obesity (BMI >25) Other Risk Factors: Yes Each Risk Factor Represents 3 Points: Age 75 years or older Other congenital or acquired thrombophilia - If yes, enter type in comment: No Thrombosis Risk Factor Assessment Total Risk Factor Score: 4 Thrombosis Risk Factor Assessment Level: Moderate Risk
[2021-08-07] MEDS: ACETAMINOPHEN TAB 325 MG TAB PO SCH (18:02)
[2021-08-07] MEDS: ENOXAPARIN 40 MG/0.4 ML SYRINGE SQ SCH (18:02)
[2021-08-07] MEDS ORDERED: cloZAPine 100 MG TAB PO SCH (20:00)
[2021-08-07] MEDS ORDERED: OXYBUTYNIN CHLORIDE 5 MG TAB PO SCH (21:00)
[2021-08-08] MEDS ORDERED: LEVOTHYROXINE 112 MCG TAB PO SCH (06:30)
[2021-08-08] MEDS: ENOXAPARIN 40 MG/0.4 ML SYRINGE SQ SCH (08:43)
[2021-08-08 08:55] VITALS: BP 149/84; PULSE 84; RESP 17; TEMP 98.4
[2021-08-08] MEDS ORDERED: ASCORBIC ACID 500 MG TAB PO SCH (09:00)
[2021-08-08] MEDS ORDERED: PANTOPRAZOLE 40 MG TABLET PO SCH (09:00)
[2021-08-08] MEDS ORDERED: ZINC SULFATE 220 MG CAP PO SCH (09:00)
[2021-08-08] MEDS ORDERED: polyethylene glycoL 3350 17 GM POWD.PACK PO SCH (09:00)
[2021-08-08] MEDS ORDERED: METOPROLOL SUCCINATE (ER) 25 MG TAB.ER.24H PO SCH (09:00)
[2021-08-08] MEDS ORDERED: MULTIVITAMINS, THERA 1 EACH TAB PO SCH (09:00)
[2021-08-08] MEDS ORDERED: LORATADINE 10 MG TAB PO SCH (09:00)
--- NOTE | 2021-08-08 09:14 | P.PN ---
Progress Note - Text Patient is doing well this morning. Does not have further episodes of chest pain difficulty in breathing or dizziness. On exam vital signs are stable there is no jugular venous distention chest is clear to auscultation percussion heart exam reveals first and second heart sounds systolic murmur at the apex abdomen is soft exam extremities did not reveal any edema per for pulses are felt Cardiac enzymes are negative Assessment and plan Chest pain VT ruled out Patient is stable for discharge needs outpatient stress test and echocardiogram
[2021-08-08 11:17] LABS: Basophils # (A) 0.04 X 10*3/uL (0.00-0.10); Basophils % (A) 0.8 %; Eosinophils # (A) 0.02 X 10*3/uL (0.04-0.35); Eosinophils % (A) 0.4 %; HCT 28.7 % (37.2-46.3); HGB 9.1 g/dL (12.0-15.0); Lymphocytes # (A) 2.07 X 10*3/uL (0.90-5.00); Lymphocytes % (A) 42.9 %; MCH 30.5 pg (27.0-32.0); MCHC 31.7 g/dL (32.0-37.0); MCV 96.3 fL (80.0-97.0); Mean Platelet Volume 11.5 fL (9.5-12.2); Monocytes # (A) 0.43 X 10*3/uL (0.20-1.00); Monocytes % (A) 8.9 %; Neutrophils # (A) 2.25 X 10*3/uL (1.80-7.70); Neutrophils % (A) 46.6 %; Platelet Count 150 X 10*3/uL (140-440); RBC 2.98 X 10*6/uL (4.10-5.20); RDW 15.1 % (11.5-14.5); WBC 4.83 X 10*3/uL (4.50-10.00)
[2021-08-08 11:19] LABS: African American GFR (CKD) 93.5 (60.0-200.0); Anion Gap 10.7 mmol/L (10.00-18.00); BUN/Creat Ratio 17.86 Ratio (12.00-20.00); Blood Urea Nitrogen 12.5 mg/dL (9.0-27.0); Calcium 8.4 mg/dL (8.7-10.3); Carbon Dioxide 25.3 mmol/L (20.0-27.5); Non-African American GFR(CKD) 80.7 (60.0-200.0); Potassium 3.9 mmol/L (3.5-5.5)
[2021-08-08] MEDS ORDERED: POTASSIUM CHLORIDE ER 20 MEQ TAB.ER PO SCH (12:00)
[2021-08-08] MEDS: ACETAMINOPHEN TAB 325 MG TAB PO SCH (12:04)
[2021-08-08] MEDS: cloZAPine 100 MG TAB PO SCH (12:04)
--- NOTE | 2021-08-08 14:00 | ECHOF ---
Referral Reason:cp MEASUREMENTS -------- HEIGHT: 127.0 cm WEIGHT: 61.2 kg BP: RVIDd: 3.0 cm (< 3.3) IVSd: 1.2 cm (0.6 - 1.1) LVIDd: 4.2 cm (3.9 - 5.3) LVPWd: 1.2 cm (0.6 - 1.1) IVSs: 1.4 cm LVIDs: 2.4 cm LVPWs: 2.1 cm LA Diam: 3.9 cm (2.7 - 3.8) LAESV Index (A-L): 52.28 ml/m Ao Diam: 2.8 cm (2.0 - 3.7) AV Cusp: 1.0 cm (1.5 - 2.6) LA Diam: 3.3 cm (2.7 - 3.8) MV EXCURSION: 12.408 mm (> 18.000) MV EF SLOPE: 80 mm/s (70 - 150) EPSS: 0.3 cm MV E Brett: 0.60 m/s MV DecT: 293 ms MV A Brett: 1.33 m/s MV E/A Ratio: 0.45 RAP: 5.00 mmHg RVSP: 29.25 mmHg FINDINGS -------- Sinus rhythm. This was a technically good study. The left ventricular size is normal. There is mild concentric left ventricular hypertrophy. Overa ll left ventricular systolic function is low-normal with, an EF between 50 - 55 %. The right ventricle is normal in size. LA is severely dilated >40 ml/m2 The right atrial size is normal. There is mild aortic valve sclerosis. There is mild aortic regurgitation. No mitral regurgitation. The peak and mean MV gradients are 15.13mmHg 4.64mmHg as measured by dopp ler. Oayv-[id number] mitral stenosis. Mild tricuspid regurgitation present. Right ventricular systolic pressure is normal at < 35 mmHg. There is no pulmonic regurgitation present. There is a small, generalized pericardial effusion present. CONCLUSIONS -------- 1. The left ventricular size is normal. 2. There is mild concentric left ventricular hypertrophy. 3. Overall left ventricular systolic function is low-normal with, an EF between 50 - 55 %. 4. The right ventricle is normal in size. 5. LA is severely dilated >40 ml/m2 6. The right atrial size is normal. 7. There is mild aortic valve sclerosis. 8. There is mild aortic regurgitation. 9. No mitral regurgitation. 10. The peak and mean MV gradients are 15.13mmHg 4.64mmHg as measured by doppler. 11. Ymza-gd-cmuspzvs mitral stenosis. 12. Mild tricuspid regurgitation present. 13. There is no pulmonic regurgitation present. 14. There is a small, generalized pericardial effusion present. [employer] DEVELOPER: Malissa Mason RDCS
--- NOTE | 2021-08-08 19:43 | P.DS ---
Providers Date of admission: 08/07/21 13:06 Expected date of discharge: 08/08/21 Attending physician: Roly Olivarez Consults: 08/07/21 13:05 Consult Physician Urgent Consulting Provider: [facility] Consult Reason/Comments: acute chest pain Do you want consulting provider notified?: Yes Primary care physician: [facility] Course: Chief Complaint: Chest pain This is a very pleasant 81-year-old patient, follows with visiting physicians Dr. Ferrara. Chronic stable medical conditions include seizure disorder, hypothyroid, anxiety disorder, cognitive impairment. Patient's baseline uses a walker. Lives at [facility]. Patient today after breakfast noticed a pain that went across below both the rib cages. She thinks it may have lasted about 30 seconds. Did not radiate anywhere. No nausea vomiting. No dizziness, lightheadedness no perspiration or shortness of breath. It did not recur. She was concerned about this being cardiac and decided to come in. No precipitating aggravating or relieving factor. August 08: Pain was felt to be noncardiac. Seen by cardiology. We'll follow the patient outpatient for possible further testing. Patient had no further symptoms. Discussed with the patient. Consultation: Dr. Wharton from cardiology Past medical history to include: Cognitive impairment, seizure disorder, hypothyroid, cervical cancer, breast cancer anxiety, Social history: Lives at [facility]. Does use a walker. No history of smoking and alcohol. Family history: Reviewed, noncontributory to presentation Physical examination: VITAL SIGNS: 98.4, 84, 17, 1 4984, 96% room air GENERAL: BMI 28.2, reclining in bed, awake, comfortable. EYES: Pupils equal. Conjunctiva normal. HEENT: External appearance of nose and ears normal, oral cavity grossly normal. NECK: JVD not raised; masses not palpable. HEART: First and second heart sounds are normal; no edema. LUNGS: Respiratory rate normal; clear to auscultation. ABDOMEN: Soft, nontender, liver spleen not palpable, no masses palpable. PSYCH: Alert and oriented x3; mood and affect normal. Able tonsil simple questions MUSCULOSKELETAL:No Clubbing/cyanosis;muscles-grossly intact. Evidence of OA INVESTIGATIONS, reviewed in the clinical context: 2-D echocardiogram: EF 50-45%. Nlww-sl-fkxdwidk mitral stenosis. White count 3.9 hemoglobin 8.9 platelets 143 sodium 140 potassium 4.1 BUN 14 creatinine 0.83 Troponin I less than 0.0123 Coronavirus [PCR]: Not detected EKG tracing personally reviewed by me-normal sinus rhythm. Rate 90 Chest x-ray film personally reviewed by me-some chronic prominent interstitium Assessment and plan: -Patient had pain lasting less than a minute below both the rib cage. Possible musculoskeletal/spasmodic. Negative troponin. We will follow up with cardiology as outpatient. -Mild to moderate mitral stenosis. Follow outpatient cardiology -Mild cognitive impairment -Restless leg syndrome Recur 0.25 mg daily -Chronic urinary stress incontinence Ditropan 10 mg daily at bedtime -GERD Omeprazole 20 mg daily -Essential hypertension Toprol-XL 25 mg a day -Hypothyroid Synthroid) and 12 g daily -Primary osteoarthritis multiple joints bilaterally Tylenol as needed -Chronic schizophrenia Clozaril Disposition: Independent living Plan - Discharge Summary Discharge Rx Participant: No New Discharge Prescriptions: Continue cloZAPine [Clozaril] 200 mg PO HS@1999 Levothyroxine Sodium [Synthroid] 112 mcg PO DAILY polyethylene glycoL 3350 [Miralax] 17 gm PO DAILY Potassium Chloride ER [K-Dur 20] 20 meq PO DAILY@1200 cloZAPine [Clozaril] 100 mg PO AC-BID@1200,1600 Omeprazole 20 mg PO DAILY Ascorbic Acid [Vitamin C] 1,000 mg PO DAILY Zinc 50 mg PO DAILY rOPINIRole HCL [Requip] 0.25 mg PO DAILY Multivitamins, Thera [Multivitamin (formulary)] 1 tab PO DAILY Metoprolol Succinate (ER) [Toprol XL] 25 mg PO DAILY Docusate [Colace] 100 mg PO DAILY PRN PRN Reason: Constipation Acetaminophen Tab [Tylenol] 325 mg PO AC-BID@1200,1800 Oxybutynin Chloride [Ditropan] 10 mg PO HS Acetaminophen [Tylenol] 500 mg PO Q6H PRN #24 tab PRN Reason: Pain Fexofenadine HCl [Kacie Allergy] 180 mg PO DAILY Discontinued Azithromycin [Zithromax Z-pack (6 tabs)] See Taper PO DAILY Discharge Medication List Levothyroxine Sodium [Synthroid] 112 mcg PO DAILY 09/28/16 [History] cloZAPine [Clozaril] 200 mg PO HS@199909/28/16 [History] Metoprolol Succinate (ER) [Toprol XL] 25 mg PO DAILY 03/16/21 [History] Multivitamins, Thera [Multivitamin (formulary)] 1 tab PO DAILY 03/16/21 [History] polyethylene glycoL 3350 [Miralax] 17 gm PO DAILY 03/16/21 [History] rOPINIRole HCL [Requip] 0.25 mg PO DAILY 03/16/21 [History] Acetaminophen Tab [Tylenol] 325 mg PO AC-BID@1200,1800 08/02/21 [History] Acetaminophen [Tylenol] 500 mg PO Q6H PRN #24 tab 08/02/21 [Rx] Docusate [Colace] 100 mg PO DAILY PRN 08/02/21 [History] Omeprazole 20 mg PO DAILY 08/02/21 [History] Oxybutynin Chloride [Ditropan] 10 mg PO HS 08/02/21 [History] Potassium Chloride ER [K-Dur 20] 20 meq PO DAILY@1200 08/02/21 [History] cloZAPine [Clozaril] 100 mg PO AC-BID@1200,1600 08/02/21 [History] Ascorbic Acid [Vitamin C] 1,000 mg PO DAILY 08/07/21 [History] Fexofenadine HCl [Kacie Allergy] 180 mg PO DAILY 08/07/21 [History] Zinc 50 mg PO DAILY 08/07/21 [History] Follow up Appointment(s)/Referral(s): Ashish Ferrara MD [Primary Care Provider] - 1-2 days [place] Yusuf MD [STAFF PHYSICIAN] - 1 Week (office will call you to set up appointment. )
== END 2021-08-08 13:05 | disposition home or self-care (01) ==
LOC: EC 09:46 → SUPCPDRO 09:46 → 6NMEDSUR 13:06
PROVIDERS: ADMIT Hospitalist; ATTEND Hospitalist
DX: R07.89 Other chest pain (principal); I05.0 Rheumatic mitral stenosis; G31.84 Mild cognitive impairment of uncertain or unknown etiology; F41.9 Anxiety disorder, unspecified; G40.909 Epilepsy, unspecified, not intractable, without status epilepticus; M50.30 Other cervical disc degeneration, unspecified cervical region; S00.83XA Contusion of other part of head, initial encounter; S00.03XA Contusion of scalp, initial encounter; W19.XXXA Unspecified fall, initial encounter; F20.9 Schizophrenia, unspecified; R07.2 Precordial pain; E03.9 Hypothyroidism, unspecified; G25.81 Restless legs syndrome; N39.3 Stress incontinence (female) (male); K21.9 Gastro-esophageal reflux disease without esophagitis; I10 Essential (primary) hypertension; M15.9 Polyosteoarthritis, unspecified; E66.9 Obesity, unspecified; Z68.28 Body mass index [BMI] 28.0-28.9, adult; Z20.822 Contact with and (suspected) exposure to COVID-19; Z79.890 Hormone replacement therapy; Z79.899 Other long term (current) drug therapy; Z88.0 Allergy status to penicillin; Z88.8 Allergy status to other drugs, medicaments and biological substances; Z91.81 History of falling; Z85.41 Personal history of malignant neoplasm of cervix uteri; Z85.3 Personal history of malignant neoplasm of breast; Z98.890 Other specified postprocedural states
CPT/HCPCS: 96372 ×2; 99285; 36415; 93005; 93306; 83880; 80053; 80048; 83690; 83735; 84484; 85025 ×2; 85610; 85730; 87635; 71046; 72125; 70450; G0378 ×2; J1650 ×2; S0136 ×2

== ENCOUNTER → 2021-10-06 | Outpatient (CLI) | payer MEDICARE, BC ==
--- NOTE | 2021-10-13 20:53 | HM ---
HOLTER MONITOR REPORT DATE OF SERVICE: October 06, 2021. INDICATION: Cardiac arrhythmia. The patient was monitored for 24 hours. The baseline rhythm appeared to be sinus with a minimum heart rate of 85, max 76 and average of 115 beats per minute. Ventricular ectopic events noted in less than 1% of the total beats count. Supraventricular ectopic events noted in less than 1% of the total beats count. No evidence of significant sinus pause or sinus arrest. No diary was attached to the study. CONCLUSION: 1. Sinus rhythm as a baseline mechanism. 2. Rare ventricular ectopic events. 3. Supraventricular ectopic events. 4. No significant sinus pause or sinus arrest. 5. No diary was attached to the study. MMODL / IJN: [id number] /
== END | disposition home or self-care (01) ==
LOC: RADECHMAIN 08:01
PROVIDERS: ATTEND Family Medicine
DX: I49.3 Ventricular premature depolarization (principal); I10 Essential (primary) hypertension
CPT/HCPCS: 93225; 93226

== ENCOUNTER 2022-06-19 10:42 | Emergency (ER) | payer MEDICARE, BC ==
[2022-06-19 11:07] VITALS: RESP 18; TEMP 97.9
--- NOTE | 2022-06-19 11:29 | ED ---
General Adult HPI - General Chief complaint: Dizziness Stated complaint: Dizziness Time Seen by Provider: 06/19/22 11:00 Source: EMS Mode of arrival: EMS Limitations: no limitations - History of Present Illness Initial comments: Dictation was produced using [employer] dictation software. please excuse any grammatical, word or spelling errors. Chief Complaint: 82-year-old female presents emergency department for episode of dizziness History of Present Illness: 82-year-old female with multiple comorbidities. She has history of memory impairment, seizure disorder and thyroid disease. She does have extensive history of dizziness and vertigo. She is prescribed Antivert. Patient was seen on the toilet when all of a sudden she expressing bout of dizziness. She was so dizzy that she was able to stand up. She pressed on her alert necklace and staff evaluated her and sent her to the emergency room. Family at the bedside believe that patient was seen here prematurely and she did not have enough time for the medications to work treat her dizziness. Patient states that since being in the ER she feels back to normal laying down. Patient has no other complaints. The ROS documented in this emergency department record has been reviewed and confirmed by me. Those systems with pertinent positive or negative responses have been documented in the HPI. All other systems are other negative and/or noncontributory. PHYSICAL EXAM: General Impression: Alert and oriented x3, not in acute distress HEENT: Normocephalic atraumatic, extra-ocular movements intact, pupils equal and reactive to light bilaterally, mucous membranes moist. Cardiovascular: Heart regular rate and rhythm Chest: Able to complete full sentences, no retractions, no tachypnea Abdomen: abdomen soft, non-tender, non-distended, no organomegaly Musculoskeletal: Pulses present and equal in all extremities, no peripheral edema Motor: no focal deficits noted Neurological: CN II-XII grossly intact, no focal motor or sensory deficits noted Skin: Intact with no visualized rashes Psych: Normal affect and mood ED course: 82-year-old female with past medical history of vertigo presents emergency department for bout of dizziness today. Vital signs upon arrival are within acceptable limits. EKG is unremarkable. Physical examination is benign. Nursing notes and chart review was performed Laboratory evaluation obtained. CBC metabolic panel, urinalysis and for panel viral PCR is negative. Patient observed in emergency department for 4 hours. Patient able to ambulate to the bathroom with no couple occasions. Reevaluate bedside at 2:45 PM 5 to be stable medical condition. Patient will be discharged. My EKG interpretation: Ventricular rate 74, sinus rhythm,. Interval 141, Q's 80, QTc 412. No VA prolongation, no QTC prolongation, no ST or T-wave changes noted. Overall, this EKG is unremarkable Critical Care: no Critical Care time: n/a - Related Data Home Medications Medication Instructions Recorded Confirmed Levothyroxine Sodium [Synthroid] 112 mcg PO DAILY 09/28/16 08/07/21 cloZAPine [Clozaril] 200 mg PO HS@199909/28/16 08/07/21 Metoprolol Succinate (ER) [Toprol 25 mg PO DAILY 03/16/21 08/07/21 XL] Multivitamins, Thera [Multivitamin 1 tab PO DAILY 03/16/21 08/07/21 (formulary)] polyethylene glycoL 3350 [Miralax] 17 gm PO DAILY 03/16/21 08/07/21 rOPINIRole HCL [Requip] 0.25 mg PO DAILY 03/16/21 08/07/21 Acetaminophen Tab [Tylenol] 325 mg PO AC-BID@1200,1800 08/02/21 08/07/21 Docusate [Colace] 100 mg PO DAILY PRN 08/02/21 08/07/21 Omeprazole 20 mg PO DAILY 08/02/21 08/07/21 Oxybutynin Chloride [Ditropan] 10 mg PO HS 08/02/21 08/07/21 Potassium Chloride ER [K-Dur 20] 20 meq PO DAILY@1200 08/02/21 08/07/21 cloZAPine [Clozaril] 100 mg PO AC-BID@1200,1600 08/02/21 08/07/21 Ascorbic Acid [Vitamin C] 1,000 mg PO DAILY 08/07/21 08/07/21 Fexofenadine HCl [Kacie Allergy] 180 mg PO DAILY 08/07/21 08/07/21 Zinc 50 mg PO DAILY 08/07/21 08/07/21 Previous Rx's Medication Instructions Recorded Acetaminophen [Tylenol] 500 mg PO Q6H PRN #24 tab 08/02/21 Allergies Allergy/AdvReac Type Severity Reaction Status Date / Time amoxicillin [From Augmentin] Allergy Rash/Hives Verified 08/07/21 11:58 capsaicin [From Zostrix] Allergy Rash/Hives Verified 08/07/21 11:58 clavulanic acid Allergy Rash/Hives Verified 08/07/21 11:58 [From Augmentin] Review of Systems ROS Statement: Those systems with pertinent positive or pertinent negative responses have been documented in the HPI. ROS Other: All systems not noted in ROS Statement are negative. Past Medical History Past Medical History: Cancer, Memory Impairment, Seizure Disorder, Thyroid Disorder Additional Past Medical History / Comment(s): hx. cervical cancer, dizzy spells & falling, breast ca History of Any Multi-Drug Resistant Organisms: None Reported Past Surgical History: Breast Surgery Additional Past Surgical History / Comment(s): surg for breast abscess x2, lumpectomy left Past Anesthesia/Blood Transfusion Reactions: No Reported Reaction Past Psychological History: Anxiety, Schizophrenia Smoking Status: Never smoker Past Alcohol Use History: None Reported Past Drug Use History: None Reported - Past Family History Mother Family Medical History: No Reported History General Exam Limitations: no limitations Course Vital Signs 06/19/22 06/19/22 11:01 13:14 Temperature 97.9 F Pulse Rate 76 80 Respiratory 18 18 Rate Blood Pressure 154/77 O2 Sat by Pulse 97 96 Oximetry Medical Decision Making - Lab Data Result diagrams: 06/19/22 13:13 06/19/22 13:13 Lab Results 06/19/22 06/19/22 06/19/22 Range/Units 13:13 13:13 13:13 WBC 3.1 L (3.8-10.6) k/uL RBC 3.80 (3.80-5.40) m/uL Hgb 11.4 (11.4-16.0) gm/dL Hct 33.1 L (34.0-46.0) % MCV 87.2 (80.0-100.0) fL MCH 30.2 (25.0-35.0) pg MCHC 34.6 (31.0-37.0) g/dL RDW 13.1 (11.5-15.5) % Plt Count 152 (150-450) k/uL MPV 8.7 Neutrophils % 51 % Lymphocytes % 40 % Monocytes % 6 % Eosinophils % 0 % Basophils % 1 % Neutrophils # 1.6 (1.3-7.7) k/uL Lymphocytes # 1.3 (1.0-4.8) k/uL Monocytes # 0.2 (0-1.0) k/uL Eosinophils # 0.0 (0-0.7) k/uL Basophils # 0.0 (0-0.2) k/uL Sodium 136 L (137-145) mmol/L Potassium 3.8 (3.5-5.1) mmol/L Chloride 100 (98-107) mmol/L Carbon Dioxide 30 (22-30) mmol/L Anion Gap 6 mmol/L BUN 15 (7-17) mg/dL Creatinine 0.66 (0.52-1.04) mg/dL Est GFR (CKD-EPI)AfAm >90 (>60 ml/min/1.73 sqM) Est GFR (CKD-EPI)NonAf 82 (>60 ml/min/1.73 sqM) Glucose 84 (74-99) mg/dL Calcium 8.8 (8.4-10.2) mg/dL Magnesium 2.2 (1.6-2.3) mg/dL Urine Color Urine Appearance (Clear) Urine pH (5.0-8.0) Ur Specific [place] (1.001-1.035) Urine Protein (Negative) Urine Glucose (UA) (Negative) Urine Ketones (Negative) Urine Blood (Negative) Urine Nitrite (Negative) Urine Bilirubin (Negative) Urine Urobilinogen (<2.0) mg/dL Ur Leukocyte Esterase (Negative) Influenza Type A (PCR) Not Detected (Not Detectd) Influenza Type B (PCR) Not Detected (Not Detectd) RSV (PCR) Not Detected (Not Detectd) SARS-CoV-2 (PCR) Not Detected (Not Detectd) 06/19/22 Range/Units 14:16 WBC (3.8-10.6) k/uL RBC (3.80-5.40) m/uL Hgb (11.4-16.0) gm/dL Hct (34.0-46.0) % MCV (80.0-100.0) fL MCH (25.0-35.0) pg MCHC (31.0-37.0) g/dL RDW (11.5-15.5) % Plt Count (150-450) k/uL MPV Neutrophils % % Lymphocytes % % Monocytes % % Eosinophils % % Basophils % % Neutrophils # (1.3-7.7) k/uL Lymphocytes # (1.0-4.8) k/uL Monocytes # (0-1.0) k/uL Eosinophils # (0-0.7) k/uL Basophils # (0-0.2) k/uL Sodium (137-145) mmol/L Potassium (3.5-5.1) mmol/L Chloride (98-107) mmol/L Carbon Dioxide (22-30) mmol/L Anion Gap mmol/L BUN (7-17) mg/dL Creatinine (0.52-1.04) mg/dL Est GFR (CKD-EPI)AfAm (>60 ml/min/1.73 sqM) Est GFR (CKD-EPI)NonAf (>60 ml/min/1.73 sqM) Glucose (74-99) mg/dL Calcium (8.4-10.2) mg/dL Magnesium (1.6-2.3) mg/dL Urine Color Colorless Urine Appearance Clear (Clear) Urine pH 7.5 (5.0-8.0) Ur Specific [place] 1.002 (1.001-1.035) Urine Protein Negative (Negative) Urine Glucose (UA) Negative (Negative) Urine Ketones Negative (Negative) Urine Blood Negative (Negative) Urine Nitrite Negative (Negative) Urine Bilirubin Negative (Negative) Urine Urobilinogen <2.0 (<2.0) mg/dL Ur Leukocyte Esterase Negative (Negative) Influenza Type A (PCR) (Not Detectd) Influenza Type B (PCR) (Not Detectd) RSV (PCR) (Not Detectd) SARS-CoV-2 (PCR) (Not Detectd) Disposition Clinical Impression: Dizziness Disposition: HOME SELF-CARE Condition: Good Instructions (If sedation given, give patient instructions): Dizziness (ED) Is patient prescribed a controlled substance at d/c from ED?: No Referrals: Ashish Ferrara MD [Primary Care Provider] - 1-2 days Time of Disposition: 14:47
[2022-06-19 13:30] LABS: Basophils % (A) 1 %; Eosinophils % (A) 0 %; HCT 33.1 % (34.0-46.0); HGB 11.4 gm/dL (11.4-16.0); Lymphocytes # (A) 1.3 k/uL (1.0-4.8); Lymphocytes % (A) 40 %; MCH 30.2 pg (25.0-35.0); MCHC 34.6 g/dL (31.0-37.0); MCV 87.2 fL (80.0-100.0); Mean Platelet Volume 8.7; Monocytes # (A) 0.2 k/uL (0-1.0); Monocytes % (A) 6 %; Neutrophils # (A) 1.6 k/uL (1.3-7.7); Neutrophils % (A) 51 %; Platelet Count 152 k/uL (150-450); RDW 13.1 % (11.5-15.5); WBC 3.1 k/uL (3.8-10.6)
[2022-06-19 13:47] LABS: African American GFR (CKD) >90 (>60 ml/min/1.73 sqM); Anion Gap 6 mmol/L; Blood Urea Nitrogen 15 mg/dL (7-17); Calcium 8.8 mg/dL (8.4-10.2); Carbon Dioxide 30 mmol/L (22-30); Chloride 100 mmol/L (98-107); Glucose 84 mg/dL (74-99); Magnesium 2.2 mg/dL (1.6-2.3); Non-African American GFR(CKD) 82 (>60 ml/min/1.73 sqM); Potassium 3.8 mmol/L (3.5-5.1); Sodium 136 mmol/L (137-145)
[2022-06-19 14:24] LABS: Appearance,Urine Clear (Clear); Bilirubin,Urine Negative (Negative); Blood,Urine Negative (Negative); Color,Urine Colorless; Glucose,Urine (UA) Negative (Negative); Ketones,Urine Negative (Negative); Leukocyte Esterase,Urine Negative (Negative); Nitrite,Urine Negative (Negative); PH, Urine 7.5 (5.0-8.0); Protein,Urine Negative (Negative); Specific Gravity,Urine 1.002 (1.001-1.035); Urobilinogen,Urine <2.0 mg/dL (<2.0)
[2022-06-19 15:00] VITALS: BP 147/84; PULSE 82
== END 2022-06-19 15:00 | disposition home or self-care (01) ==
LOC: EC 10:42
DX: R42 Dizziness and giddiness (principal); E07.9 Disorder of thyroid, unspecified; F41.9 Anxiety disorder, unspecified; Z20.822 Contact with and (suspected) exposure to COVID-19; Z79.890 Hormone replacement therapy; Z79.899 Other long term (current) drug therapy; Z88.0 Allergy status to penicillin; Z88.1 Allergy status to other antibiotic agents; Z88.6 Allergy status to analgesic agent
CPT/HCPCS: 36415; 80048; 81003; 83735; 85025; 87636; 93005; 99284

== ENCOUNTER 2022-06-23 04:36 | Observation (INO) | payer MEDICARE, BC ==
--- NOTE | 2022-06-23 04:46 | ED ---
Chest Pain HPI - General Stated Complaint: Chest Pain Time Seen by Provider: 06/23/22 04:40 Source: RN notes reviewed, old records reviewed Mode of arrival: EMS Limitations: no limitations - History of Present Illness Initial Comments: This is an 82-year-old female to the emergency department for evaluation weakness weakness and chest pain. Recent hospital admission some dizziness type symptoms. Patient's chest pain is persistent here in the ER. This is pain that woke her up from sleep but still persists here in the ER although it did resolve prior to arrival and now is again resolved Complaint: chest pain -: hour(s) Onset: during rest, awoke with symptoms Pain Location: left chest Pain Radiation: none Severity: moderate Severity scale (1-10): 7 Quality: sharp Consistency: constant Improves With: nothing Worsens With: exertion Context: recent illness Anginal Symptoms: nausea, vomiting Other Symptoms: cough Treatments Prior to Arrival: none - Related Data Home Medications Medication Instructions Recorded Confirmed Levothyroxine Sodium [Synthroid] 112 mcg PO DAILY 09/28/16 08/07/21 cloZAPine [Clozaril] 200 mg PO HS@199909/28/16 08/07/21 Metoprolol Succinate (ER) [Toprol 25 mg PO DAILY 03/16/21 08/07/21 XL] Multivitamins, Thera [Multivitamin 1 tab PO DAILY 03/16/21 08/07/21 (formulary)] polyethylene glycoL 3350 [Miralax] 17 gm PO DAILY 03/16/21 08/07/21 rOPINIRole HCL [Requip] 0.25 mg PO DAILY 03/16/21 08/07/21 Acetaminophen Tab [Tylenol] 325 mg PO AC-BID@1200,1800 08/02/21 08/07/21 Docusate [Colace] 100 mg PO DAILY PRN 08/02/21 08/07/21 Omeprazole 20 mg PO DAILY 08/02/21 08/07/21 Oxybutynin Chloride [Ditropan] 10 mg PO HS 08/02/21 08/07/21 Potassium Chloride ER [K-Dur 20] 20 meq PO DAILY@1200 08/02/21 08/07/21 cloZAPine [Clozaril] 100 mg PO AC-BID@1200,1600 08/02/21 08/07/21 Ascorbic Acid [Vitamin C] 1,000 mg PO DAILY 08/07/21 08/07/21 Fexofenadine HCl [Kacie Allergy] 180 mg PO DAILY 08/07/21 08/07/21 Zinc 50 mg PO DAILY 08/07/21 08/07/21 Previous Rx's Medication Instructions Recorded Acetaminophen [Tylenol] 500 mg PO Q6H PRN #24 tab 08/02/21 Allergies Allergy/AdvReac Type Severity Reaction Status Date / Time amoxicillin [From Augmentin] Allergy Rash/Hives Verified 08/07/21 11:58 capsaicin [From Zostrix] Allergy Rash/Hives Verified 08/07/21 11:58 clavulanic acid Allergy Rash/Hives Verified 08/07/21 11:58 [From Augmentin] Review of Systems ROS Statement: Those systems with pertinent positive or pertinent negative responses have been documented in the HPI. ROS Other: All systems not noted in ROS Statement are negative. EKG Findings - EKG Comments: EKG Findings:: EKG shows sinus rhythm 82 ND 142 QRS 90 QTC 404 Past Medical History Past Medical History: Cancer, Memory Impairment, Seizure Disorder, Thyroid Disorder Additional Past Medical History / Comment(s): hx. cervical cancer, dizzy spells & falling, breast ca History of Any Multi-Drug Resistant Organisms: None Reported Past Surgical History: Breast Surgery Additional Past Surgical History / Comment(s): surg for breast abscess x2, lumpectomy left Past Anesthesia/Blood Transfusion Reactions: No Reported Reaction Past Psychological History: Anxiety, Schizophrenia Smoking Status: Never smoker Past Alcohol Use History: None Reported Past Drug Use History: None Reported - Past Family History Mother Family Medical History: No Reported History General Exam General appearance: alert, in no apparent distress Head exam: Present: atraumatic, normocephalic, normal inspection Eye exam: Present: normal appearance, PERRL, EOMI. Absent: scleral icterus, conjunctival injection, periorbital swelling ENT exam: Present: normal exam, mucous membranes moist Neck exam: Present: normal inspection. Absent: tenderness, meningismus, lymphadenopathy Respiratory exam: Present: normal lung sounds bilaterally. Absent: respiratory distress, wheezes, rales, rhonchi, stridor Cardiovascular Exam: Present: regular rate, normal rhythm, normal heart sounds. Absent: systolic murmur, diastolic murmur, rubs, gallop, clicks GI/Abdominal exam: Present: soft, normal bowel sounds. Absent: distended, tenderness, guarding, rebound, rigid Extremities exam: Present: normal inspection, full ROM, normal capillary refill. Absent: tenderness, pedal edema, joint swelling, calf tenderness Back exam: Present: normal inspection Neurological exam: Present: alert, oriented X3, CN II-XII intact Psychiatric exam: Present: normal affect, normal mood Skin exam: Present: warm, dry, intact, normal color. Absent: rash Course Vital Signs 06/23/22 04:44 Temperature 97.8 F Pulse Rate 78 Respiratory 18 Rate Blood Pressure 174/86 O2 Sat by Pulse 99 Oximetry - Reevaluation(s) Reevaluation #1: 06/23/22 06:31 Medical records reviewed Reevaluation #2: 06/23/22 06:31 Patient still chest pain here in the ER Reevaluation #3: 06/23/22 06:31 Patient informed results and questions answered Chest Pain MDM - MDM 82 female DF for evaluation of chest pain [place] of the chest pain observation Disposition Clinical Impression: Chest pain, Dizziness, Weakness Disposition: ADMITTED IP TO THIS HOSP Condition: Fair Is patient prescribed a controlled substance at d/c from ED?: No Referrals: Ashish Ferrara MD [Primary Care Provider] - 1-2 days
[2022-06-23 05:03] VITALS: TEMP 97.8
[2022-06-23 05:49] LABS: Basophils % (A) 0 %; Eosinophils % (A) 0 %; HCT 31.2 % (34.0-46.0); HGB 10.6 gm/dL (11.4-16.0); Lymphocytes # (A) 1.4 k/uL (1.0-4.8); Lymphocytes % (A) 47 %; MCH 29.8 pg (25.0-35.0); MCHC 34.1 g/dL (31.0-37.0); MCV 87.5 fL (80.0-100.0); Mean Platelet Volume 9.1; Monocytes # (A) 0.2 k/uL (0-1.0); Monocytes % (A) 6 %; Neutrophils # (A) 1.3 k/uL (1.3-7.7); Neutrophils % (A) 44 %; Platelet Count 141 k/uL (150-450); RBC 3.56 m/uL (3.80-5.40); RDW 13.2 % (11.5-15.5)
--- NOTE | 2022-06-23 05:57 | XR ---
EXAMINATION TYPE: XR chest 2V DATE OF EXAM: 06/23/2022 COMPARISON: NONE HISTORY: Chest pain TECHNIQUE: 2 view FINDINGS: Heart is normal. Lungs are clear. Diaphragm is normal. Bony thorax is intact IMPRESSION: No active cardiopulmonary disease.. Atheromatous aorta. No change.
[2022-06-23 06:09] LABS: Partial Thromboplastin Time 25.8 sec (22.0-30.0); Prothrombin Time 10.4 sec (9.0-12.0)
[2022-06-23 06:32] LABS: ALT 32 U/L (4-34); AST 33 U/L (14-36); African American GFR (CKD) >90 (>60 ml/min/1.73 sqM); Albumin 3.7 g/dL (3.5-5.0); Alkaline Phosphatase 109 U/L (38-126); Calcium 8.4 mg/dL (8.4-10.2); Carbon Dioxide 29 mmol/L (22-30); Glucose 94 mg/dL (74-99); Lipase 64 U/L (23-300); Magnesium 2.4 mg/dL (1.6-2.3); Non-African American GFR(CKD) 79 (>60 ml/min/1.73 sqM); Potassium 3.6 mmol/L (3.5-5.1); Sodium 140 mmol/L (137-145)
[2022-06-23 06:34] LABS: Anion Gap 6 mmol/L; Blood Urea Nitrogen 15 mg/dL (7-17); Chloride 105 mmol/L (98-107); Total Bilirubin 0.4 mg/dL (0.2-1.3)
[2022-06-23 08:38] VITALS: RESP 19
[2022-06-23] MEDS ORDERED: NALOXONE 0.4 MG/ML 1 ML VIAL IV PRN (08:48)
[2022-06-23] MEDS ORDERED: ASPIRIN 81 MG PO STA (08:49)
[2022-06-23] MEDS ORDERED: METOPROLOL SUCCINATE (ER) 25 MG TAB.ER.24H PO SCH (09:30)
[2022-06-23] MEDS ORDERED: ACETAMINOPHEN TAB 500 MG TAB PO PRN (10:03)
[2022-06-23] MEDS ORDERED: LEVOTHYROXINE 112 MCG TAB PO SCH (10:15)
[2022-06-23] MEDS ORDERED: MULTIVITAMINS, THERA 1 EACH TAB PO SCH (10:15)
[2022-06-23] MEDS ORDERED: PANTOPRAZOLE 40 MG TABLET PO SCH (10:15)
[2022-06-23 11:18] VITALS: PULSE 90
[2022-06-23 11:53] VITALS: BP 163/82
[2022-06-23] MEDS ORDERED: BENZONATATE 100 MG CAP PO PRN (11:56)
[2022-06-23] MEDS ORDERED: NAPROXEN 250 MG TAB PO PRN (11:56)
[2022-06-23] MEDS ORDERED: MECLIZINE 12.5 MG TAB PO PRN (11:56)
[2022-06-23] MEDS ORDERED: ASCORBIC ACID 500 MG TAB PO SCH (12:00)
[2022-06-23] MEDS ORDERED: ZINC SULFATE 220 MG CAP PO SCH (12:00)
[2022-06-23] MEDS ORDERED: ACETAMINOPHEN TAB 325 MG TAB PO SCH (12:00)
[2022-06-23] MEDS ORDERED: cloZAPine 100 MG TAB PO SCH ×2 (12:00→20:00)
--- NOTE | 2022-06-23 13:55 | P.HPIM ---
History of Present Illness H&P Date: 06/23/22 Chief Complaint: Chest pain This is a pleasant 82-year-old patient, follows with visiting physicians Dr. Ferrara. Chronic stable medical conditions include seizure disorder, h ypothyroid, anxiety disorder, schizophrenia, cognitive impairment. Patient's baseline uses a walker. Lives at [facility]. Patient is brought to the ER. Accompanied currently by her son and daughter. Normally uses a walker to get about. Patient this morning noticed a sharp chest pain that lasted about 1-2 minutes. No radiation. No shortness of breath. No dizziness no lightheadedness. The pain was not from longer duration. Son was at the bedside says that patient's overly obsessive. She does clean the bathroom. Spends about 20-30 minutes cleaning the bathroom. Sometimes she'll get flushed with that. Patient is also obsessed that her arms and hurt people. If somebody touches her arms also get hurt. She is obsessive cleaning her food and water she thinks is contaminated some diarrhea and throwing away. Sometimes seen with medications. She does follow with psychiatry as outpatient and is on Clozaril. Appetite is fair. No change in bowel pattern. Review of systems: GEN.: None EYES: None HEENT: None NECK: None RESPIRATORY: None CARDIOVASCULAR: None GASTROINTESTINAL: None GENITOURINARY: None MUSCULOSKELETAL: Some joint pain LYMPHATICS: None HEMATOLOGICAL: None PSYCHIATRY: Forgetful, as above NEUROLOGICAL: Does use a walker Past medical history to include: Cognitive impairment, seizure disorder, hypothyroid, cervical cancer, breast cancer anxiety, schizophrenia Social history: [facility]. use a walker. No history of smoking and alcohol. Family history: Reviewed, noncontributory to presentation Physical examination: VITAL SIGNS: 97.8, 86, 19, 160/82, 88% room air GENERAL: BMI 25.1, reclining bed, awake, bit anxious EYES: Pupils equal. Conjunctiva normal. HEENT: External appearance of nose and ears normal, oral cavity grossly normal. NECK: JVD not raised; masses not palpable. HEART: First and second heart sounds are normal; no edema. LUNGS: Respiratory rate normal; clear to auscultation. ABDOMEN: Soft, nontender, liver spleen not palpable, no masses palpable. PSYCH: Alert and oriented x3; mood and affect anxious. MUSCULOSKELETAL:No Clubbing/cyanosis;muscles-grossly intact. Evidence of OA NEUROLOGICAL: Cranial nerves grossly intact; no facial asymmetry, power and sensation grossly intact. LYMPHATICS: No lymph nodes palpable in the axilla and neck INVESTIGATIONS, reviewed in the clinical context: WBC 3 hemoglobin 10.6 platelets 141 potassium 3.6 creatinine 0.71 Troponin I 3 negative EKG tracing personally reviewed by me-normal sinus rhythm Chest x-ray film personally reviewed by me-possibly chronic changes 2-D echocardiogram [July 2021]: EF 50-45%. [id number] mitral stenosis. Assessment and plan: -Anterior chest wall pain lasting 1-2 minutes sharp in nature. This does not appear to be cardiac. Likely musculoskeletal. -Mild to moderate mitral stenosis. -Mild cognitive impairment, from late onset Alzheimer's dementia -Restless leg syndrome Recur 0.25 mg daily -Chronic urinary stress incontinence -GERD Omeprazole 20 mg daily -Essential hypertension Toprol-XL 25 mg a day, Cozaar -Hypothyroid Synthroid) 112 g daily -Primary osteoarthritis multiple joints bilaterally Tylenol as needed -Chronic schizophrenia Clozaril. Consult psychiatry see if any medications to be adjusted Abilify Care was discussed at length with the patient's son and daughter the bedside. Home medications resumed. Will consult psychiatry see if any medications to be adjusted. Patient otherwise seems to be doing fairly well. Past Medical History Past Medical History: Cancer, Memory Impairment, Seizure Disorder, Thyroid Disorder Additional Past Medical History / Comment(s): hx. cervical cancer, dizzy spells & falling, breast ca History of Any Multi-Drug Resistant Organisms: None Reported Past Surgical History: Breast Surgery Additional Past Surgical History / Comment(s): surg for breast abscess x2, lumpectomy left Past Anesthesia/Blood Transfusion Reactions: No Reported Reaction Past Psychological History: Anxiety, Schizophrenia Smoking Status: Never smoker Past Alcohol Use History: None Reported Past Drug Use History: None Reported - Past Family History Mother Family Medical History: No Reported History Medications and Allergies Home Medications Medication Instructions Recorded Confirmed Type Levothyroxine Sodium [Synthroid] 112 mcg PO DAILY 09/28/16 06/23/22 History cloZAPine [Clozaril] 200 mg PO HS 09/28/16 06/23/22 History Metoprolol Succinate (ER) [Toprol 25 mg PO DAILY 03/16/21 06/23/22 History XL] polyethylene glycoL 3350 [Miralax] 17 gm PO DAILY 03/16/21 06/23/22 History Omeprazole 20 mg PO DAILY 08/02/21 06/23/22 History Fexofenadine HCl [Kacie Allergy] 180 mg PO DAILY 08/07/21 06/23/22 History ARIPiprazole [Abilify] 5 mg PO DAILY 06/23/22 06/23/22 History Ascorbic Acid [Vitamin C] 500 mg PO DAILY@1200 06/23/22 06/23/22 History Benzonatate [Tessalon Perles] 200 mg PO TID PRN 06/23/22 06/23/22 History Ferrous Gluconate 324 mg PO DAILY@1630 06/23/22 06/23/22 History Fluticasone Nasal [place] [Flonase 1 - 2 spray EA NOSTRIL DAILY PRN 06/23/22 06/23/22 History Nasal [place]] Losartan [Cozaar] 25 mg PO HS 06/23/22 06/23/22 History Meclizine [Antivert] 12.5 mg PO BID PRN 06/23/22 06/23/22 History Multivitamins, Thera [Multivitamin 1 tab PO DAILY 06/23/22 06/23/22 History (formulary)] Naproxen Sodium [Aleve] 220 mg PO DAILY@1200 PRN 06/23/22 06/23/22 History Pramipexole [Mirapex] 0.125 mg PO DAILY 06/23/22 06/23/22 History Trospium Chloride [Sanctura XR] 60 mg PO HS 06/23/22 06/23/22 History Turmeric Root Extract [Turmeric] 500 mg PO DAILY@1630 06/23/22 06/23/22 History Zinc Sulfate 50 mg PO DAILY@1200 06/23/22 06/23/22 History cloZAPine [Clozaril] 50 mg PO BID-W/MEALS 06/23/22 06/23/22 History guaiFENesin [Mucinex] 1,200 mg PO BID 06/23/22 06/23/22 History Allergies Allergy/AdvReac Type Severity Reaction Status Date / Time amoxicillin [From Augmentin] Allergy Rash/Hives Verified 06/23/22 10:00 capsaicin [From Zostrix] Allergy Rash/Hives Verified 06/23/22 10:00 clavulanic acid Allergy Rash/Hives Verified 06/23/22 10:00 [From Augmentin] Physical Exam Vitals: Vital Signs Temp Pulse Resp BP Pulse Ox 06/23/22 11:52 163/82 06/23/22 11:16 90 19 188/98 06/23/22 09:07 89 19 189/108 98 06/23/22 08:37 97.8 F 86 19 200/109 100 06/23/22 04:44 97.8 F 78 18 174/86 99 Intake and Output 06/22/22 06/23/22 06/23/22 22:59 06:59 14:59 Other: Weight 54.431 kg Results CBC & Chem 7: 06/23/22 05:03 06/23/22 05:03 Labs: Abnormal Lab Results - Last 24 Hours (Table) 06/23/22 06/23/22 Range/Units 05:03 05:03 WBC 3.0 L (3.8-10.6) k/uL RBC 3.56 L (3.80-5.40) m/uL Hgb 10.6 L (11.4-16.0) gm/dL Hct 31.2 L (34.0-46.0) % Plt Count 141 L (150-450) k/uL Magnesium 2.4 H (1.6-2.3) mg/dL Total Protein 6.0 L (6.3-8.2) g/dL
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
--- NOTE | 2022-06-23 14:22 | P.DS ---
Providers Date of admission: 06/23/22 08:48 Expected date of discharge: 06/23/22 Attending physician: Roly Olivarez Consults: 06/23/22 12:08 Consult Physician Routine Consulting Provider: Jose Sanchez Consult Reason/Comments: delusions Do you want consulting provider notified?: Yes Primary care physician: Ashish [facility] Course: Chief Complaint: Chest pain This is a pleasant 82-year-old patient, follows with visiting physicians Dr. Ferrara. Chronic stable medical conditions include seizure disorder, hypothyroid, anxiety disorder, schizophrenia, cognitive impairment. Patient's baseline uses a walker. Lives at [facility]. Patient is brought to the ER. Accompanied currently by her son and daughter. Normally uses a walker to get about. Patient this morning noticed a sharp chest pain that lasted about 1-2 minutes. No radiation. No shortness of breath. No dizziness no lightheadedness. The pain was not from longer duration. Son was at the bedside says that patient's overly obsessive. She does clean the bathroom. Spends about 20-30 minutes cleaning the bathroom. Sometimes she'll get flushed with that. Patient is also obsessed that her arms and hurt people. If somebody touches her arms also get hurt. She is obsessive cleaning her food and water she thinks is contaminated some diarrhea and throwing away. Sometimes seen with medications. She does follow with psychiatry as outpatient and is on Clozaril. Appetite is fair. No change in bowel pattern. Patient is seen by Dr. Torres from psychiatry. He discussed that patient has chronic schizophrenia. Patient stable for her condition. No change in medications. He also spoke to the patient's son. Patient return to her assisted living. Clear I spoke in detail to the patient's son. And daughter Past medical history to include: Cognitive impairment, seizure disorder, hypothyroid, cervical cancer, breast cancer anxiety, schizophrenia Social history: Lives at [facility]. use a walker. No history of smoking and alcohol. Family history: Reviewed, noncontributory to presentation Physical examination: VITAL SIGNS: 97.8, 86, 19, 160/82, 88% room air GENERAL: BMI 25.1, reclining bed, awake, bit anxious EYES: Pupils equal. Conjunctiva normal. HEENT: External appearance of nose and ears normal, oral cavity grossly normal. NECK: JVD not raised; masses not palpable. HEART: First and second heart sounds are normal; no edema. LUNGS: Respiratory rate normal; clear to auscultation. ABDOMEN: Soft, nontender, liver spleen not palpable, no masses palpable. PSYCH: Alert and oriented x3; mood and affect anxious. MUSCULOSKELETAL:No Clubbing/cyanosis;muscles-grossly intact. Evidence of OA NEUROLOGICAL: Cranial nerves grossly intact; no facial asymmetry, power and sensation grossly intact. LYMPHATICS: No lymph nodes palpable in the axilla and neck INVESTIGATIONS, reviewed in the clinical context: WBC 3 hemoglobin 10.6 platelets 141 potassium 3.6 creatinine 0.71 Troponin I 3 negative EKG tracing personally reviewed by me-normal sinus rhythm Chest x-ray film personally reviewed by me-possibly chronic changes 2-D echocardiogram [July 2021]: EF 50-45%. [id number] mitral stenosis. Assessment and plan: -Anterior chest wall pain lasting 1-2 minutes sharp in nature. This does not appear to be cardiac. Likely musculoskeletal. -Mild to moderate mitral stenosis. -Mild cognitive impairment, from late onset Alzheimer's dementia -Restless leg syndrome Recur 0.25 mg daily -Chronic urinary stress incontinence -GERD Omeprazole 20 mg daily -Essential hypertension Toprol-XL 25 mg a day, Cozaar -Hypothyroid Synthroid) 112 g daily -Primary osteoarthritis multiple joints bilaterally Tylenol as needed -Chronic schizophrenia Clozaril. Abilify. Seen by Dr. Torres from psychiatry. No change in medications. Stable. Disposition: [facility], assisted living Plan - Discharge Summary New Discharge Prescriptions: Continue cloZAPine [Clozaril] 200 mg PO HS Levothyroxine Sodium [Synthroid] 112 mcg PO DAILY polyethylene glycoL 3350 [Miralax] 17 gm PO DAILY Omeprazole 20 mg PO DAILY Benzonatate [Tessalon Perles] 200 mg PO TID PRN PRN Reason: Cough Ascorbic Acid [Vitamin C] 500 mg PO DAILY@1200 Naproxen Sodium [Aleve] 220 mg PO DAILY@1200 PRN PRN Reason: Pain Metoprolol Succinate (ER) [Toprol XL] 25 mg PO DAILY ARIPiprazole [Abilify] 5 mg PO DAILY cloZAPine [Clozaril] 50 mg PO BID-W/MEALS Ferrous Gluconate 324 mg PO DAILY@1630 Fluticasone Nasal [place] [Flonase Nasal [place]] 1 - 2 spray EA NOSTRIL DAILY PRN PRN Reason: allergies guaiFENesin [Mucinex] 1,200 mg PO BID Losartan [Cozaar] 25 mg PO HS Pramipexole [Mirapex] 0.125 mg PO DAILY Trospium Chloride [Sanctura XR] 60 mg PO HS Multivitamins, Thera [Multivitamin (formulary)] 1 tab PO DAILY Zinc Sulfate 50 mg PO DAILY@1200 Discontinued Meclizine [Antivert] 12.5 mg PO BID PRN PRN Reason: dizziness Fexofenadine HCl [Kacie Allergy] 180 mg PO DAILY No Action Turmeric Root Extract [Turmeric] 500 mg PO DAILY@1630 Discharge Medication List Levothyroxine Sodium [Synthroid] 112 mcg PO DAILY 09/28/16 [History] cloZAPine [Clozaril] 200 mg PO HS 09/28/16 [History] Metoprolol Succinate (ER) [Toprol XL] 25 mg PO DAILY 03/16/21 [History] polyethylene glycoL 3350 [Miralax] 17 gm PO DAILY 03/16/21 [History] Omeprazole 20 mg PO DAILY 08/02/21 [History] ARIPiprazole [Abilify] 5 mg PO DAILY 06/23/22 [History] Ascorbic Acid [Vitamin C] 500 mg PO DAILY@1200 06/23/22 [History] Benzonatate [Tessalon Perles] 200 mg PO TID PRN 06/23/22 [History] Ferrous Gluconate 324 mg PO DAILY@1630 06/23/22 [History] Fluticasone Nasal [place] [Flonase Nasal [place]] 1 - 2 spray EA NOSTRIL DAILY PRN 06/23/22 [History] Losartan [Cozaar] 25 mg PO HS 06/23/22 [History] Multivitamins, Thera [Multivitamin (formulary)] 1 tab PO DAILY 06/23/22 [History] Naproxen Sodium [Aleve] 220 mg PO DAILY@1200 PRN 06/23/22 [History] Pramipexole [Mirapex] 0.125 mg PO DAILY 06/23/22 [History] Trospium Chloride [Sanctura XR] 60 mg PO HS 06/23/22 [History] Turmeric Root Extract [Turmeric] 500 mg PO DAILY@1630 06/23/22 [History] Zinc Sulfate 50 mg PO DAILY@1200 06/23/22 [History] cloZAPine [Clozaril] 50 mg PO BID-W/MEALS 06/23/22 [History] guaiFENesin [Mucinex] 1,200 mg PO BID 06/23/22 [History] Follow up Appointment(s)/Referral(s): Ashish Ferrara MD [Primary Care Provider] - 1-2 days
[2022-06-23] MEDS ORDERED: FERROUS SULFATE 325 MG TAB PO SCH (16:30)
[2022-06-23] MEDS ORDERED: NON FORMULARY DRUG (Turmeric Root Extract [Turmeric] 500 MG Tablet) PO SCH (16:30)
[2022-06-23] MEDS ORDERED: cloZAPine 25 MG TAB PO SCH (17:30)
[2022-06-23] MEDS ORDERED: LOSARTAN 25 MG TAB PO SCH (21:00)
[2022-06-23] MEDS ORDERED: TROSPIUM CHLORIDE 20 MG TABLET PO SCH (21:00)
[2022-06-23] MEDS ORDERED: guaiFENesin 600 MG TABLET.ER PO SCH (21:00)
[2022-06-23] MEDS ORDERED: OXYBUTYNIN CHLORIDE 5 MG TAB PO SCH (21:00)
[2022-06-24] MEDS ORDERED: METOPROLOL SUCCINATE (ER) 25 MG TAB.ER.24H PO SCH (09:00)
[2022-06-24] MEDS ORDERED: polyethylene glycoL 3350 17 GM POWD.PACK PO SCH (09:00)
[2022-06-24] MEDS ORDERED: PRAMIPEXOLE 0.125 MG TAB PO SCH (09:00)
[2022-06-24] MEDS ORDERED: ARIPiprazole 5 MG TAB PO SCH (09:00)
[2022-06-24] MEDS ORDERED: ASCORBIC ACID 500 MG TAB PO SCH (09:00)
[2022-06-24] MEDS ORDERED: LORATADINE 10 MG TAB PO SCH (09:00)
[2022-06-24] MEDS ORDERED: MULTIVITAMINS, THERA 1 EACH TAB PO SCH (09:00)
[2022-06-24 14:27] LABS: Clozapine (Clozaril) 510 ng/mL (200-700); Norclozapine 209 ng/mL (200-700)
== END 2022-06-23 14:26 | disposition home or self-care (01) ==
LOC: EC 04:36 → 6NMEDSUR 08:48
PROVIDERS: ADMIT Hospitalist; ATTEND Hospitalist
DX: R07.89 Other chest pain (principal); F20.9 Schizophrenia, unspecified; I05.0 Rheumatic mitral stenosis; G30.1 Alzheimer's disease with late onset; F02.84 Dementia in other diseases classified elsewhere, unspecified severity, with anxiety; G40.909 Epilepsy, unspecified, not intractable, without status epilepticus; R42 Dizziness and giddiness; F41.9 Anxiety disorder, unspecified; E03.9 Hypothyroidism, unspecified; G25.81 Restless legs syndrome; N39.3 Stress incontinence (female) (male); K21.9 Gastro-esophageal reflux disease without esophagitis; I10 Essential (primary) hypertension; M15.9 Polyosteoarthritis, unspecified; Z79.890 Hormone replacement therapy; Z79.899 Other long term (current) drug therapy; Z88.0 Allergy status to penicillin; Z88.8 Allergy status to other drugs, medicaments and biological substances; Z85.41 Personal history of malignant neoplasm of cervix uteri; Z85.3 Personal history of malignant neoplasm of breast; Z91.81 History of falling; Z91.51 Personal history of suicidal behavior; Z98.890 Other specified postprocedural states
CPT/HCPCS: 99285; 36415; 93005; 85379; 80159; 83880; 80053; 83690; 83735; 84484; 85025; 85610; 85730; 71046; G0378; S0136

== ENCOUNTER → 2023-09-06 | Outpatient (CLI) | payer MEDICARE, BC ==
--- NOTE | 2023-09-07 20:47 | MM ---
Reason for Exam: Screening (asymptomatic). Last mammogram was performed 3 year(s) and 5 month(s) ago. Patient History: Menarche at age 13. First Full-Term at age 16. Postmenopausal. Breast cancer, left, age 77. Other cancer. 2018, Lumpectomy on the Left side. Prior Study Comparison: 09/21/2017 Screening Mammogram, Unknown. 11/14/2018 Bilateral [facility]ogram, [facility]. 04/06/2020 Bilateral Diagnostic Mammogram, [facility]. Tissue Density: The breast tissue is extremely dense which could obscure a lesion on mammography. Findings: Analyzed By CAD. Increasing breast density and decreasing size compatible with patient's interval weight loss. There are benign bilateral vascular calcifications. Microclip left breast from prior biopsy. Postsurgical changes left breast. There is no suspicious group of microcalcifications or new suspicious mass in either breast. Overall Assessment: Benign, BI-RAD 2 Management: Screening Mammogram of both breasts in 1 year. . Patient should continue monthly self-breast exams. A clinical breast exam by your physician is recommended on an annual basis. This exam should not preclude additional follow-up of suspicious palpable abnormalities. Electronically signed and approved by: Parish Mai M.D. Radiologist
== END | disposition home or self-care (01) ==
LOC: RADMAMWWP 13:21
PROVIDERS: ATTEND Family Medicine
DX: Z12.31 Encounter for screening mammogram for malignant neoplasm of breast (principal); C50.512 Malignant neoplasm of lower-outer quadrant of left female breast; Z78.0 Asymptomatic menopausal state
CPT/HCPCS: 77063; 77067

== ENCOUNTER 2023-11-14 05:52 | Emergency (ER) | payer MEDICARE, BC ==
--- NOTE | 2023-11-14 06:31 | ED ---
Fall HPI - General Chief Complaint: Fall Stated Complaint: Fall Time Seen by Provider: 11/14/23 06:07 Source: patient, RN notes reviewed Mode of arrival: wheelchair Limitations: no limitations - History of Present Illness Initial Comments: 83-year-old female presents emergency department chief complaint of a fall. Patient states that she got up quickly and fell. Patient states she did strike her head she complains of some neck pain and was placed in a c-collar. Patient states that she does have frequent falls is not a usual she denies any chest pa in shortness of breath she does complain of bilateral knee pain. - Related Data Home Medications Medication Instructions Recorded Confirmed Levothyroxine Sodium [Synthroid] 112 mcg PO DAILY 09/28/16 06/23/22 cloZAPine [Clozaril] 200 mg PO HS 09/28/16 06/23/22 Metoprolol Succinate (ER) [Toprol 25 mg PO DAILY 03/16/21 06/23/22 XL] polyethylene glycoL 3350 [Miralax] 17 gm PO DAILY 03/16/21 06/23/22 Omeprazole 20 mg PO DAILY 08/02/21 06/23/22 ARIPiprazole [Abilify] 5 mg PO DAILY 06/23/22 06/23/22 Ascorbic Acid [Vitamin C] 500 mg PO DAILY@1200 06/23/22 06/23/22 Benzonatate [Tessalon Perles] 200 mg PO TID PRN 06/23/22 06/23/22 Ferrous Gluconate 324 mg PO DAILY@1630 06/23/22 06/23/22 Fluticasone Nasal [place] [Flonase 1 - 2 spray EA NOSTRIL DAILY PRN 06/23/22 06/23/22 Nasal [place]] Losartan [Cozaar] 25 mg PO HS 06/23/22 06/23/22 Multivitamins, Thera [Multivitamin 1 tab PO DAILY 06/23/22 06/23/22 (formulary)] Naproxen Sodium [Aleve] 220 mg PO DAILY@1200 PRN 06/23/22 06/23/22 Pramipexole [Mirapex] 0.125 mg PO DAILY 06/23/22 06/23/22 Trospium Chloride [Sanctura XR] 60 mg PO HS 06/23/22 06/23/22 Turmeric Root Extract [Turmeric] 500 mg PO DAILY@1630 06/23/22 06/23/22 Zinc Sulfate 50 mg PO DAILY@1200 06/23/22 06/23/22 cloZAPine [Clozaril] 50 mg PO BID-W/MEALS 06/23/22 06/23/22 guaiFENesin [Mucinex] 1,200 mg PO BID 06/23/22 06/23/22 Allergies Allergy/AdvReac Type Severity Reaction Status Date / Time amoxicillin [From Augmentin] Allergy Rash/Hives Verified 11/14/23 05:56 capsaicin [From Zostrix] Allergy Rash/Hives Verified 11/14/23 05:56 clavulanic acid Allergy Rash/Hives Verified 11/14/23 05:56 [From Augmentin] Review of Systems ROS Statement: Those systems with pertinent positive or pertinent negative responses have been documented in the HPI. ROS Other: All systems not noted in ROS Statement are negative. Past Medical History Past Medical History: Cancer, Memory Impairment, Seizure Disorder, Thyroid Disorder Additional Past Medical History / Comment(s): hx. cervical cancer, dizzy spells & falling, breast ca History of Any Multi-Drug Resistant Organisms: None Reported Past Surgical History: Breast Surgery Additional Past Surgical History / Comment(s): surg for breast abscess x2, lumpectomy left Past Anesthesia/Blood Transfusion Reactions: No Reported Reaction Past Psychological History: Anxiety, Schizophrenia Smoking Status: Never smoker Past Alcohol Use History: None Reported Past Drug Use History: None Reported - Past Family History Mother Family Medical History: No Reported History General Exam Limitations: no limitations General appearance: alert, in no apparent distress Head exam: Present: atraumatic, normocephalic, normal inspection Eye exam: Present: normal appearance, PERRL, EOMI. Absent: scleral icterus, conjunctival injection, periorbital swelling ENT exam: Present: normal exam, normal oropharynx, mucous membranes moist Neck exam: Present: normal inspection, tenderness. Absent: meningismus, full ROM (In c-collar), lymphadenopathy Respiratory exam: Present: normal lung sounds bilaterally. Absent: respiratory distress, wheezes, rales, rhonchi, stridor Cardiovascular Exam: Present: regular rate, normal rhythm, normal heart sounds. Absent: systolic murmur, diastolic murmur, rubs, gallop, clicks Extremities exam: Present: normal inspection, full ROM, tenderness (Bilateral knee tenderness, ecchymosis and swelling noted), normal capillary refill. Absent: pedal edema, joint swelling, calf tenderness Back exam: Present: full ROM. Absent: tenderness, paraspinal tenderness, vertebral tenderness Neurological exam: Present: alert, oriented X3, reflexes normal. Absent: motor sensory deficit Skin exam: Present: warm, dry, intact, normal color. Absent: rash Course Vital Signs 11/14/23 11/14/23 05:56 08:53 Temperature 97.3 F L 98.2 F Pulse Rate 83 86 Respiratory 16 18 Rate Blood Pressure 127/61 142/86 O2 Sat by Pulse 100 98 Oximetry Medical Decision Making - Medical Decision Making Was pt. sent in by a medical professional or institution (, PA, SENIOR GENETIC COUNSELOR, urgent care, hospital, or senior living...) When possible be specific @ -No Did you speak to anyone other than the patient for history (EMS, parent, family, police, friend...)? What history was obtained from this source @ -No Did you review nursing and triage notes (agree or disagree)? Why? @ -I reviewed and agree with nursing and triage notes Were old charts reviewed (outside hosp., previous admission, EMS record, old EKG, old radiological studies, urgent care reports/EKG's, senior living records)? Report findings @ -No old charts were reviewed Differential Diagnosis (chest pain, altered mental status, abdominal pain women, abdominal pain men, vaginal bleeding, weakness, fever, dyspnea, syncope, headache, dizziness, GI bleed, back pain, seizure, CVA, palpatations, mental health, musculoskeletal)? @ -[Fall, intracranial hemorrhage, cervical fracture, cervical strain, knee contusion, leg fracture EKG interpreted by me (3pts min.). @ -None X-rays interpreted by me (1pt min.). @ -X-ray bilateral knees shows degenerative changes, soft tissue swelling no acute fracture CT interpreted by me (1pt min.). @ -CT brain, C-spine no intracranial hemorrhage, mass effect degenerative changes noted, cervical spine no acute fracture or malalignment degenerative changes. U/S interpreted by me (1pt. min.). @ -None done What testing was considered but not performed or refused? (CT, X-rays, U/S, labs)? Why? @ -None What meds were considered but not given or refused? Why? @ -None Did you discuss the management of the patient with other professionals (professionals i.e. , PA, SENIOR GENETIC COUNSELOR, lab, RT, psych nurse, web content & social media manager, carbonizer, teacher, parachute officer, case management director)? Give summary @ -No Was smoking cessation discussed for >3mins.? @ -No Was critical care preformed (if so, how long)? @ -No Were there social determinants of health that impacted care today? How? (Homelessness, low income, unemployed, alcoholism, drug addiction, transportation, low edu. Level, literacy, decrease access to med. care, senior living, rehab)? @ -No Was there de-escalation of care discussed even if they declined (Discuss DNR or withdrawal of care, Hospice)? DNR status @ -No What co-morbidities impacted this encounter? (DM, HTN, Smoking, COPD, CAD, Cancer, CVA, ARF, Chemo, Hep., AIDS, mental health diagnosis, sleep apnea, morbid obesity)? @ -None Was patient admitted / discharged? Hospital course, mention meds given and route, prescriptions, significant lab abnormalities, going to OR and other pertinent info. @ -Discharge imaging was negative patient is vitally stable, able to ambulate with no complaints patient is discharged in stable condition return parameters janae. Undiagnosed new problem with uncertain prognosis? @ -No Drug Therapy requiring intensive monitoring for toxicity (Heparin, Nitro, Insulin, Cardizem)? @ -No Were any procedures done? @ -No Diagnosis/symptom? @ -Fall, closed head injury, knee contusion Acute, or Chronic, or Acute on Chronic? @ -Acute Uncomplicated (without systemic symptoms) or Complicated (systemic symptoms)? @ -Uncomplicated Side effects of treatment? @ -No Exacerbation, Progression, or Severe Exacerbation? @ -No Poses a threat to life or bodily function? How? (Chest pain, [place], [place], pneumonia, PE, COPD, DKA, ARF, appy, cholecystitis, CVA, Diverticulitis, Homicidal, Suicidal, threat to staff... and all critical care pts) @ -No Disposition Clinical Impression: Fall, Knee contusion, Head injury, Neck pain Disposition: HOME SELF-CARE Condition: Stable Instructions (If sedation given, give patient instructions): Head Injury (ED) Additional Instructions: Please return to the Emergency Department if symptoms worsen or any other concerns. Is patient prescribed a controlled substance at d/c from ED?: No Referrals: Ashish Ferrara MD [Primary Care Provider] - 1-2 days Time of Disposition: 08:25
--- NOTE | 2023-11-14 07:47 | XR ---
EXAMINATION TYPE: XR knee complete bilateral DATE OF EXAM: 11/14/2023 COMPARISON: None HISTORY: Pain, fall TECHNIQUE: Bilateral knees are examined in 3 projections each FINDINGS: Right knee: There is is advanced deformity of the medial compartment right knee. Mild degenerative ch anges are evident. Lateral compartment. Tibial plateau and femoral condylar spurring is present. Ther e is loss of the patellofemoral joint space. Large posterior patellar spurring superiorly and inferio rly along the superior anterior distal femur. Left knee: There is advanced degenerative changes with deformity of the medial compartment left knee. Moderate narrowing and degenerative changes are at the lateral compartment. Medial femoral condylar and medial tibial plateau spurring is present. There is loss of the patellofemoral joint space. Large posterior inferior patellar spur is present. A smaller superior posterior patellar spurs present. No joint effusion is evident. IMPRESSION: 1. Advanced degenerative changes medial compartments and patellofemoral compartments bilateral knees . Milder to moderate degenerative changes are within the lateral compartments. 2. No acute osseous abnormalities bilateral knees
--- NOTE | 2023-11-14 08:09 | CT ---
EXAMINATION TYPE: CT brain kal wo con DATE OF EXAM: 11/14/2023 COMPARISON: 08/07/2021 HISTORY: neck pain after frequent falls CT DLP: 1363.90 mGycm, Automated exposure control for dose reduction was used. CONTRAST: Patient injected with 0 mL of Isovue 300. CT of the brain is performed utilizing 3 mm thick sections through the posterior fossa and 3 mm thick sections through the remaining calvarium. Study is performed within 24 hours of arrival to the hospital. No abnormal hyperdensity is present to suggest an acute intracranial hemorrhage. No mass lesion is evident. No acute infarcts are evident. Some minimal periventricular white matter hypodensity is present, lik alvin on the basis of chronic white matter ischemic changes. Ventricles and sulci are appropriate for the patient age. Paranasal sinuses and mastoid air cells within the [id number] are clear. IMPRESSIONS: 1. No acute intracranial process. Follow-up MRI can be performed as clinically indicated. 2. Mild chronic-appearing. Ventricular white matter ischemic changes. CT cervical spine. COMPARISON: 08/07/2021 CT of the cervical spine is performed in the axial plane at 2 mm thick sections. Reconstructed image s in the coronal, and sagittal plane are reviewed on the computer. No acute fractures are evident. Vertebral body alignment is normal. Degenerative disc changes Disc height is present C5-6 C6-7. Small endplate spurs are present C5-6. Uncovertebral joint hypertro phy is present at C5-6 with moderate foraminal narrowing. Moderate to severe foraminal narrowing is p resent C6-7. Vertebral body heights are preserved. No spinal canal stenosis is evident. There are large anterior vertebral body spurs present C5-C6 IMPRESSION: 1. No acute osseous abnormality cervical spine. 2. Degenerative disc changes and foraminal stenosis C5-6 and C6-7. 3. Findings appear similar to comparison study
[2023-11-14 09:34] VITALS: BP 142/86; PULSE 86; RESP 18; TEMP 98.2
== END 2023-11-14 10:28 | disposition home or self-care (01) ==
LOC: EC 05:52
DX: S09.90XA Unspecified injury of head, initial encounter (principal); S80.02XA Contusion of left knee, initial encounter; S80.01XA Contusion of right knee, initial encounter; M54.2 Cervicalgia; Z88.0 Allergy status to penicillin; Z88.1 Allergy status to other antibiotic agents; Z88.8 Allergy status to other drugs, medicaments and biological substances; W18.30XA Fall on same level, unspecified, initial encounter; Y92.009 Unspecified place in unspecified non-institutional (private) residence as the place of occurrence of the external cause
CPT/HCPCS: 70450; 72125; 99284

== ENCOUNTER → 2025-02-05 | Outpatient (CLI) | payer MEDICARE, BC ==
--- NOTE | 2025-02-05 13:28 | MM ---
Reason for Exam: Follow-up at short interval from prior study. Last mammogram was performed 1 year(s) and 5 month(s) ago. Patient History: Menarche at age 13. First Full-Term at age 16. Postmenopausal. Breast cancer, left, age 77. Other cancer. 2018, Lumpectomy on the Left side. Prior Study Comparison: 12/01/2016 Screening Mammogram, Unknown. 07/05/2017 Screening Mammogram, Unknown. 09/21/2017 Screening Mammogram, Unknown. 11/14/2018 Bilateral Diagnostic Mammogram, [facility]. 04/06/2020 Bilateral Diagnostic Mammogram, [facility]. 09/06/2023 Bilateral MG 3D screening mammo w/cad, [facility]. Tissue Density: There are scattered areas of fibroglandular density. Findings: Analyzed By CAD. Left breast biopsy clip. There is no suspicious group of microcalcifications or new suspicious mass. Benign-appearing calcifications bilaterally. No new suspicious masses, calcifications or distortions. Overall Assessment: Benign, BI-RAD 2 Management: Screening Mammogram of both breasts in 1 year. Dermatologic evaluation for skin finding to rule out skin malignancy. Results were given to the patient verbally at the time of exam. Patient should continue monthly self-breast exams. A clinical breast exam by your physician is recommended on an annual basis. This exam should not preclude additional follow-up of suspicious palpable abnormalities. Note on Reva scores and lifetime risk: 1. A Reva score greater than 3% is considered moderate risk. If this is the case, consider specialist referral to assess eligibility for a risk reducing agent. 2. If overall lifetime risk for the development of breast cancer is 20% or higher, the patient may qualify for future screening with alternating mammogram and breast MRI. [facility], , 02/05/2025 1:25 PM. Electronically signed and approved by: Tavon Jenkins DO
== END | disposition home or self-care (01) ==
LOC: RADMAMWWP 12:56
PROVIDERS: ATTEND General Practice
DX: C50.512 Malignant neoplasm of lower-outer quadrant of left female breast (principal); R92.323 Mammographic fibroglandular density, bilateral breasts; Z78.0 Asymptomatic menopausal state
CPT/HCPCS: 77066; G0279; 77062